=== PATIENT | male | born 1945 | race Caucasian/White ===

== ENCOUNTER → 2018-01-17 06:15 | Outpatient (CLI) | payer MEDICARE, SELFPAY ==
[2018-01-17 09:06] LABS: AST(SGOT) 39 U/L (15-37); Alanine Aminotransfer ALT/SGPT 40 U/L (16-61); Albumin, Serum 3.5 g/dL (3.2-5.0); Alkaline Phosphatase 102 U/L (45-117); Anion Gap 6 (5-15); BUN 25 mg/dL (7-18); BUN/Creat Ratio 18.5 RATIO (10-20); Bilirubin, Direct 0.08 mg/dL (0.00-0.30); Calcium,Total 8.7 mg/dL (8.5-10.1); Chloride 106 mmol/L (98-107); Cholesterol 147 mg/dL (200); Creatinine, Serum 1.35 mg/dL (0.70-1.30); EST Glomerular Filtration Rate 55 mL/min (>60); Est Glom Filt Rate - Afr Amer 67 mL/min (>60); Globulin 3.8 g/dL (2.2-4.2); Glucose 107 mg/dL (74-106); High Density Lipoprotein 21 mg/dL; Potassium 4.5 mmol/L (3.5-5.1); Protein, Total 7.3 g/dL (6.4-8.2); Sodium Level 142 mmol/L (136-145); T4 Total, Thyroxin 7.4 ug/dL (4.5-12.1); Triglycerides 779 mg/dL
== END ==
PROVIDERS: Family Provider Family Medicine; PCP Family Medicine; Visit Provider Internal Medicine Cardiovascular Disease
DX: E78.1 Pure hyperglyceridemia (principal); I25.10 Atherosclerotic heart disease of native coronary artery without angina pectoris; I10 Essential (primary) hypertension
CPT/HCPCS: 36415; 80048; 80061; 80076; 84436; 84443

== ENCOUNTER → 2018-03-10 07:31 | Outpatient (CLI) | payer MEDICARE, SELFPAY ==
[2018-03-10 08:35] LABS: AST(SGOT) 26 U/L (15-37); Alanine Aminotransfer ALT/SGPT 29 U/L (16-61); Albumin, Serum 3.7 g/dL (3.2-5.0); Alkaline Phosphatase 79 U/L (45-117); Bilirubin, Direct 0.23 mg/dL (0.00-0.30); Cholesterol 125 mg/dL (200); Globulin 3.8 g/dL (2.2-4.2); High Density Lipoprotein 34 mg/dL; Protein, Total 7.5 g/dL (6.4-8.2); Triglycerides 137 mg/dL; Very Low Density Lipoprotein 27 mg/dL (5-40)
== END ==
PROVIDERS: Family Provider Family Medicine; PCP Family Medicine; Visit Provider Physician Assistant Medical
DX: I25.118 Atherosclerotic heart disease of native coronary artery with other forms of angina pectoris (principal); E78.1 Pure hyperglyceridemia
CPT/HCPCS: 36415; 80061; 80076

== ENCOUNTER → 2018-09-15 07:39 | Outpatient (CLI) | payer MEDICARE, SELFPAY ==
--- NOTE | 2018-09-15 07:45 | RAD_ITS ---
STUDY: X-RAY - ABDOMEN/PELVIS REASON FOR EXAM: Male, 72 years old. History of kidney stones TECHNIQUE: Two AP supine views of the abdomen and pelvis. COMPARISON: 09/22/2017 FINDINGS: Normal visualized lung bases. There is an unremarkable bowel gas pattern. There is no demonstrated free abdominal air. There appears to be a left nephrolith measuring 9 mm. This appears grossly unchanged as compared to the most recent prior exam. Normal soft tissue structures. There are diffuse degenerative changes of the visualized lumbar spine. Left hip postsurgical changes RAD/Abdomen Single View IMPRESSION: Appearance of left nephrolithiasis Electronically Signed: Shyam Becker DO at 7:13 EST Tel , Service support ,
== END ==
PROVIDERS: Family Provider Family Medicine; PCP Family Medicine; Referring Provider Urology; Visit Provider Urology
DX: N20.0 Calculus of kidney (principal)
CPT/HCPCS: 74018

== ENCOUNTER 2018-10-12 12:04 | Day surgery (SDC) | payer MEDICARE, SELFPAY ==
[2018-10-12 12:35] VITALS: BP 106/57; PULSE 54; RESP 16; TEMP 37.1; O2SAT 97; BMI 33.1
[2018-10-12] MEDS: Cefazolin 2 GM in 0.9% Normal Saline 100 ML IV (14:42)
--- NOTE | 2018-10-12 14:47 | DCINST_ITS ---
Discharge Diet: Light diet - advance as tolerated Discharge Activity: Return to Normal Activity Call your doctor if your incision/area has: Continuous Slow Oozing, Sudden Increased Bleeding, Increased Pain/ Swelling, Increased Redness, Foul Smelling Discharge, Swelling at the incision site Allergies/Adverse Reactions: Allergies ranolazine [From Ranexa] Allergy (Verified 04/27/18 17:45) Unknown Sulfa (Sulfonamide Antibiotics) Allergy (Verified 04/27/18 17:45) Rash codeine Adverse Reaction (Verified 04/27/18 17:45) Nausea Medications to take at Discharge Folic Acid 0.4 mg PO DAILY 08/27/13 Multivitamins,Therapeutic [Multivitamin] 1 tab PO DAILY 08/27/13 Glucosamine Sulfate Dipot Chlr [Glucosamine Relief] 1 tab PO BID 10/01/14 [place]-3/Dha/Epa/Fish Oil [Fish Oil 1,400 mg Softgel] 1 tab PO DAILY 10/03/14 Meloxicam [Mobic] 15 mg PO QODAY 10/01/15 Acetaminophen [Pain Relief Extra Strength] 500 mg PO DAILY 01/07/16 clopidogrel 75 mg tablet 75 mg PO DAILY #90 tab 10/19/17 isosorbide mononitrate ER 60 mg tablet,extended release 24 hr 60 mg PO QAM #90 tab 10/19/17 lisinopril 10 mg-hydrochlorothiazide 12.5 mg tablet 0.5 tab PO DAILY #90 tab 10/19/17 metoprolol succinate ER 25 mg tablet,extended release 24 hr 25 mg PO QDAY #90 tab 10/19/17 pravastatin 40 mg tablet 40 mg PO QHS #90 tab 10/19/17 pyridoxine (vitamin B6) 100 mg tablet 100 mg PO QDAY 01/18/18 fenofibrate nanocrystallized 145 mg tablet 145 mg PO QDAY #90 tab 01/21/18 sour dos santos extract 1,000 mg capsule 1,000 mg PO DAILY 04/27/18 Amlodipine [Norvasc] 2.5 mg PO DAILY 10/05/18 Acetaminophen [Tylenol Extra Strength] 500 mg PO Q4H PRN PRN #20 tablet 10/12/18 Ibuprofen 600 mg PO Q6H PRN PRN #20 tablet 10/12/18 The following prescriptions were given: Acetaminophen [Tylenol Extra Strength] 500 mg PO Q4H PRN PRN #20 tablet PRN Reason: Pain Ibuprofen 600 mg PO Q6H PRN PRN #20 tablet PRN Reason: Pain Primary Care Physician: Elijah Rodríguez MD [Primary Care Provider] - Test Results: Test results from this visit will be discussed in further detail at your follow- up appointment, if applicable. Please Follow Up With: Daljit Yu MD When: in 2 weeks, please call to make an appointment with edinson
--- NOTE | 2018-10-12 15:33 | PCM.OPRPT ---
Report of Operation Date of Procedure: 10/12/18 Pre-Operative Diagnosis: Left kidney stone Post-Operative Diagnosis: Same Surgery/Procedure Performed:: left extracorporeal shockwave lithotripsy Description of Surgical Findings:: 72-year-old male taken back to the operating room after smooth induction of general anesthesia he was placed supine on the table and then we localize the stone in the left kidney under fluoroscopy we placed the stone in the F2 focal point of the lithotripter machine and a total of 3000 shockwaves were delivered to the stone the first initial 2000 shockwaves were at a rate of 60 power up to 7 and then after good fragmentation we increased the rate up to 120, 5 with a good fragmentation at the end of the treatment cycle, at the end of the treatment cycle stone are broken up really well anesthesia is being reversed and plan to see him back in a few weeks with a KUB. Type of Anesthesia:: General Drains: none - Admit VTE Documentation VTE Present on Admission: No VTE Mechan Device Prophylaxis: SCD's VTE Pharm Prophylaxis ordered?: No
[2018-10-12 15:41] VITALS: BP 106/57; BP 115/65; PULSE 65; RESP 14; TEMP 36.6; O2SAT 97
[2018-10-12 15:45] VITALS: BP 106/57; BP 110/71; PULSE 65; RESP 16; O2SAT 96
[2018-10-12 16:00] VITALS: BP 106/57; BP 121/78; PULSE 60; RESP 18; O2SAT 99
[2018-10-12] MEDS: Ketorolac 15 MG/ML Vial IV (16:12)
[2018-10-12 16:15] VITALS: BP 106/57; BP 109/71; PULSE 56; RESP 18; TEMP 36.2; O2SAT 99
[2018-10-12] MEDS: Tamsulosin HCl 0.4 MG Capsule PO (19:20)
[2018-10-12 19:24] VITALS: BP 106/57
== END 2018-10-12 19:25 | disposition home or self-care (01) ==
LOC: SDC 12:05 → AC 12:07
PROVIDERS: Family Provider Family Medicine; PCP Family Medicine; Referring Provider Urology; Visit Provider Urology
PROC: (CPT 50590; principal; 2018-10-12 13:55)
DX: N20.0 Calculus of kidney (principal); N40.1 Benign prostatic hyperplasia with lower urinary tract symptoms; R33.8 Other retention of urine; R35.1 Nocturia; I25.10 Atherosclerotic heart disease of native coronary artery without angina pectoris; I10 Essential (primary) hypertension; E78.00 Pure hypercholesterolemia, unspecified; H91.93 Unspecified hearing loss, bilateral; M19.90 Unspecified osteoarthritis, unspecified site; Z79.02 Long term (current) use of antithrombotics/antiplatelets; Z79.899 Other long term (current) drug therapy; Z85.528 Personal history of other malignant neoplasm of kidney; Z87.442 Personal history of urinary calculi; Z86.73 Personal history of transient ischemic attack (TIA), and cerebral infarction without residual deficits
CPT/HCPCS: 00873; 50590; J7120; J2405

== ENCOUNTER → 2018-10-27 09:18 | Outpatient (CLI) | payer MEDICARE, SELFPAY ==
[2018-10-12 12:35] VITALS: BMI 33.1
--- NOTE | 2018-10-27 09:23 | RAD_ITS ---
STUDY: X-RAY - ABDOMEN/PELVIS REASON FOR EXAM: Male, 73 years old. Left-sided lithotripsy. TECHNIQUE: KUB COMPARISON: X-ray abdomen 09/15/2018, 09/22/2017. FINDINGS: Small radiodensity projecting over the left renal lower pole calyceal position. No apparent calculi projecting over the right kidney. No apparent calculi projecting along the course of the ureters. Stable left pelvic phlebolith. Unremarkable bowel pattern. Mild scoliosis and mild lumbar spondylosis. Postsurgical changes of the left hip joint, arthroplasty and plate and screw fixation of acetabulum. Moderate degenerative features of the right hip joint with joint margin osteophytic lipping, mild joint space narrowing, acetabular sclerosis. RAD/Abdomen Single View IMPRESSION: Small residual calculus lower pole left kidney calyceal position. No visible calculi of the right kidney or along the course of the ureters. Electronically Signed: Jameson Leal MD at 13:58 EST Tel , Service support ,
== END ==
PROVIDERS: Family Provider Family Medicine; PCP Family Medicine; Referring Provider Urology; Visit Provider Urology
DX: N20.0 Calculus of kidney (principal)
CPT/HCPCS: 74018

== ENCOUNTER → 2018-11-28 09:30 | Outpatient (CLI) | payer MEDICARE, SELFPAY ==
--- OUTSIDE RECORDS SUMMARY | 2019-01-30 17:27 | XMS RPT_ITS ---
:1945 Author Organization OHIP Support Name Relationship Address Phone R Unavailable Unavailable Unavailable MONE, ANNA Unavailable [address] + [place] [address] ARIE SHORESIE Unavailable Unavailable + R Unavailable Unavailable Unavailable MONE, ANNA Unavailable [address] + [place] [address] ARIE SHORESIE Unavailable Unavailable + R Unavailable Unavailable Unavailable MONE, ANNA Unavailable [address] + [place] [address] ARIE SHORESIE Unavailable Unavailable + R Unavailable Unavailable Unavailable MONE, ANNA Unavailable [address] + [place] [address] ARIE SHORESIE Unavailable Unavailable + [place] [address] R Unavailable Unavailable Unavailable MONE, ANNA Unavailable [address] + [place] [address] ARIE SHORESIE Unavailable Unavailable + R Unavailable Unavailable Unavailable MONE, ANNA Unavailable [address] + [place] [address] R Unavailable Unavailable Unavailable MONE, ANNA Unavailable [address] + [place] [address] R Unavailable Unavailable Unavailable MONE, ANNA Unavailable [address] + [place] [address] R Unavailable Unavailable Unavailable MONE, ANNA Unavailable [address] + [place] [address] R Unavailable Unavailable Unavailable MONE, ANNA Unavailable [address] + [place] [address] R Unavailable Unavailable Unavailable MONE, ANNA Unavailable [address] + [place] [address] R Unavailable Unavailable Unavailable MONE, ANNA Unavailable [address] + [place] [address] Care Team Providers Name Role Phone Daljit Yu Attending Unavailable AimeeDaljit Referring Unavailable TAFOYA, ELIJAH O Primary Care Unavailable Ynes Rendon Attending Unavailable Ynes Rendon Referring Unavailable TAFOYA, ELIJAH O Primary Care Unavailable Pratima, Austen Attending Unavailable TAFOYA, ELIJAH O Referring Unavailable Pratima, Eolia Attending Unavailable Pratima, Eolia Referring Unavailable TAFOYA, ELIJAH O Primary Care Unavailable Martha Lindsay Attending Unavailable Ynes Rendon Attending Unavailable TAFOYA, ELIJAH O Referring Unavailable RendonYnes ly Attending Unavailable RendonYnes ly Referring Unavailable TAFOYA, ELIJAH O Primary Care Unavailable Araseli Dao Attending Unavailable Ynes Rendon Attending Unavailable TAFOYA, ELIJAH O Referring Unavailable TAFOYA, ELIJAH O Primary Care Unavailable Ridge Duvall Attending Unavailable TAFOYA, ELIJAH O Referring Unavailable TAFOYA, ELIJAH O Primary Care Unavailable Daljit Yu Attending Unavailable AimeeDaljit Referring Unavailable TAFOYA, ELIJAH O Primary Care Unavailable AimeeDaljit Attending Unavailable AimeeDaljit Referring Unavailable TAFOYA, ELIJAH O Primary Care Unavailable JAKY QUIROGA (INSURANCE PROCESSOR) Attending Unavailable QUIROGA, JAKY (INSURANCE PROCESSOR) Referring Unavailable QUIROGA, JAKY (INSURANCE PROCESSOR) Referring Unavailable QUIROGA, JAKY (INSURANCE PROCESSOR) Referring Unavailable QUIROGA, JAKY (INSURANCE PROCESSOR) Referring Unavailable QUIROGA, JAKY (INSURANCE PROCESSOR) Referring Unavailable QUIROGA, JAKY (INSURANCE PROCESSOR) Referring Unavailable QUIROGA, JAKY (INSURANCE PROCESSOR) Attending Unavailable JUSTINO SMITH Referring Unavailable QUIROGA, JAKY (INSURANCE PROCESSOR) Referring Unavailable QUIROGA, JAKY (INSURANCE PROCESSOR) Referring Unavailable QUIROGA, JAKY (INSURANCE PROCESSOR) Referring Unavailable QUIROGA, JAKY (INSURANCE PROCESSOR) Referring Unavailable QUIROGA, JAKY (INSURANCE PROCESSOR) Attending Unavailable QUIROGA, JAKY (INSURANCE PROCESSOR) Referring Unavailable Tafoya, Elijah Attending Unavailable Tafoya, Elijah Primary Care Unavailable Tafoya, Elijah Attending Unavailable Tafoya, Elijah Primary Care Unavailable Tafoya, Elijah Admitting Unavailable Tafoya, Elijah Attending Unavailable Tafoya, Elijah Primary Care Unavailable Tafoya, Elijah Attending Unavailable Tafoya, Elijah Primary Care Unavailable Ben Grossman Consulting Unavailable Tafoya, Elijah Admitting Unavailable Tafoya, Elijah Attending Unavailable Tafoya, Elijah Primary Care Unavailable Tafoya, Elijah Admitting Unavailable Tafoya, Elijah Attending Unavailable Tafoya, Leijah Primary Care Unavailable Tafoya, Elijah Attending Unavailable Tafoya, Elijah Primary Care Unavailable Ben Grossman Attending Unavailable Tafoya, Elijah Primary Care Unavailable Ben Grossman Admitting Unavailable Ben Grossman Attending Unavailable Tafoya, Elijah Primary Care Unavailable Ben Grossman Attending Unavailable Tafoya, Elijah Primary Care Unavailable PROBLEMS PROBLEMS DATE TYPE CONDITION / CODE ATTENDING STATUS SOURCE 12/01/2018 Unknown I25.118 - Pratima, Eolia Active [facility] [place] [facility] coronary artery with Repository other forms of angina pectoris / I25.118(ICD-10) 12/01/2018 Unknown I10 - Essential Pratima, Eolia Active [facility] (primary) hypertension Community / I10(ICD-10) Hospital Repository 12/01/2018 Unknown E78.00 - Pure Pratima, Austen Active [place] hypercholesterolemia, Community unspecified / Hospital E78.00(ICD-10) Repository 11/28/2018 Unknown E78.5 - Rendon, Active [facility] Hyperlipidemia, Ynes Community unspecified / Hospital E78.5(ICD-10) Repository 10/27/2018 Unknown N20.0 - Calculus of Aimee, Daljit Active [facility] kidney / N20.0(ICD-10) [facility] Repository 07/21/2018 Active Generalized abdominal NA Active [facility] pain / R10.84(ICD-10) [facility] [place] Repository 07/21/2018 Active Unknown / UNK(Unknown) NA Active [facility] [place] Repository 10/02/2015 Active Malignant neoplasm of NA Active [facility] ascending colon / Clinic Main C18.2(ICD-10) [place] Repository 01/21/2018 Unknown E78.1 - Pure Rendon, Active [facility] hyperglyceridemia / [facility] E78.1(ICD-10) Hospital Repository PROCEDURES PROCEDURES No Procedure Records FoundRESULTS RESULTS CARDIOLOGY VISIT Observed: 12/01/2018 Status: F Source: [place] REPORT 9:40 AM [facility] REPOSITORY [facility] [address] [place] [address] OFFICE VISIT Date of Service: 12/01/18 MR#: [id number] Acct: [id number] Name: BEATRICE SHORE Rep #: [id number] : 1945 Provider: Austen Andujar MD Age/Sex: 73/M Location: [facility] [place] Status: Signed HPI HPI Chief Complaint: Follow up Details: BEATRICE SHORE, is a 73 M who presents to the office today for a follow-up visit. He is a gentleman with a history of hypertension, coronary artery disease, hyperlipidemia transient ischemic attack episodes who returns for routine follow-up visit. He denies any chest pain or shortness breath or paroxysmal nocturnal dyspnea pedal edema he tells me that he had some problems with his kidneys underwent lithotripsy successfully without any problems but he does have some mild renal dysfunction. He has had no neck arm or jaw discomfort suggest angina. His physical exam here today demonstrates clear lung hirsch regular rate and rhythm and no pedal edema his blood pressure is under excellent control. Intake Vital Signs12/01/18 Height 5 ft 11 in 12/01/18 Weight: 248 lb 12/01/18 Body Mass Index (BMI) 34.5 12/01/18 Blood Pressure 106/62 12/01/18 Blood Pressure Location Lt brachial Intake Visit Reasons: 6 M FU Safety Teacher Required: No Is patient in pain?: No Allergies ranolazine [From Ranexa] Allergy (Verified 12/01/18 09:01) Unknown Sulfa (Sulfonamide Antibiotics) Allergy (Verified 12/01/18 09:01) Rash codeine Adverse Reaction (Verified 12/01/18 09:01) Nausea Medications Folic Acid 0.4 mg PO DAILY 08/27/13 [History Confirmed 12/01/18] Multivitamins,Therapeutic [Multivitamin] 1 tab PO DAILY 08/27/13 [History Confirmed 12/01/18] Glucosamine Sulfate Dipot Chlr [Glucosamine Relief] 1 tab PO BID 10/01/14 [History Confirmed 12/01/18] Marion-3/Dha/Epa/Fish Oil [Fish Oil 1,400 mg Softgel] 1 tab PO DAILY 10/03/14 [History Confirmed 12/01/18] clopidogrel 75 mg tablet 75 mg PO DAILY #90 tab 10/19/17 [Rx Confirmed 12/01/18] lisinopril 10 mg-hydrochlorothiazide 12.5 mg tablet 0.5 tab PO DAILY #90 tab 10/19/17 [Rx Confirmed 12/01/18] metoprolol succinate ER 25 mg tablet,extended release 24 hr 25 mg PO QDAY #90 tab 10/19/17 [Rx Confirmed 12/01/18] pyridoxine (vitamin B6) 100 mg tablet 100 mg PO QDAY 01/18/18 [History Confirmed 12/01/18] fenofibrate nanocrystallized 145 mg tablet 145 mg PO QDAY #90 tab 01/21/18 [Rx Confirmed 12/01/18] sour reyes extract 1,000 mg capsule 1,000 mg PO DAILY 04/27/18 [History Confirmed 12/01/18] Amlodipine [Norvasc] 2.5 mg PO DAILY 10/05/18 [History Confirmed 12/01/18] Acetaminophen [Tylenol Extra Strength] 500 mg PO Q4H PRN PRN #20 tab 10/12/18 [Rx Confirmed 12/01/18] Ibuprofen 600 mg PO Q6H PRN PRN #20 tab 10/12/18 [Rx Confirmed 12/01/18] pravastatin 40 mg tablet 40 mg PO QHS #90 tab 10/14/18 [Rx Confirmed 12/01/18] isosorbide mononitrate ER 60 mg tablet,extended release 24 hr 60 mg PO QAM #90 tab 10/17/18 [Rx Confirmed 12/01/18] PFS Medical History Atherosclerotic heart disease of [place] coronary artery with other forms of angina pectoris (Chronic) Hypertension (Chronic) Transient ischemic attack (Chronic) WENDY (obstructive sleep apnea) (Chronic) Hyperlipidemia (Chronic) Essential hypertension (Chronic) Hypertriglyceridemia (Chronic) CAD (coronary artery disease) (Chronic) CKD (chronic kidney disease) stage 3, GFR 30-59 ml/min (Chronic) Arthritis (Acute) Heart disease (Acute) Hemorrhoids (Acute) History of CVA (cerebrovascular accident) (Acute) Knee pain (Acute) Shoulder pain (Acute) Stomach ulcer (Acute) hx of cancer (Acute) Surgical History History of colectomy (Resolved) History of left hip replacement (Resolved) History of lithotripsy (Resolved) Family History Father CAD (coronary artery disease) Mother CAD (coronary artery disease) Sister HLD (hyperlipidemia) TIA (transient ischemic attack) Social History Smoking Status: Never smoker alcohol intake: never substance use type: does not use caffeine: No what type of physical activity do you participate in: bicycling frequency: daily duration: 30-45 minutes/day seatbelt use: always do you feel safe at home: Yes ROS Const Const: Negative for fatigue, weakness, night sweats, excessive sweating, frequent falls, headache(s) or daytime sleepiness Eyes Eyes: Negative for loss of peripheral vision, transient loss of vision, blind spots, double vision or blurry vision ENT ENT: Negative for headache(s), dizziness, balance problems, Nosebleed/epistaxis, tongue swelling or lip swelling Cardio Chest Pain: No Palpitations: No Edema: None Muscle aches with walking: None Resp Respiratory: Negative for SOB at rest, SOB orthopnea\SOB lying down, Cough, paroxysmal nocturnal dyspnea or SOB with activity GI GI: Negative nausea, vomiting, heartburn, black,tarry stools or bright, red blood in stools : Negative for hematuria Musc Musc: Negative for balance problems, muscle aches/ myalgia, muscle weakness or joint pain Skin Skin: Negative non-healing lesions, unusual bruising or rash Neuro Neuro: Negative for weakness, frequent falls, headache(s), double vision, dizziness, lightheadedness, orthostatic symptoms, blurry vision or lack of coordination Bladimir Hematologic/Lymphatic: Negative for easy bruising or easy bleeding Endo Endo: Negative for fatigue, excessive sweating, cold intolerance, heat intolerance, increased thirst/drinking or hair loss Psych Psych: Negative for anxiety or depression Allergy Allergy/Immunology: Negative for throat swelling, Negative for tongue swelling, Negative for hives, Negative for rash, Negative for lip swelling Cardiology Exam Const Appearance: cooperative, healthy appearing, well developed, well groomed and no acute distress Nutritional Appearance: well nourished and average body habitus Orientation: alert, awake and oriented x3 Head Head: normal to inspection, normocephalic and atraumatic Ears: hearing grossly normal bilaterally and external ears normal Nose: external nose normal, nasal mucous membranes and turbinates normal, nares normal, septum normal, no nasal discharge Face and Sinus: face symmetric Mouth: oral mucosae normal, tongue normal, oropharynx normal and moist mucous membranes Teeth and gingiva: dentition normal Throat: posterior oropharynx normal, tonsils normal and uvula midline Eyes General: appearance normal, both eyes and all related structures Eyelids: eyelids normal Conjunctivae: conjunctivae normal Pupils: PERRL, normal by confrontation and accommodation normal EOM: EOM intact bilaterally Neck Neck: normal visual inspection, trachea midline and no JVD JVD: +5 Carotids: normal carotid upstroke and bounding pulses Chest Chest inspection: normal inspection of the chest, symmetric chest movement and normal respiratory effort Auscultation: Bilateral: Clear to Auscultation Cardio Palpation: normal PMI Rate: regular rate Rhythm: regular rhythm Heart sounds: S1 normal, S2 normal and normal, physiologic split S2; negative rub, gallop or murmur GI GI: normal to inspection, soft, no hepatosplenomegaly and bowel sounds present Neuro General: alert, awake, oriented x3, no focal sensory deficit, gait normal and moves all extremities Skin Skin: no rashes or lesions noted Extremities Pulses: Normal: Right Femoral Pulse, Left Femoral Pulse, Right Dorsalis Pedis Pulse, Left Dorsalis Pedis Pulse, Right Posterior Tibial Pulse, Left Posterior Tibial Pulse, Right Radial Pulse, Left Radial Pulse Lower Extremity Edema: None: Bilateral Musculoskel Musculoskeletal: No joint tenderness Psych Psychological: normal affect Assessment AND Plan 1. Atherosclerotic heart disease of [place] coronary artery with other forms of angina pectoris I25.118 Plan He does have mild atherosclerotic cardiovascular disease his last catheterization in 2016 demonstrated a distal subtotal occlusion of the circumflex artery with left to left collaterals. No high-grade stenosis was noted in the LAD or right coronary artery and medical therapy has been recommended and he continues to do well. 2. Essential hypertension I10 Plan He does have a history of hypertension which is well controlled at this particular time and I would not recommend that we make any changes to his current regimen. 3. Pure hypercholesterolemia E78.00 Plan He does have a history of hyperlipidemia his most recent lipid profile demonstrated total cholesterol 139, triglycerides 161, HDL 36 and LDL 71. These numbers are excellent no changes will be made. He should continue with risk factor modification. His is concerned about him having seasonal affective disorder. My only suggestion would be for him to get more sunlight. 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 I25.118 Essential hypertension I10 Pure hypercholesterolemia E78.00 Hyperlipidemia type: pure hypercholesterolemia Supplemental Info Supplemental Information Labs LDL Cholesterol 64 mg/dL (0-130) 03/10/18 HDL Cholesterol 34 mg/dL (40-) L 03/10/18 Triglycerides 137 mg/dL (-199) 03/10/18 VLDL Cholesterol 27 mg/dL (5-40) 03/10/18 12/01/18 0940 <Electronically signed by Austen Andujar MD> Date Austen Andujar MD Cosigner Signature: Date (if applicable) CC: Elijah Tafoya MD CNOVSP Observed: 11/16/2018 Status: COMPLETED Source: [place] 11:00 AM [facility] REPOSITORY Visit (SP) Office (HEMAWS) BEATRICE SHORE ([id number]) 1945 M Date Time Provider Department 11/16/18 11:00 AM JAKY QUIROGA During your visit today, we recorded the following information about you: Temperature Pulse Blood pressure Weight 98.3 degrees 59/minute 121/75 112 kg Jaky Quiroga APRN.INSURANCE PROCESSOR 11/17/2018 12:29 PM Signed Chief Complaint Patient presents with: Established Patient HPI: Beatrice Shore is a 73 year old male who presents here today for follow up colon cancer. Per Dr. Smith's previous note: H/o?CAD?(Heart cath x2; no stents/CABG; medically managed previously with Plavix and ASA), OA?(was on Meloxicam for right knee pain), TIA?(10/2014; manifested by change in concentration and blurred vision) and sleep apnea. ?? Developed acute lower GI bleed in September 2015. Underwent colonoscopy 09/12/2015 and found to have suspicious appearing mass in the cecum--biopsy showed intramucosal carcinoma. ?? Baseline CEA=5.8 ng/mL. ?? Underwent hemicolectomy 10/07/2015. 4.6 cm well diff tumor with invasion through muscularis propria. No LVI No perineural invasion. 30 of 30 nodes negative. No evidence microsatellite instability by IHC. ? Had colonoscopy done 2016. Next due in 3 years. ? No complaints. ? Appetite:good ?Energy level:it's enough Denies fevers or recent illness. 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 Past medical history, appointments, medications, allergies reviewed. No changes. EXAM: BP 121/75 Pulse (!) 59 Temp 36.8 ?C (98.3 ?F) (Oral) Wt 112 kg (247 lb) BMI 33.50 kg/m? APPEARANCE Well appearing, alert, in no acute distress, well- hydrated, well nourished. HEART RRR with normal S1 and S2, no murmurs LUNG clear to auscultation LYMPH NODES No cervical lymphadenopathy, No supraclavicular lymphadenopathy and No axillary lymphadenopathy. ABDOMEN bowel sounds normoactive, soft, non-tender, non-distended, without organomegaly or palpable masses EXTREMITIES No edema NEURO Awake, alert and oriented x 3, Normal gait and No involuntary motions. SKIN Skin color, texture, turgor normal, no suspicious rashes or lesions LABS: CEA: Pending ASSESSMENT/PLAN: 1. 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 ? Per Dr. Smith's previous note: Did not recommend adjuvant chemotherapy based on stage and histologic features. - ?No concerning findings on exam. - CEA pending. - ?Colonoscopy due 2019. - ?Follow up in 6 months with CEA pending today's CEA. - ?Pt. aware to call office with any questions/concerns. The patient indicates understanding of these issues and agrees with the plan. Jaky Quiroga APRN.INSURANCE PROCESSOR Referring Provider: JAKY QUIROGA [[id number]] Allergies As of Date: 11/16/2018 Noted Allergy Reaction CODEINE 01/23/2014 1 - Mental Status Change SULFA (SULFONAMIDE ANTIBIOTICS) 01/23/2014 4 - Hives Date Reviewed: 11/16/2018 Reviewed by: Jaky Quiroga - Fully Assessed Reason for Visit: Established Patient [175] Primary Visit Diagnosis:Malignant neoplasm of ascending colon (HCC) [C18.2] Follow-up and Disposition History Recorded Prescriptions as of 11/16/2018 Sig: FENOFIBRATE NANOCRYSTALLIZED * 1 tablet once daily. CLOPIDOGREL 75 MG TABLET Take 75 mg by mouth once katerine* AMLODIPINE 5 MG TABLET Take 1/2 tablet by mouth once* SOUR REYES EXTRACT 1,000 MG * Take 1 tablet by mouth once d* ISOSORBIDE MONONITRATE ER 60 * Take 60 mg by mouth once katerine* PRAVASTATIN 40 MG TABLET Take 40 mg by mouth once katerine* MELOXICAM 15 MG TABLET Take one tablet by mouth ever* METOPROLOL SUCCINATE ER 25 MG* Take 25 mg by mouth once katerine* DIPHENHYDRAMINE 25 MG-ACETAMI* Take 1 tablet by mouth at bed* PYRIDOXINE (VITAMIN B6) 100 M* Take 100 mg by mouth once suleiman* GLUCOSAMINE AND CHONDROIT SUL.N* Take 1 tablet by mouth twice * LISINOPRIL 10 MG-HYDROCHLOROT* Take 0.5 tablets by mouth onc* FOLIC ACID ORAL Take 400 mcg by mouth once da* OMEGA 3 FISH OIL ORAL Take 950 mg by mouth once suleiman* MULTIVITAMIN CAPSULE Take 1 capsule by mouth once * Medication notes this encounter DIPHENHYDRAMINE 25 MG-ACETAMINOPHEN 500 MG TABLET >> Lui Lloyd MA 11/16/2018 10:43 AM >> LUI LLOYD MA Nov 16, 2018 10:43 AM as necessary Problem List As Of Date 11/16/2018 Noted Resolved Colon polyp [K63.5] INVALID FOR* Rectal bleeding [K62.5] INVALID FOR* Left lower quadrant pain [R10.32] INVALID FOR* Transient cerebral ischemia [G45.9] INVALID FOR* ASCVD (arteriosclerotic cardiovascular disease)*INVALID FOR* Malignant neoplasm of ascending colon (HCC) [C1*INVALID FOR* Malignant neoplasm of colon (HCC) [C18.9] INVALID FOR* Encounter Status:Closed by JAKY QUIROGA INSURANCE PROCESSOR on 11/17/18 PROGRESS Observed: 11/16/2018 Status: COMPLETED Source: [place] 10:44 AM [facility] REPOSITORY HNO ID: [id number] Author: Jaky Quiroga Service: (none) Author Type: Nurse Practitioner Type: Progress Notes Filed: 11/17/2018 12:29 PM Note Text: Chief Complaint Patient presents with: Established Patient HPI: Beatrice Shore is a 73 year old male who presents here today for follow up colon cancer. Per Dr. Smith's previous note: H/o?CAD?(Heart cath x2; no stents/CABG; medically managed previously with Plavix and ASA), OA?(was on Meloxicam for right knee pain), TIA?(10/2014; manifested by change in concentration and blurred vision) and sleep apnea. ?? Developed acute lower GI bleed in September 2015. Underwent colonoscopy 09/12/2015 and found to have suspicious appearing mass in the cecum--biopsy showed intramucosal carcinoma. ?? Baseline CEA=5.8 ng/mL. ?? Underwent hemicolectomy 10/07/2015. 4.6 cm well diff tumor with invasion through muscularis propria. No LVI No perineural invasion. 30 of 30 nodes negative. No evidence microsatellite instability by IHC. ? Had colonoscopy done 2016. Next due in 3 years. ? No complaints. ? Appetite:good ?Energy level:it's enough Denies fevers or recent illness. 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 Past medical history, appointments, medications, allergies reviewed. No changes. EXAM: BP 121/75 Pulse (!) 59 Temp 36.8 ?C (98.3 ?F) (Oral) Wt 112 kg (247 lb) BMI 33.50 kg/m? APPEARANCE Well appearing, alert, in no acute distress, well-hydrated, well nourished. HEART RRR with normal S1 and S2, no murmurs LUNG clear to auscultation LYMPH NODES No cervical lymphadenopathy, No supraclavicular lymphadenopathy and No axillary lymphadenopathy. ABDOMEN bowel sounds normoactive, soft, non-tender, non-distended, without organomegaly or palpable masses EXTREMITIES No edema NEURO Awake, alert and oriented x 3, Normal gait and No involuntary motions. SKIN Skin color, texture, turgor normal, no suspicious rashes or lesions LABS: CEA: Pending ASSESSMENT/PLAN: 1. 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 ? Per Dr. Smith's previous note: Did not recommend adjuvant chemotherapy based on stage and histologic features. - ?No concerning findings on exam. - CEA pending. - ?Colonoscopy due 2019. - ?Follow up in 6 months with CEA pending today's CEA. - ?Pt. aware to call office with any questions/concerns. The patient indicates understanding of these issues and agrees with the plan. Jaky Quiroga APRN.INSURANCE PROCESSOR CEA Collected: 11/16/2018 Status: F Source: [place] 10:21 AM [facility] REPOSITORY TYPE CODE TESTS RESULT OUT OF RANGE REFERENCE UNITS LAB CEA 0.0-2.9 ng/mL CEA 0.7 Result Comment: Test analyzed by the [employer] DxI method. Performed By: #### CEA #### [facility] [address] [place] [id number] PSA SCREEN Collected: 11/14/2018 Status: F Source: [place] 9:31 AM [facility] REPOSITORY TYPE CODE TESTS RESULT OUT OF RANGE REFERENCE UNITS LAB [id number](LO ng/mL INC) Normal PSA 0.67 Result Comment: AGE-SPECIFIC REFERENCE RANGES FOR SERUM PSA REFERENCE RANGE NG/ML AGE ASIANS BLACKS WHITE 40-49 0- 2 0-2 0-2.5 50-59 0- 3 0-4 0-3.5 60-69 0- 4 0-4.5 0-4.5 70-79 0- 5 0-5.5 0-6.5 PSA INCREASES WITH AGE, RACE, AND EJACULATION WITHIN 48 HRS. [facility] VOL24,NO.2, , PG.339 Performed By: #### [id number] #### JAMIR [employer] [address] [place] [address] Collected: 11/14/2018 Status: F Source: BAHAI 9:31 AM [facility] REPOSITORY TYPE CODE TESTS RESULT OUT OF RANGE REFERENCE UNITS LAB [id number](L 70-99 mg/dL OINC) Glucose Normal Lvl 97 LAB [id number](L 6-23 mg/dL OINC) High BUN 35 LAB [id number](LO 0.5-1.3 mg/dL INC) High Creatinine 1.7 LAB [id number](L 8.6-10.3 mg/dL OINC) Calcium Normal Lvl 9.9 LAB [id number](L 136-145 mEq/L OINC) Sodium Normal Lvl 143 LAB [id number](L 3.5-5.3 mEq/L OINC) Normal Potassium Lvl 4.3 LAB 96481330(L 98-107 mEq/L OINC) Chloride Normal 107 LAB [id number](L 21.0-32.0 mEq/L OINC) CO2 Normal 32.0 LAB [id number](L 33-136 Int._Unit/ OINC) L Alk Phos Normal 56 LAB [id number](L 0.00-1.20 mg/dL OINC) Bili Normal Total 0.94 LAB [id number](L 3.4-5.0 gm/dL OINC) Albumin Normal Lvl 4.1 LAB [id number](L 6.4-8.2 gm/dL OINC) Total Normal Protein 7.1 LAB [id number](L 10-52 Int._Unit/ OINC) L ALT Normal 23 LAB [id number](L 9-39 Int._Unit/ OINC) L AST Normal 24 LAB [id number](L 5.4-30.0 ratio OINC) Normal BUN/Creat Ratio 20.6 LAB [id number](L 10-20 mEq/L OINC) Low AGAP 9 LAB 21784820(L 2.0-4.0 G/DL OINC) Globulin Normal 3.0 LAB [id number](L 1.1-1.9 ratio OINC) A/G Normal Ratio 1.4 Performed By: #### [id number] #### JAMIR [employer] [facility] [place] [address] EGFR Collected: 11/14/2018 Status: F Source: BAHAI 9:31 AM [facility] REPOSITORY Order Comment: Order added by Discern Expert. TYPE CODE TESTS RESULT OUT OF RANGE REFERENCE UNITS LAB [id number](LO mL/min/1.73 INC) m2 Normal eGFR 40 LAB [id number](LO mL/min/1.73 INC) m2 Normal eGFR AA 49 Performed By: #### [id number] #### JAMIR [employer] [facility] [place] [address] LIPID PROFILE Collected: 11/14/2018 Status: F Source: BAHAI 9:[address] [facility] REPOSITORY TYPE CODE TESTS RESULT OUT OF RANGE REFERENCE UNITS LAB [id number](LO 0-199 mg/dL INC) Normal Chol 139 Result Comment: TOTAL CHOLEESTEROL: <200 NORMAL 200 - 239 BORDERLINE HIGH >240 HIGH LAB 92332600(LOINC) 40-60 mg/dL Low HDL 36 LAB 14138516(LOINC) 0-130 mg/dL Normal LDL 71 Result Comment: <100 OPTIMAL 100-129 NEAR / ABOVE OPTIMAL 130-159 BORDERLINE HIGH 160-189 HIGH >190 VERY HIGH CALC LDL NOT VALID WHEN TRIGLYCERIDE IS >400 MG/DL LAB 64964435(LOINC) 0-149 mg/dL High Trig 161 Result Comment: AGE DESIRABLE BORDERLINE HIGH 91 D - 9 Y 0 - 74 75 - 99 > 100 10 - 19 Y 0 - 89 90 - 129 > 130 20 -24 Y 0 - 114 115 - 149 > 150 > 25 0 - 149 150 - 199 200 - 499 LAB 23641203(LOINC) 0-40 mg/dL Normal VLDL 32 Performed By: #### [id number] #### JAMIR [employer] [address] [place] [address] HGBA1C Collected: 11/14/2018 Status: F Source: BAHAI 9:31 AM [facility] REPOSITORY TYPE CODE TESTS RESULT OUT OF RANGE REFERENCE UNITS LAB [id number]( 4.0-6.3 % LOINC) Normal Hemoglobin A1c 5.9 Performed By: #### [id number] #### JAMIR Chemistry Manual Subsection [facility] [place] [id number] ABDOMEN SINGLE VIEW Observed: 10/27/2018 Status: F Source: ZAPATA 9:20 AM [facility] REPOSITORY [facility] Imaging Services [address] [place] [address] Abdomen Single View MR#: [id number] Acct: [id number] Name: BEATRICE SHORE Rep #: [id number] : 1945 M 73 From: Jameson Leal MD PCP: Elijah Tafoya MD Status: REG CLI Study: Abdomen Single View Date of Exam: 10/27/18 Exam# [id number] Ordering Dr: Daljit Yu MD STUDY: X-RAY - ABDOMEN/PELVIS REASON FOR EXAM: Male, 73 years old. Left-sided lithotripsy. TECHNIQUE: KUB COMPARISON: X-ray abdomen 09/15/2018, 09/22/2017. FINDINGS: Small radiodensity projecting over the left renal lower pole calyceal position. No apparent calculi projecting over the right kidney. No apparent calculi projecting along the course of the ureters. Stable left pelvic phlebolith. Unremarkable bowel pattern. Mild scoliosis and mild lumbar spondylosis. Postsurgical changes of the left hip joint, arthroplasty and plate and screw fixation of acetabulum. Moderate degenerative features of the right hip joint with joint margin osteophytic lipping, mild joint space narrowing, acetabular sclerosis. RAD/Abdomen Single View IMPRESSION: Small residual calculus lower pole left kidney calyceal position. No visible calculi of the right kidney or along the course of the ureters. Electronically Signed: Jameson Leal MD at 13:58 EST Tel , Service support , CC: Daljit Yu MD; Elijah Tafoya MD Environmental Studies Professor: Signed OPERATIVE REPORT Observed: 10/12/2018 Status: F Source: ZAPATA 3:35 PM [facility] REPOSITORY [facility] Medical Records Department [address] [place] [address] Operative Report 10/12/18 1533 MR#: [id number] Acct: [id number] Name: BEATRICE SHORE Rep #: [id number] : 1945 72 From: Daljit Yu MD PCP: Elijah Tafoya MD Status: REG [facility] Y Location: [place] [address] Report of Operation Date of Procedure: 10/12/18 Pre-Operative Diagnosis: Left kidney stone Post-Operative Diagnosis: Same Surgery/Procedure Performed:: left extracorporeal shockwave lithotripsy Description of Surgical Findings:: 72-year-old male taken back to the operating room after smooth induction of general anesthesia he was placed supine on the table and then we localize the stone in the left kidney under fluoroscopy we placed the stone in the F2 focal point of the lithotripter machine and a total of 3000 shockwaves were delivered to the stone the first initial 2000 shockwaves were at a rate of 60 power up to 7 and then after good fragmentation we increased the rate up to 120, 5 with a good fragmentation at the end of the treatment cycle, at the end of the treatment cycle stone are broken up really well anesthesia is being reversed and plan to see him back in a few weeks with a KUB. Type of Anesthesia:: General Drains: none - Admit VTE Documentation VTE Present on Admission: No VTE Mechan Device Prophylaxis: SCD's VTE Pharm Prophylaxis ordered?: No 10/12/18 1535 <Electronically signed by Daljit Yu MD> Date Daljit Yu MD CC: Daljit Yu MD; Elijah Tafoya MD Signed DISCHARGE INSTRUCTION Observed: 10/12/2018 Status: F Source: ZAPATA 2:47 PM [facility] REPOSITORY [facility] Medical Records Department [address] [place] [address] Instructions for Home/Discharge Instructions 10/12/18 1446 MR#: [id number] Acct: [id number] Name: BEATRICE SHORE Rep #: [id number] : 1945 72 From: Daljit Yu MD PCP: Elijah Tafoya MD Status: REG [facility] Discharge Diet: Light diet - advance as tolerated Discharge Activity: Return to Normal Activity Call your doctor if your incision/area has: Continuous Slow Oozing, Sudden Increased Bleeding, Increased Pain/ Swelling, Increased Redness, Foul Smelling Discharge, Swelling at the incision site Allergies/Adverse Reactions: Allergies ranolazine [From Ranexa] Allergy (Verified 04/27/18 17:45) Unknown Sulfa (Sulfonamide Antibiotics) Allergy (Verified 04/27/18 17:45) Rash codeine Adverse Reaction (Verified 04/27/18 17:45) Nausea Medications to take at Discharge Folic Acid 0.4 mg PO DAILY 08/27/13 Multivitamins,Therapeutic [Multivitamin] 1 tab PO DAILY 08/27/13 Glucosamine Sulfate Dipot Chlr [Glucosamine Relief] 1 tab PO BID 10/01/14 Marion-3/Dha/Epa/Fish Oil [Fish Oil 1,400 mg Softgel] 1 tab PO DAILY 10/03/14 Meloxicam [Mobic] 15 mg PO QODAY 10/01/15 Acetaminophen [Pain Relief Extra Strength] 500 mg PO DAILY 01/07/16 clopidogrel 75 mg tablet 75 mg PO DAILY #90 tab 10/19/17 isosorbide mononitrate ER 60 mg tablet,extended release 24 hr 60 mg PO QAM #90 tab 10/19/17 lisinopril 10 mg-hydrochlorothiazide 12.5 mg tablet 0.5 tab PO DAILY #90 tab 10/19/17 metoprolol succinate ER 25 mg tablet,extended release 24 hr 25 mg PO QDAY #90 tab 10/19/17 pravastatin 40 mg tablet 40 mg PO QHS #90 tab 10/19/17 pyridoxine (vitamin B6) 100 mg tablet 100 mg PO QDAY 01/18/18 fenofibrate nanocrystallized 145 mg tablet 145 mg PO QDAY #90 tab 01/21/18 sour reyes extract 1,000 mg capsule 1,000 mg PO DAILY 04/27/18 Amlodipine [Norvasc] 2.5 mg PO DAILY 10/05/18 Acetaminophen [Tylenol Extra Strength] 500 mg PO Q4H PRN PRN #20 tablet 10/12/18 Ibuprofen 600 mg PO Q6H PRN PRN #20 tablet 10/12/18 The following prescriptions were given: Acetaminophen [Tylenol Extra Strength] 500 mg PO Q4H PRN PRN #20 tablet PRN Reason: Pain Ibuprofen 600 mg PO Q6H PRN PRN #20 tablet PRN Reason: Pain Primary Care Physician: Elijah Tafoya MD [Primary Care Provider] - Test Results: Test results from this visit will be discussed in further detail at your follow-up appointment, if applicable. Please Follow Up With: Daljit Yu MD When: in 2 weeks, please call to make an appointment with xray 10/12/18 5121 <Electronically signed by Daljit Yu MD> Date Daljit Yu MD CC: Elijah Tafoya MD ABDOMEN SINGLE VIEW Observed: 09/15/2018 Status: F Source: GERARD 7:45 AM [facility] REPOSITORY [facility] Imaging Services [address] [place] [address] Abdomen Single View MR#: [id number] Acct: [id number] Name: BEATRICE SHORE Rep #: [id number] : 1945 M 72 From: Shyam Becker DO PCP: Elijah Tafoya MD Status: REG CLI Study: Abdomen Single View Date of Exam: 09/15/18 Exam# [id number] Ordering Dr: Daljit Yu MD STUDY: X-RAY - ABDOMEN/PELVIS REASON FOR EXAM: Male, 72 years old. History of kidney stones TECHNIQUE: Two AP supine views of the abdomen and pelvis. COMPARISON: 09/22/2017 FINDINGS: Normal visualized lung bases. There is an unremarkable bowel gas pattern. There is no demonstrated free abdominal air. There appears to be a left nephrolith measuring 9 mm. This appears grossly unchanged as compared to the most recent prior exam. Normal soft tissue structures. There are diffuse degenerative changes of the visualized lumbar spine. Left hip postsurgical changes RAD/Abdomen Single View IMPRESSION: Appearance of left nephrolithiasis Electronically Signed: Shyam Becker DO at 7:13 EST Tel , Service support , CC: Daljit Yu MD; Elijah Tafoya MD Environmental Studies Professor: Signed BMP Collected: 08/04/2018 Status: F Source: BAHAI 8:01 AM [facility] REPOSITORY TYPE CODE TESTS RESULT OUT OF RANGE REFERENCE UNITS LAB [id number](L 70-99 mg/dL OINC) High Glucose Lvl 103 LAB [id number](L 7-18 mg/dL OINC) High BUN 34 LAB [id number](LO 0.6-1.3 mg/dL INC) High Creatinine 1.6 LAB [id number](L 5.4-30.0 ratio OINC) Normal BUN/Creat Ratio 21.2 LAB [id number](L 8.4-10.2 mg/dL OINC) Calcium Normal Lvl 9.3 LAB [id number](L 136-145 mEq/L OINC) High Sodium Lvl 146 LAB [id number](L 3.5-5.1 mEq/L OINC) Normal Potassium Lvl 4.0 LAB [id number](L 98-107 mEq/L OINC) Chloride Normal 107 LAB [id number](L 24.0-30.0 mEq/L OINC) CO2 Normal 29.2 Performed By: #### [id number] #### JAMIR [employer] [address] [place] [address] EGFR Collected: 08/04/2018 Status: F Source: BAHAI 8:01 AM [facility] REPOSITORY Order Comment: Order added by Discern Expert. TYPE CODE TESTS RESULT OUT OF RANGE REFERENCE UNITS LAB [id number](LO mL/min/1.73 INC) m2 Normal eGFR 43 LAB 74519807(LO mL/min/1.73 INC) m2 Normal eGFR AA 52 Performed By: #### [id number] #### JAMIR [employer] [address] [place] [address] PROGRESS Observed: 07/21/2018 Status: COMPLETED Source: ROANN 11:57 AM [facility] REPOSITORY O ID: [id number] Author: Nicole Clayton Ct Service: (none) Author Type: (none) Type: Progress Notes Filed: 07/21/2018 11:57 AM Note Text: Radiology Service Progress Note PATIENT NAME: Beatrice Shore DATE OF SERVICE: July 21, 2018 TIME: 11:57 AM PATIENT IDENTITY VERIFICATION COMPLETED USING TWO (2) METHODS: Patient confirmed name verbally and Date of . PATIENT GENDER DATA: Male PATIENT RELEVANT IMPLANT DATA REVIEWED: Not Applicable CONTRAST INDUCED NEPHROPATHY RISK FACTORS: Patient age > 60 years CREATININE: Creatinine Date Value Ref Range Status 05/31/2018 1.63 (H) 0.73 - 1.22 mg/dL Final 05/15/2016 1.35 0.70 - 1.40 mg/dL Final Creatinine, Whole Blood (iSTAT) Date Value Ref Range Status 05/31/2017 1.30 0.70 - 1.40 mg/dL Final eGFR-All Other Races Date Value Ref Range Status 05/31/2018 42 . Final Comment: eGFR (Estimated GFR) Units of measure: mL/min/1.73 meters squared eGFR is derived from the reexpressed MDRD Study equation using the following parameters: serum creatinine, age, gender and race. The creatinine assay has been calibrated to be traceable to IDMS. An eGFR <60 mL/min/1.73m2 for >3 months is consistent with chronic kidney disease. Refer to KDOQI guidelines for clinical interpretation. In patients with unstable renal function, e.g. those with acute kidney injury, the eGFR may not accurately reflect actual GFR. eGFR- Date Value Ref Range Status 05/31/2018 51 Final P.O.C.T. RESULTS: POC done: Yes, See Lab Tab July 21, 2018 RADIOLOGIST NOTIFIED?: No ALLERGIES: Reviewed and unchanged CONTRAST ALLERGY: NO. PERIPHERAL IV ACCESS: Ambulatory: IV type: Existing peripheral IV utilized, Site assessment: Clean,Dry and Intact, Site disposition Discontinued pre-iv hydration in hemoc RADIOLOGY DEPARTMENT: CT; Exam(s) Completed: Abdomen/Pelvis SIGNED BY: Nicole Clayton Ct July 21, 2018 11:[address] ABD/PEL W IVCON Observed: 07/21/2018 Status: F Source: ROANN 11:55 AM [facility] REPOSITORY * * *Final Report* * * DATE OF EXAM: Jul 21 2018 11:55AM [facility] 0530 - CT ABD/PEL W IVCON / PROCEDURE REASON: multiple diagnoses * * * * Physician Interpretation * * * * EXAMINATION: CT ABDOMEN AND PELVIS WITH IV CONTRAST CLINICAL HISTORY: Colon cancer follow-up TECHNIQUE: CT of the abdomen and pelvis was performed using standard technique, scanning from just above the dome of the diaphragm to the symphysis pubis. MQ: CTAP_3 Contrast: IV: 150 ml of Omnipaque 300 Oral: 50 ml of 50ML Omnipaque [address] Radiation dose: Integrated Dose-length product (DLP) for this visit = 782 mGy*cm. CT Dose Reduction Employed: Automated exposure control (AEC) COMPARISON: 05/30/2018 RESULT: Liver: No mass. Biliary: No bile duct dilation. Cholelithiasis without findings of acute cholecystitis. Spleen: No mass. No splenomegaly. Pancreas: No mass or duct dilation. Adrenals: No mass. Kidneys: There are 2 nonobstructing LEFT renal calculi, largest 6 mm, unchanged. No RIGHT renal calculi. Stable small RIGHT lower pole cyst. No solid-appearing mass or hydronephrosis. GI tract: No dilation or wall thickening. No mass at the ileocolic anastomosis. Lymph nodes: No abdominal or pelvic lymphadenopathy. Mesentery/Peritoneum: No ascites or mass. Stable midline ventral hernia with a wide orifice, NOW containing a short segment of unobstructed small bowel, previously only fat. Retroperitoneum: No mass. Vasculature: Previously seen focal thrombus in the SMV is substantially smaller in the interval (3:60). The celiac axis and SMA are patent. The portal vein and branches, splenic vein, and hepatic veins are patent. Pelvis: Artifact from LEFT hip prosthesis degrades images of the lower pelvis. No mass, ascites or fluid collection. Enlarged prostate. No bladder wall thickening. Bones/Soft Tissues: Degenerative changes in the spine. No neoplastic bone disease. Lower thorax: The lower thorax is unremarkable. IMPRESSION: NO METASTATIC DISEASE IN THE ABDOMEN OR PELVIS NEAR COMPLETE RESOLUTION OF FOCAL SMV THROMBUS WITH ONLY A SMALL THROMBUS REMAINING CHOLELITHIASIS WITHOUT FINDINGS OF ACUTE CHOLECYSTITIS STABLE LEFT NONOBSTRUCTING RENAL CALCULI Environmental Studies Professor: PSCB Transcribe Date/Time: Jul 23 2018 11:09A Dictated by : PRASANNA MARTINEZ MD This examination was interpreted and the report reviewed and electronically signed by: PRASANNA MARTINEZ MD on Jul 23 2018 11:15AM EST [id number] CNCO Observed: 07/16/2018 Status: COMPLETED Source: ROANN 12:00 AM [facility] REPOSITORY Letter Text Justino Smith DO Hematology AND Medical Oncology/[address] [place] [address] [place], [place] [address] July 16, 2018 Beatrice Shore : 1945 To Whom It May Concern, This letter is to certify that Mr. Beatrice Shore is a patient under my care for a history of stage II colon cancer. On a surveillance CT scan done in May of this year, he was incidentally noted to have a superior mesenteric vein thrombosis. 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 Repeat CT CT scan of the abdomen and pelvis was ordered to assess potential propagation of the thrombus. Given his history of colon cancer and the recent incidental finding of mesenteric vein thrombosis, short interval follow-up was indicated. Please feel free to contact me at any time with any questions or concerns. Sincerely, Justino Smith, DO PROGRESS Observed: 06/02/2018 Status: COMPLETED Source: ROANN 7:59 AM [facility] REPOSITORY HNO ID: [id number] Author: Jaky Quiroga Service: (none) Author Type: Nurse Practitioner Type: Progress Notes Filed: 06/02/2018 8:12 AM Note Text: Chief Complaint Patient presents with: Established Patient HPI: Beatrice Shore is a 72 year old male who presents here today for follow up to discuss CT results. Per Dr. Smith's previous note: H/o?CAD?(Heart cath x2; no stents/CABG; medically managed previously with Plavix and ASA), OA?(was on Meloxicam for right knee pain), TIA?(10/2014; manifested by change in concentration and blurred vision) and sleep apnea. ?? Developed acute lower GI bleed in September 2015. Underwent colonoscopy 09/12/2015 and found to have suspicious appearing mass in the cecum--biopsy showed intramucosal carcinoma. ?? Baseline CEA=5.8 ng/mL. ?? Underwent hemicolectomy 10/07/2015. 4.6 cm well diff tumor with invasion through muscularis propria. No LVI No perineural invasion. 30 of 30 nodes negative. No evidence microsatellite instability by IHC. ? Had colonoscopy done 2016. Next due in 3 years. ? No complaints. ? Appetite:good ?Energy level:it's pretty good Denies fevers or recent illness. Resp:denies cough or sob Cardiac:denies chest pain/palpitations GI:denies abd pain, n/v, moving bowels regularly :denies dysuria/hematuria Extrem:occ. 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 Past medical history, appointments, medications, allergies reviewed. No changes. EXAM: BP 100/60 Pulse 60 Temp 36.8 ?C (98.2 ?F) Wt 109.8 kg (242 lb) BMI 32.82 kg/m? APPEARANCE Well appearing, alert, in no acute distress, well-hydrated, well nourished. HEART RRR with normal S1 and S2, no murmurs LUNG clear to auscultation LYMPH NODES No cervical lymphadenopathy, No supraclavicular lymphadenopathy and No axillary lymphadenopathy. ABDOMEN bowel sounds normoactive, no bruits, soft, non-tender, non-distended, without organomegaly or palpable masses EXTREMITIES No edema NEURO Awake, alert and oriented x 3, Normal gait and No involuntary motions. SKIN Skin color, texture, turgor normal, no suspicious rashes or lesions RADIOLOGY: CT abd/pelvis 05/31/18: IMPRESSION: NEW, NONOCCLUSIVE THROMBUS IN THE DISTAL (TOWARDS THE PANCREAS) SMV NO METASTATIC DISEASE LABS: Component Latest Ref Rng AND Units 05/15/2016 11/19/2016 06/07/2017 11/30/2017 05/30/2018 CEA 0.0 - 2.9 ng/mL 1.0 0.9 1.1 1.2 0.8 Component Latest Ref Rng AND Units 05/31/2018 Protein, Total 6.3 - 8.0 g/dL 6.9 Albumin 3.9 - 4.9 g/dL 4.0 Calcium 8.5 - 10.2 mg/dL 9.9 Bilirubin, Total 0.2 - 1.3 mg/dL 0.5 Alkaline Phosphatase 36 - 108 U/L 60 AST 14 - 40 U/L 28 Glucose 74 - 99 mg/dL 86 BUN 9 - 24 mg/dL 32 (H) Creatinine 0.73 - 1.22 mg/dL 1.63 (H) Sodium 136 - 144 mmol/L 139 Potassium 3.7 - 5.1 mmol/L 4.7 Chloride 97 - 105 mmol/L 103 CO2 22 - 30 mmol/L 25 Anion Gap 9 - 18 mmol/L 11 ALT 10 - 54 U/L 17 eGFR- 51 eGFR-All Other Races . 42 ASSESSMENT/PLAN: 1. 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 ? Per Dr. Smith's previous note: Did not recommend adjuvant chemotherapy based on stage and histologic features. ? ? - No concerning findings on exam. - Reviewed CT with Dr. Smith-? thrombus-at this time will repeat CT in one month. Pt. aware to call office with any new symptoms. - Reviewed CT and labs with pt. and spouse. - Colonoscopy due 2019. - CT abd/pelvis in one month-will need IV hydration prior. - Follow up pending CT in one month. - Pt. aware to call office with any questions/concerns. The patient indicates understanding of these issues and agrees with the plan. Jaky Quiroga APRN.ZAY CARDENAS Observed: 06/01/2018 Status: COMPLETED Source: ROANN 9:30 AM [facility] REPOSITORY Visit (SP) Office (GEORGE) BEATRICE SHORE ([id number]) 1945 M Date Time Provider Department 06/01/18 9:30 AM JAKY QUIROGA (ZAY) GEORGE During your visit today, we recorded the following information about you: Temperature Pulse Blood pressure Weight 98.2 degrees 60/minute 100/60 109.8 kg Lissa Victoria LPN, LETY 06/01/2018 10:18 AM Signed Est pt. Discuss recent lab and ct results 6 month f/u LETY Leo APRN.ZAY 06/02/2018 8:12 AM Signed Chief Complaint Patient presents with: Established Patient HPI: Beatrice Shore is a 72 year old male who presents here today for follow up to discuss CT results. Per Dr. Smith's previous note: H/o?CAD?(Heart cath x2; no stents/CABG; medically managed previously with Plavix and ASA), OA?(was on Meloxicam for right knee pain), TIA?(10/2014; manifested by change in concentration and blurred vision) and sleep apnea. ?? Developed acute lower GI bleed in September 2015. Underwent colonoscopy 09/12/2015 and found to have suspicious appearing mass in the cecum--biopsy showed intramucosal carcinoma. ?? Baseline CEA=5.8 ng/mL. ?? Underwent hemicolectomy 10/07/2015. 4.6 cm well diff tumor with invasion through muscularis propria. No LVI No perineural invasion. 30 of 30 nodes negative. No evidence microsatellite instability by IHC. ? Had colonoscopy done 2016. Next due in 3 years. ? No complaints. ? Appetite:good ?Energy level:it's pretty good Denies fevers or recent illness. Resp:denies cough or sob Cardiac:denies chest pain/palpitations GI:denies abd pain, n/v, moving bowels regularly :denies dysuria/hematuria Extrem:occ. 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 Past medical history, appointments, medications, allergies reviewed. No changes. EXAM: BP 100/60 Pulse 60 Temp 36.8 ?C (98.2 ?F) Wt 109.8 kg (242 lb) BMI 32.82 kg/m? APPEARANCE Well appearing, alert, in no acute distress, well- hydrated, well nourished. HEART RRR with normal S1 and S2, no murmurs LUNG clear to auscultation LYMPH NODES No cervical lymphadenopathy, No supraclavicular lymphadenopathy and No axillary lymphadenopathy. ABDOMEN bowel sounds normoactive, no bruits, soft, non-tender, non-distended, without organomegaly or palpable masses EXTREMITIES No edema NEURO Awake, alert and oriented x 3, Normal gait and No involuntary motions. SKIN Skin color, texture, turgor normal, no suspicious rashes or lesions RADIOLOGY: CT abd/pelvis 05/31/18: IMPRESSION: NEW, NONOCCLUSIVE THROMBUS IN THE DISTAL (TOWARDS THE PANCREAS) SMV NO METASTATIC DISEASE LABS: Component Latest Ref Rng AND Units 05/15/2016 11/19/2016 06/07/2017 11/30/2017 05/30/2018 CEA 0.0 - 2.9 ng/mL 1.0 0.9 1.1 1.2 0.8 Component Latest Ref Rng AND Units 05/31/2018 Protein, Total 6.3 - 8.0 g/dL 6.9 Albumin 3.9 - 4.9 g/dL 4.0 Calcium 8.5 - 10.2 mg/dL 9.9 Bilirubin, Total 0.2 - 1.3 mg/dL 0.5 Alkaline Phosphatase 36 - 108 U/L 60 AST 14 - 40 U/L 28 Glucose 74 - 99 mg/dL 86 BUN 9 - 24 mg/dL 32 (H) Creatinine 0.73 - 1.22 mg/dL 1.63 (H) Sodium 136 - 144 mmol/L 139 Potassium 3.7 - 5.1 mmol/L 4.7 Chloride 97 - 105 mmol/L 103 CO2 22 - 30 mmol/L 25 Anion Gap 9 - 18 mmol/L 11 ALT 10 - 54 U/L 17 eGFR- 51 eGFR-All Other Races . 42 ASSESSMENT/PLAN: 1. 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 ? Per Dr. Smith's previous note: Did not recommend adjuvant chemotherapy based on stage and histologic features. ? ? - No concerning findings on exam. - Reviewed CT with Dr. Smith-? thrombus-at this time will repeat CT in one month. Pt. aware to call office with any new symptoms. - Reviewed CT and labs with pt. and spouse. - Colonoscopy due 2019. - CT abd/pelvis in one month-will need IV hydration prior. - Follow up pending CT in one month. - Pt. aware to call office with any questions/concerns. The patient indicates understanding of these issues and agrees with the plan. 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 Discontinue saline lock post exam. If Pt. has a central line or IVAD, may access for administration according to line specific nursing protocol. Once exam is complete flush line and de-access according to line specific nursing protocol in the CT contrast administration guidelines link.Disp: 1 EachRfl: 0 enteric contrast (will be provided with radiology test)For CT CHESTABD/PEL W IVCON Routine order Administer, As Directed One Time Only, via Oral, Rectal, both Oral and Rectal, Enteric Tube, Stoma or Indwelling Catheter, Enteric Contrast as designated per enteric contrast guidelinesDisp: 1 EachRfl: 0 GERARD CREATININE [SQWCRET] Order #: [id number] FUTURE Follow-up and Disposition History Recorded Prescriptions as of 06/01/2018 Sig: CLOPIDOGREL 75 MG TABLET Take 75 mg by mouth once katerine* AMLODIPINE 5 MG TABLET Take 5 mg by mouth once daily. SOUR REYES EXTRACT 1,000 MG * Take 1 tablet by mouth once d* ISOSORBIDE MONONITRATE ER 60 * Take 60 mg by mouth once katerine* PRAVASTATIN 40 MG TABLET Take 40 mg by mouth once katerine* MELOXICAM 15 MG TABLET Take one tablet by mouth ever* METOPROLOL SUCCINATE ER 25 MG* Take 25 mg by mouth once katerine* DIPHENHYDRAMINE 25 MG-ACETAMI* Take 1 tablet by mouth at bed* PYRIDOXINE (VITAMIN B6) 100 M* Take 100 mg by mouth once suleiman* GLUCOSAMINE AND CHONDROIT SUL.N* Take 1 tablet by mouth twice * LISINOPRIL 10 MG-HYDROCHLOROT* Take 0.5 tablets by mouth onc* FOLIC ACID ORAL Take 400 mcg by mouth once da* OMEGA 3 FISH OIL ORAL Take 950 mg by mouth once suleiman* MULTIVITAMIN CAPSULE Take 1 capsule by mouth once * FENOFIBRATE NANOCRYSTALLIZED * 1 tablet once daily. IV CONTRAST (RADIOLOGY PROCED* CT Chest ABD/PEL-Inject, intr* ENTERIC CONTRAST (RADIOLOGY P* For CT CHESTABD/PEL W IVCON R* Problem List As Of Date 06/01/2018 Noted Resolved Colon polyp [K63.5] INVALID FOR* Rectal bleeding [K62.5] INVALID FOR* Left lower quadrant pain [R10.32] INVALID FOR* Transient cerebral ischemia [G45.9] INVALID FOR* ASCVD (arteriosclerotic cardiovascular disease)*INVALID FOR* Malignant neoplasm of ascending colon (HCC) [C1*INVALID FOR* Malignant neoplasm of colon (HCC) [C18.9] INVALID FOR* Visit Notes: >> Lissa Corona (Lety) LETY Victoria WedJun 01, 2018 10:07 AM Status: Signed Est pt. Discuss recent lab and ct results 6 month f/u Lissa Victoria LPN Encounter Status:Closed by JAKY QUIROGA CNP on 06/02/18 COMP METABOLIC PANEL Collected: 05/31/2018 Status: F Source: ROANN 12:00 PM [facility] REPOSITORY TYPE CODE TESTS RESULT OUT OF REFERENCE UNITS RANGE LAB TP 6.3-8.0 g/dL Protein, Total 6.9 LAB ALB 3.9-4.9 g/dL Albumin 4.0 LAB CA 8.5-10.2 mg/dL Calcium, Total 9.9 LAB TBIL 0.2-1.3 mg/dL Bilirubin, Total 0.5 LAB ALKP 36-108 U/L Alkaline Phosphatase 60 LAB AST 14-40 U/L AST 28 LAB GLU 74-99 mg/dL Glucose 86 Result Comment: The [place] [employer] (ADA) provides guidance for cutoff values for fasting glucose and random glucose. The ADA defines fasting as no caloric intake for at least 8 hours. Fas ting plasma glucose results between 100 to 125 mg/dL indicate increased risk for diabetes (prediabetes). Fasting plasma glucose results greater than or equal to 126 mg/dL meet the criteria for diagnosis of diabetes. In the absence of unequivocal hyperglycemia, results should be confirmed by repeat testing. In a patient with classic symptoms of hyperglycemia or hyperglycemic crisis, random plasma glucose results greater than or equal to 200 mg/dL meet the criteria for diagnosis of diabetes. Reference: Standards of Medical Care in Diabetes 2016, [place] [employer]. Diabetes Care. 2016.39(Suppl 1). LAB BUN 9-24 mg/dL BUN High 32 LAB CRET 0.73-1.22 mg/dL Creatinine High 1.63 LAB NA 136-144 mmol/L Sodium 139 LAB K 3.7-5.1 mmol/L Potassium 4.7 LAB CL 97-105 mmol/L Chloride 103 LAB CO2 22-30 mmol/L CO2 25 LAB AGAP 9-18 mmol/L Anion Gap 11 LAB ALT 10-54 U/L ALT 17 LAB GFRAA eGFR- Amer. 51 LAB GFRNAA . eGFR-All Other Races 42 Result Comment: eGFR (Estimated GFR) Units of measure: mL/min/1.73 meters squared eGFR is derived from the reexpressed MDRD Study equation using the following parameters: serum creatinine, age, gender and race. The creatinine assay has been calibrated to be traceable to IDMS. An eGFR <60 mL/min/1.73m2 for >3 months is consistent with chronic kidney disease. Refer to KDOQI guidelines for clinical interpretation. In patients with unstable renal function, e.g. those with acute kidney injury, the eGFR may not accurately reflect actual GFR. 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 Stage II with no high risk features. Surveillance TECHNIQUE: CT of the abdomen and pelvis was performed using standard technique, scanning from just above the dome of the diaphragm to the symphysis pubis. MQ: CTAP_3 Contrast: IV: 145 ml of Omnipaque 300 Oral: 50 ml of Omnipaque 240 in [address] Radiation dose: Integrated Dose-length product (DLP) for this visit = 942 mGy*cm. CT Dose Reduction Employed: Automated exposure control (AEC) COMPARISON: 05/31/2017 RESULT: There is a new, nearly occlusive thrombus in the SMV approximately 2.6 cm from the splenoportal confluence. No thrombus is present in the portal or splenic vein. Liver: No mass. Biliary: No bile duct dilation. New small gallstones Spleen: No mass. No splenomegaly. Pancreas: No mass or duct dilation. Adrenals: No mass. Kidneys: * Focal parenchymal loss upper pole RIGHT kidney likely old partial nephrectomy site versus prior ruptured cyst * Left-sided nephrolithiasis without hydronephrosis with largest stone measuring 6 mm * Subcentimeter, bilateral benign-appearing low-attenuation lesions; unchanged GI tract: Right hemicolectomy Lymph nodes: No abdominal or pelvic lymphadenopathy. Mesentery/Peritoneum: No ascites or mass. Retroperitoneum: No mass. Vasculature: * See above concerning portal venous system * Patent celiac axis and superior mesenteric artery Pelvis: No mass, ascites or fluid collection. Enlarged prostate Bones/Soft Tissues: No neoplastic bone disease Lower thorax: No nodules IMPRESSION: NEW, NONOCCLUSIVE THROMBUS IN THE DISTAL (TOWARDS THE PANCREAS) SMV NO METASTATIC DISEASE URGENT RESULTS: Communicated with Jaky Quiroga CNP on 05/31/2018 at 0834. Environmental Studies Professor: STANISLAV Transcribe Date/Time: May 31 2018 8:30A Dictated by : RONALDO UMANA MD This examination was interpreted and the report reviewed and electronically signed by: RONALDO UMANA MD on May 31 2018 8:40AM EST [id number] Observed: 05/30/2018 Status: COMPLETED Source: ROANN 3:25 PM [facility] REPOSITORY [facility] ID: [id number] Author: Nicole Martel Service: (none) Author Type: (none) Type: Progress Notes Filed: 05/30/2018 3:50 PM Note Text: Radiology Service Progress Note PATIENT NAME: Beatrice Shore DATE OF SERVICE: May 30, 2018 TIME: 3:25 PM PATIENT IDENTITY VERIFICATION COMPLETED USING TWO (2) METHODS: Patient confirmed name verbally and Date of . PATIENT GENDER DATA: Male PATIENT RELEVANT IMPLANT DATA REVIEWED: Not Applicable CONTRAST INDUCED NEPHROPATHY RISK FACTORS: Patient age > 60 years CREATININE: Creatinine Date Value Ref Range Status 05/15/2016 1.35 0.70 - 1.40 mg/dL Final Creatinine, Whole Blood (iSTAT) Date Value Ref Range Status 05/31/2017 1.30 0.70 - 1.40 mg/dL Final eGFR-All Other Races Date Value Ref Range Status 05/31/2017 55 . Final Comment: eGFR (Estimated GFR) Units of measure: mL/min/1.73 meters squared eGFR is derived from the reexpressed MDRD Study equation using the following parameters: serum creatinine, age, gender and race. The creatinine assay has been calibrated to be traceable to IDMS. An eGFR <60 mL/min/1.73m2 for >3 months is consistent with chronic kidney disease. Refer to KDOQI guidelines for clinical interpretation. In patients with unstable renal function, e.g. those with acute kidney injury, the eGFR may not accurately reflect actual GFR. eGFR- Date Value Ref Range Status 05/31/2017 >60 Final P.O.C.T. RESULTS: POC done: Yes, See Lab Tab May 30, 2018 RADIOLOGIST NOTIFIED?: No ALLERGIES: Reviewed and unchanged CONTRAST ALLERGY: NO. PERIPHERAL IV ACCESS: Ambulatory: IV type: A peripheral IV was started in the Right antecubital site with a Angio cath: 22 gauge., Site assessment: Clean,Dry and Intact, Site disposition Left in for next appointment .pt pt having post iv hydration in hemoc. [facility] RADIOLOGY DEPARTMENT: CT; Exam(s) Completed: Abdomen/Pelvis SIGNED BY: Nicole Clayton Ct May 30, 2018 3:25 PM [facility] CREATININE Collected: 05/30/2018 Status: F Source: ROANN 2:10 PM [facility] REPOSITORY TYPE CODE TESTS RESULT OUT OF REFERENCE UNITS RANGE LAB WCRET 0.7-1.4 mg/dL [place] High Creatinine 1.6 CEA Collected: 05/30/2018 Status: F Source: ROANN 2:10 PM [facility] REPOSITORY TYPE CODE TESTS RESULT OUT OF RANGE REFERENCE UNITS LAB CEA 0.0-2.9 ng/mL CEA 0.8 Result Comment: Test analyzed by the Aissatou DxI method. Performed By: #### CEA #### [facility] [address] [place], [place] [address] BMP Collected: 05/27/2018 Status: F Source: BAHAI 8:06 AM [facility] REPOSITORY TYPE CODE TESTS RESULT OUT OF RANGE REFERENCE UNITS LAB [id number](L 70-99 mg/dL OINC) High Glucose Lvl 104 LAB [id number](L 8.4-10.2 mg/dL OINC) Calcium Normal Lvl 9.6 LAB [id number](L 136-145 mEq/L OINC) Sodium Normal Lvl 142 LAB [id number](L 3.5-5.1 mEq/L OINC) Normal Potassium Lvl 3.8 LAB [id number](L 98-107 mEq/L OINC) Chloride Normal 105 LAB [id number](L 24.0-30.0 mEq/L OINC) CO2 Normal 30.0 LAB [id number](L 7-18 mg/dL OINC) High BUN 35 LAB [id number](LO 0.6-1.3 mg/dL INC) High Creatinine 1.7 LAB [id number](L 5.4-30.0 ratio OINC) Normal BUN/Creat Ratio 20.6 Performed By: #### [id number] #### [facility] [employer] [address] [place] [address] EGFR Collected: 05/27/2018 Status: F Source: BAHAI 8:06 AM [facility] REPOSITORY Order Comment: Order added by Discern Expert. TYPE CODE TESTS RESULT OUT OF RANGE REFERENCE UNITS LAB [id number](LO mL/min/1.73 INC) m2 Normal eGFR 40 LAB [id number](LO mL/min/1.73 INC) m2 Normal eGFR AA 48 Performed By: #### [id number] #### [facility] [employer] [facility] [place] [place] [id number] LIPID PROFILE Collected: 05/27/2018 Status: F Source: BAHAI 8:06 AM [facility] REPOSITORY TYPE CODE TESTS RESULT OUT OF RANGE REFERENCE UNITS LAB [id number](LO 50-200 mg/dL INC) Normal Chol 131 Result Comment: TOTAL CHOLEESTEROL: <200 NORMAL 200 - 239 BORDERLINE HIGH >240 HIGH LAB 30992618(LOINC) >=41 mg/dL Low HDL 35 LAB 97451753(LOINC) 0-130 mg/dL Normal LDL 73 Result Comment: <100 OPTIMAL 100-129 NEAR / ABOVE OPTIMAL 130-159 BORDERLINE HIGH 160-189 HIGH >190 VERY HIGH CALC LDL NOT VALID WHEN TRIGLYCERIDE IS >400 MG/DL LAB 55935184(LOINC) 35-150 mg/dL Normal Trig 114 Result Comment: <150 NORMAL 150-199 BORDERLINE HIGH 200-499 HIGH >500 VERY HIGH LAB [id number](LOINC) Normal VLDL 23 Performed By: #### [id number] #### [facility] [address] [place] [place] [id number] HGBA1C Collected: 05/27/2018 Status: F Source: BAHAI 8:06 AM [facility] REPOSITORY TYPE CODE TESTS RESULT OUT OF RANGE REFERENCE UNITS LAB [id number]( 4.0-6.3 % LOINC) Normal Hemoglobin A1c 5.8 Performed By: #### [id number] #### [facility] Chemistry Manual [address] [place] [address] CARDIOLOGY VISIT Observed: 05/03/2018 Status: F Source: [place] REPORT 11:18 AM [facility] REPOSITORY [facility] [address] [place] [address] OFFICE VISIT Date of Service: 04/26/18 MR#: [id number] Acct: [id number] Name: BEATRICE SHORE Rep #: [id number] : 1945 Provider: Ynes Rendon Age/Sex: 72/M Location: [facility] Status: Signed HPI HPI Details: BEATRICE SHORE, is a 72 M who presents to the office today for a cardiovascular follow-up. He has a history of coronary artery disease, hypertension, hyperlipidemia, TIAs and obstructive sleep apnea. He does use his CPAP. He has lost 8 lbs since he was last in to see us. He has adjusted his diet but did add fenofibrate. If he loses weight he would like to decrease his medication. From a cardiac standpoint, patient is doing well. He does not have any chest discomfort/heaviness/tightness. His exercise tolerance is stable for his age. Although it is limited because of pain in his hip. He does not have any worsening symptoms of shortness of breath. He denies any PND. He does not have any orthopnea. He does not have any symptoms of congestive heart failure. He does not have any palpitations that he is aware of. He does not have any lightheadedness or dizziness. He does not have any near-syncope or syncope. He does not have any lower extremity edema. He does not have any symptoms of claudication. Intake Vital Signs04/26/18 Height 5 ft 11 in 04/26/18 Weight: 243 lb 04/26/18 Body Mass Index (BMI) 33.9 04/26/18 Blood Pressure 100/62 Intake Visit Reasons: 3 M FU Safety Teacher Required: No Accompanied by: Is patient in pain?: No Allergies ranolazine [From Ranexa] Allergy (Verified 04/27/18 17:45) Unknown Sulfa (Sulfonamide Antibiotics) Allergy (Verified 04/27/18 17:45) Rash codeine Adverse Reaction (Verified 04/27/18 17:45) Nausea Medications Folic Acid 0.4 mg PO DAILY 08/27/13 [History Confirmed 04/27/18] Multivitamins,Therapeutic [Multivitamin] 1 tab PO DAILY 08/27/13 [History Confirmed 04/27/18] Glucosamine Sulfate Dipot Chlr [Glucosamine Relief] 1 tab PO BID 10/01/14 [History Confirmed 04/27/18] Marion-3/Dha/Epa/Fish Oil [Fish Oil 1,400 mg Softgel] 3 tab PO DAILY 10/03/14 [History Confirmed 04/27/18] Meloxicam [Mobic] 15 mg PO QODAY 10/01/15 [History Confirmed 04/27/18] Acetaminophen [Pain Relief Extra Strength] 500 mg PO DAILY 01/07/16 [History Confirmed 04/27/18] amlodipine 5 mg tablet 5 mg PO DAILY #90 tab 10/19/17 [Rx Confirmed 04/27/18] clopidogrel 75 mg tablet 75 mg PO DAILY #90 tab 10/19/17 [Rx Confirmed 04/27/18] isosorbide mononitrate ER 60 mg tablet,extended release 24 hr 60 mg PO QAM #90 tab 10/19/17 [Rx Confirmed 04/27/18] lisinopril 10 mg-hydrochlorothiazide 12.5 mg tablet 0.5 tab PO DAILY #90 tab 10/19/17 [Rx Confirmed 04/27/18] metoprolol succinate ER 25 mg tablet,extended release 24 hr 25 mg PO QDAY #90 tab 10/19/17 [Rx Confirmed 04/27/18] pravastatin 40 mg tablet 40 mg PO QHS #90 tab 10/19/17 [Rx Confirmed 04/27/18] pyridoxine (vitamin B6) 100 mg tablet 100 mg PO QDAY 01/18/18 [History Confirmed 04/27/18] fenofibrate nanocrystallized 145 mg tablet 145 mg PO QDAY #90 tab 01/21/18 [Rx Confirmed 04/27/18] sour reyes extract 1,000 mg capsule mg PO 04/27/18 [History Confirmed 04/27/18] Ejection fraction %: 55 to 59 PFSH Medical History Atherosclerotic heart disease of [place] coronary artery with other forms of angina pectoris (Chronic) Hypertension (Chronic) Transient ischemic attack (Chronic) WENDY (obstructive sleep apnea) (Chronic) Hyperlipidemia (Chronic) Essential hypertension (Chronic) Hypertriglyceridemia (Chronic) CAD (coronary artery disease) (Chronic) CKD (chronic kidney disease) stage 3, GFR 30-59 ml/min (Chronic) Arthritis (Acute) Heart disease (Acute) Hemorrhoids (Acute) History of CVA (cerebrovascular accident) (Acute) Knee pain (Acute) Shoulder pain (Acute) Stomach ulcer (Acute) hx of cancer (Acute) Surgical History History of colectomy (Resolved) History of left hip replacement (Resolved) History of lithotripsy (Resolved) Family History Father CAD (coronary artery disease) Mother CAD (coronary artery disease) Sister HLD (hyperlipidemia) TIA (transient ischemic attack) Social History Smoking Status: Never smoker alcohol intake: never substance use type: does not use caffeine: No what type of physical activity do you participate in: bicycling frequency: daily duration: 30-45 minutes/day seatbelt use: always do you feel safe at home: Yes ROS Const Const: Negative for weakness, fatigue, fever(s) or headache(s) Eyes Eyes: Negative for blind spots, loss of peripheral vision or transient loss of vision ENT ENT: Negative for headache(s) Cardio Chest Pain: No Palpitations: No Edema: None Muscle aches with walking: None Resp Respiratory: Negative for SOB with activity, SOB at rest, SOB orthopnea\SOB lying down or Cough GI GI: Negative nausea, vomiting, heartburn or vomiting blood/hematemesis : Negative for hematuria Musc Musc: Negative for muscle aches/ myalgia Neuro Neuro: Negative for weakness or headache(s) Bladimir Hematologic/Lymphatic: Negative for easy bleeding Endo Endo: Negative for fatigue Cardiology Exam Const Appearance: cooperative, no acute distress and well developed Orientation: alert, awake and oriented x3 Head Head: normocephalic and atraumatic Mouth: moist mucous membranes Eyes General: appearance normal, both eyes and all related structures Conjunctivae: conjunctivae normal Pupils: PERRL EOM: EOM intact bilaterally Neck Neck: normal visual inspection, no lymphadenopathy and no JVD Carotids: Negative bruit Neck Mass: Negative Neck mass Chest Chest inspection: normal inspection of the chest and symmetric chest movement Auscultation: Bilateral: Clear to Auscultation Cardio Palpation: normal PMI Rate: regular rate Rhythm: regular rhythm Heart sounds: S1 normal and S2 normal; negative rub, gallop or murmur GI GI: normal to inspection, soft, no hepatosplenomegaly and bowel sounds present; negative tender Neuro General: alert, awake, oriented x3, CN's II-XI intact bilaterally and moves all extremities Extremities Pulses: Normal: Right Posterior Tibial Pulse, Left Posterior Tibial Pulse, Right Radial Pulse, Left Radial Pulse Lower Extremity Edema: None: Bilateral Psych Psychological: normal affect Supplemental Info Diagnostic heart catheterization in 2016 demonstrated left main with mild disease, LAD moderate stenosis noted in mid segment with no high-grade stenosis, left circumflex distal subtotal occlusion with left to left collaterals, RCA large enteric with no high-grade stenosis with a preserved ejection fraction. Medical therapy was recommended. Assessment AND Plan 1. CAD (coronary artery disease) I25.10 Plan - FLORESITA Gal[place] Stable, from a cardiac standpoint patient does not have any symptoms of angina. We recommend that they continue with current aggressive medical management and risk factor modification. 2. Essential hypertension I10 Plan - FLORESITA Galicia Blood pressure is well controlled on current medications, we do not recommend any changes at this time. 3. Pure hypercholesterolemia E78.00 Plan - FLORESITA Galicia Recent lipid profile demonstrates total cholesterol of 125, HDL 34, LDL 64. Triglycerides have improved with the addition of fenofibrate to 137. Did talk about dietary modifications. He will continue with current medical management. 4. WENDY (obstructive sleep apnea) G47.33 Kasi - FLORESITA Galicia Patient will continue use his CPAP. Plan Detail Additional Comments - FLORESITA Gal[place] Patient would like to discontinue any medications if possible. Did discuss with him about lifestyle modifications. If he continues to lose weight we will consider further adjusting blood pressure medications. For now will not make any adjustments. The above patient was discussed with Dr. Andujar, he agrees with plan of care. Thank you for allowing us to participate in patient's plan of care, if you have any questions please do not hesitate to call. This note was generated using a voice recognition system and there may be incorrect words, spelling or punctuation errors that were not noted when reviewing the office note prior to saving. 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 transplanted heart: [place] heart Associated angina: without angina Essential hypertension I10 Pure hypercholesterolemia E78.00 Hyperlipidemia type: pure hypercholesterolemia WENDY (obstructive sleep apnea) G47.33 Coding Level of Care Code Off vis,est,level 3 Diagnoses CAD (coronary artery disease) I25.10 Coronary Disease-Associated Artery/Lesion type: [place] artery [place] vs. transplanted heart: [place] heart Associated angina: without angina Essential hypertension I10 Pure hypercholesterolemia E78.00 Hyperlipidemia type: pure hypercholesterolemia WENDY (obstructive sleep apnea) G47.33 04/28/18 1534 <Electronically signed by Ynes Rendon PA> Date Ynes CANAS 05/03/18 1118<Electronically signed by Austen Andujar MD> Cosigner Signature: Date (if applicable) Austen Andujar MD CC: Elijah Tafoya MD URGENT CARE VISIT Observed: 04/28/2018 Status: F Source: [place] REPORT 6:[address] [address] OFFICE VISIT Date of Service: 04/27/18 MR#: [id number] Acct: [id number] Name: BEATRICE SHORE Rep #: [id number] : 1945 Provider: Ridge CANAS Age/Sex: 72/M Location: [facility] [place] Status: Signed Intake Vital Signs04/27/18 Height 6 ft 0.5 in Intake Visit Reasons: ear/jaw pain Chief Complaint: Earache Allergies ranolazine [From Ranexa] Allergy (Verified 04/27/18 17:45) Unknown Sulfa (Sulfonamide Antibiotics) Allergy (Verified 04/27/18 17:45) Rash codeine Adverse Reaction (Verified 04/27/18 17:45) Nausea Medications Folic Acid 0.4 mg PO DAILY 08/27/13 [History Confirmed 04/27/18] Multivitamins,Therapeutic [Multivitamin] 1 tab PO DAILY 08/27/13 [History Confirmed 04/27/18] Glucosamine Sulfate Dipot Chlr [Glucosamine Relief] 1 tab PO BID 10/01/14 [History Confirmed 04/27/18] Marion-3/Dha/Epa/Fish Oil [Fish Oil 1,400 mg Softgel] 3 tab PO DAILY 10/03/14 [History Confirmed 04/27/18] Meloxicam [Mobic] 15 mg PO QODAY 10/01/15 [History Confirmed 04/27/18] Acetaminophen [Pain Relief Extra Strength] 500 mg PO DAILY 01/07/16 [History Confirmed 04/27/18] amlodipine 5 mg tablet 5 mg PO DAILY #90 tab 10/19/17 [Rx Confirmed 04/27/18] clopidogrel 75 mg tablet 75 mg PO DAILY #90 tab 10/19/17 [Rx Confirmed 04/27/18] isosorbide mononitrate ER 60 mg tablet,extended release 24 hr 60 mg PO QAM #90 tab 10/19/17 [Rx Confirmed 04/27/18] lisinopril 10 mg-hydrochlorothiazide 12.5 mg tablet 0.5 tab PO DAILY #90 tab 10/19/17 [Rx Confirmed 04/27/18] metoprolol succinate ER 25 mg tablet,extended release 24 hr 25 mg PO QDAY #90 tab 10/19/17 [Rx Confirmed 04/27/18] pravastatin 40 mg tablet 40 mg PO QHS #90 tab 10/19/17 [Rx Confirmed 04/27/18] pyridoxine (vitamin B6) 100 mg tablet 100 mg PO QDAY 01/18/18 [History Confirmed 04/27/18] fenofibrate nanocrystallized 145 mg tablet 145 mg PO QDAY #90 tab 01/21/18 [Rx Confirmed 04/27/18] sour reyes extract 1,000 mg capsule mg PO 04/27/18 [History Confirmed 04/27/18] PFSH Medical History Atherosclerotic heart disease of [place] coronary artery with other forms of angina pectoris (Chronic) Hypertension (Chronic) Transient ischemic attack (Chronic) WENDY (obstructive sleep apnea) (Chronic) Hyperlipidemia (Chronic) Essential hypertension (Chronic) Hypertriglyceridemia (Chronic) CAD (coronary artery disease) (Chronic) CKD (chronic kidney disease) stage 3, GFR 30-59 ml/min (Chronic) Arthritis (Acute) Heart disease (Acute) Hemorrhoids (Acute) History of CVA (cerebrovascular accident) (Acute) Knee pain (Acute) Shoulder pain (Acute) Stomach ulcer (Acute) hx of cancer (Acute) Surgical History History of colectomy (Resolved) History of left hip replacement (Resolved) History of lithotripsy (Resolved) Family History Father CAD (coronary artery disease) Mother CAD (coronary artery disease) Sister HLD (hyperlipidemia) TIA (transient ischemic attack) Social History Smoking Status: Never smoker alcohol intake: never substance use type: does not use caffeine: No what type of physical activity do you participate in: bicycling frequency: daily duration: 30-45 minutes/day seatbelt use: always do you feel safe at home: Yes HPI HPI Chief Complaint: Earache Details: BEATRICE SHORE, is a 72 M who presents to the office today for initial evaluation earache to left ear times approximately 2 hours. Patient noted a couple hours prior to arrival to the [facility], he developed acute onset mild/moderate aching left ear pain. He notes no associated changes in hearing or lightheadedness or dizziness or nausea/vomiting. He notes no associated chest pain shortness of breath dyspnea on exertion syncope or near syncope. He notes no other associated symptoms and no other alleviating or aggravating factors. ROS Const Constitutional: No excessive sweating, chills, fever(s), night sweats or body ache Eyes Eyes: No change in vision ENT ENT: Positive for ear pain; no abnormal hearing, ear discharge, ear pressure, hearing loss, post nasal drip, sinus pressure or sore throat Resp Respiratory: No cough, chest congestion or shortness of breath Cardio Cardiology: No excessive sweating, chest pain at rest, chest pain with exertion, shortness of breath, dyspnea on exertion, irregular heart rhythm, generalized swelling or leg pain with exertion Gastro GI: No abdominal pain, nausea/dyspepsia or vomiting Musc Musculoskeletal: No joint pain, back pain or limited range of motion Skin Skin: No rash Neuro Neurology: No abnormal hearing, abnormal speech or abnormal movements Endo Endocrine: No excessive sweating Exam Const General: cooperative, healthy appearing, no acute distress, comfortable Nutritional Appearance: average body habitus Orientation: alert, awake, oriented x3 HENMT Head: normal to inspection Ears: hearing grossly normal bilaterally, external ears normal, TM's normal bilaterally, EAC's normal Nose: external nose normal, nares normal, septum normal, no nasal discharge Face and sinus: normal facial exam, face symmetric, sinuses nontender Mouth: oral mucosae normal, lip normal, oropharynx normal, tongue normal Teeth and gingiva: gingiva normal, dentition normal Throat: posterior oropharynx normal, tonsils normal, uvula midline Eyes General: appearance normal, both eyes and all related structures Neck Neck: normal visual inspection, full ROM, no lymphadenopathy, no meningeal signs, supple Neck mass: No Thyroid: thyroid normal Lymphatic: no lymphadenopathy noted Chest Chest palpation AND inspection: normal inspection of the chest Resp Effort AND Inspection: normal respiratory effort, able to speak in complete sentences, symmetric chest movement, no cough Auscultation: Bilateral: Clear to Auscultation Cardio Palpation: normal PMI Rate: regular rate Rhythm: regular rhythm Heart Sounds: S1 normal, S2 normal, no gallops, no murmurs, no rubs Pulses: radial pulses present GI Inspection: normal to inspection Palpation: soft Skin General: no rashes or lesions noted Neuro General: alert, awake, oriented x3, gait normal Cognition: normal cognition Speech: speech normal Gait: normal gait Motor: muscle tone normal throughout Sensory Exam: no sensory deficits noted Psych Appearance: grossly normal Mental Status: mental status grossly normal Mood: congruent mood Affect: normal affect Speech and Movement: speech and movement normal Attitude: cooperative Thought Process: normal Thought Content: normal Judgment: judgment good Assessment AND Plan Problems 1. Earache on left H92.02 Plan Tylenol as needed for symptomatic relief. She had acute onset dizziness develop patient may try [id number] meclizine but is strongly encouraged to also follow-up with PCP should her dizziness develop. Otherwise patient to follow-up with PCP in 5-7 days should left earache not improve, sooner should symptoms worsen or any other concerns develop. Patient states acknowledging understanding all the above. This note was generated with adicate timeadsation software. It may contain incorrect words, spelling, and punctuation that were not noted in checking the note before signing. Coding Level of Care Code Off vis,est,level 3 Diagnoses Earache on left H92.02 04/28/18 0630 <Electronically signed by Ridge CANAS> Date Ridge CANAS Cosigner Signature: Date (if applicable) CC: LIVER PROFILE Collected: 03/10/2018 Status: F Source: [place] 7:35 AM [facility] REPOSITORY TYPE CODE TESTS RESULT OUT OF RANGE REFERENCE UNITS LAB L501.1500 6.4-8.2 g/dL Normal T PROT 7.5 LAB L501.1800 3.2-5.0 g/dL Normal ALB 3.7 LAB L501.1950 2.2-4.2 g/dL Normal GLOB 3.8 LAB L501.4100 15-37 U/L Normal AST 26 LAB L501.4305 45-117 U/L Normal ALK P 79 LAB L501.4405 16-61 U/L Normal ALT 29 LAB L501.4600 0.20-1.00 mg/dL Normal T BILI 1.00 LAB L501.4700 0.00-0.30 mg/dL Normal D BILI 0.23 Performed By: #### L500.3400, L500.4100 #### [facility] [place], [address] LIPID PROFILE Collected: 03/10/2018 Status: F Source: [place] 7:35 AM [facility] REPOSITORY TYPE CODE TESTS RESULT OUT OF RANGE REFERENCE UNITS LAB L501.4900 200 mg/dL Normal CHOL 125 Result Comment: <200 mg/dL Desirable 200-240 mg/dL Borderline >240 mg/dL High Risk LAB L501.5000 mg/dL Normal TRIG 137 Result Comment: The drugs N-Acetylcysteine and Metamizole may falsely depress this assay. Serum Triglycerides Reference Interval Normal <150 mg/dL Borderline high 150 - 199 mg/dL High 200 - 499 mg/dL Very High > or = 500 mg/dL LAB L501.6400 mg/dL Low HDL 34 Result Comment: The drugs N-Acetylcysteine and Metamizole may falsely depress this assay. Reference Range HDL <40 mg/dL Low HDL Cholesterol HDL >or= 60 mg/dL High HDL Cholesterol LAB L501.6500 0-130 mg/dL Normal LDL 64 LAB L501.6600 5-40 mg/dL Normal VLDL 27 Performed By: #### L500.3400, L500.4100 #### [facility] [address] [place], [address] CARDIOLOGY VISIT Observed: 01/21/2018 Status: F Source: [place] REPORT 1:04 PM [facility] REPOSITORY [facility] [address] [place] [address] OFFICE VISIT Date of Service: 01/21/18 MR#: [id number] Acct: [id number] Name: BEATRICE SHORE Rep #: [id number] : 1945 Provider: Ynes Rendon Age/Sex: 72/M Location: [facility] [place] Status: Signed HPI [facility] Details: BEATRICE SHORE, is a 72 M who presents to the office today for a cardiovascular follow-up. He has a history of coronary artery disease, hypertension, hyperlipidemia, TIAs and obstructive sleep apnea. He was in last month there was concerns over his elevated triglycerides. He was going to try to monitor his diet to see if this can be adjusted. Unfortunately it is higher. From a cardiac standpoint, patient is doing well. He does not have any chest discomfort/heaviness/tightness. His exercise tolerance is stable for his age. Although it is limited because of pain in his hip. He does not have any worsening symptoms of shortness of breath. He denies any PND. He does not have any orthopnea. He does not have any symptoms of congestive heart failure. He does not have any palpitations that he is aware of. He does not have any lightheadedness or dizziness. He does not have any near-syncope or syncope. He does not have any lower extremity edema. He does not have any symptoms of claudication. Intake Vital Signs01/21/18 Height 5 ft 11 in 01/21/18 Weight: 251 lb 01/21/18 Body Mass Index (BMI) 34.9 01/21/18 Blood Pressure 112/70 01/21/18 Blood Pressure Location Lt brachial Intake Visit Reasons: 3 M Safety Teacher Required: No Accompanied by: Is patient in pain?: Yes (left hip discomfort, constant ache) Pain scale (1-10): 1 Allergies ranolazine [From Ranexa] Allergy (Verified 01/21/18 11:21) Unknown Sulfa (Sulfonamide Antibiotics) Allergy (Verified 01/21/18 11:21) Rash codeine Adverse Reaction (Verified 01/21/18 11:21) Nausea Medications Folic Acid 0.4 mg PO DAILY 08/27/13 [History Confirmed 01/21/18] Multivitamins,Therapeutic [Multivitamin] 1 tab PO DAILY 08/27/13 [History Confirmed 01/21/18] Glucosamine Sulfate Dipot Chlr [Glucosamine Relief] 1 tab PO BID 10/01/14 [History Confirmed 01/21/18] Marion-3/Dha/Epa/Fish Oil [Fish Oil 1,400 mg Softgel] 3 tab PO DAILY 10/03/14 [History Confirmed 01/21/18] Meloxicam [Mobic] 15 mg PO QODAY 10/01/15 [History Confirmed 01/21/18] Acetaminophen [Pain Relief Extra Strength] 500 mg PO DAILY 01/07/16 [History Confirmed 01/21/18] amlodipine 5 mg tablet 5 mg PO DAILY #90 tab 10/19/17 [Rx Confirmed 01/21/18] clopidogrel 75 mg tablet 75 mg PO DAILY #90 tab 10/19/17 [Rx Confirmed 01/21/18] isosorbide mononitrate ER 60 mg tablet,extended release 24 hr 60 mg PO QAM #90 tab 10/19/17 [Rx Confirmed 01/21/18] lisinopril 10 mg-hydrochlorothiazide 12.5 mg tablet 0.5 tab PO DAILY #90 tab 10/19/17 [Rx Confirmed 01/21/18] metoprolol succinate ER 25 mg tablet,extended release 24 hr 25 mg PO QDAY #90 tab 10/19/17 [Rx Confirmed 01/21/18] pravastatin 40 mg tablet 40 mg PO QHS #90 tab 10/19/17 [Rx Confirmed 01/21/18] pyridoxine (vitamin B6) 100 mg tablet 100 mg PO QDAY 01/18/18 [History Confirmed 01/21/18] fenofibrate nanocrystallized 145 mg tablet 145 mg PO QDAY #90 tab 01/21/18 [Rx Confirmed 01/21/18] Ejection fraction %: 55 to 59 [facility] Medical History Atherosclerotic heart disease of [place] coronary artery with other forms of angina pectoris (Chronic) Hypertension (Chronic) Transient ischemic attack (Chronic) WENDY (obstructive sleep apnea) (Chronic) Hyperlipidemia (Chronic) Essential hypertension (Chronic) Hypertriglyceridemia (Chronic) CAD (coronary artery disease) (Chronic) CKD (chronic kidney disease) stage 3, GFR 30-59 ml/min (Chronic) Surgical History History of colectomy (Resolved) History of left hip replacement (Resolved) History of lithotripsy (Resolved) Family History Father CAD (coronary artery disease) Mother CAD (coronary artery disease) Sister HLD (hyperlipidemia) TIA (transient ischemic attack) Social History Smoking Status: Never smoker alcohol intake: never substance use type: does not use caffeine: No what type of physical activity do you participate in: bicycling frequency: daily duration: 30-45 minutes/day seatbelt use: always do you feel safe at home: Yes ROS Const Const: Negative for weakness, fatigue, fever(s) or headache(s) Eyes Eyes: Negative for blind spots, loss of peripheral vision or transient loss of vision ENT ENT: Negative for headache(s), dizziness, tinnitus or Nosebleed/epistaxis Cardio Chest Pain: No Palpitations: No Edema: None Muscle aches with walking: None Resp Respiratory: Negative for SOB with activity, SOB at rest, SOB orthopnea\SOB lying down or Cough GI GI: Negative nausea, vomiting, heartburn or vomiting blood/hematemesis : Negative for hematuria Musc Musc: Negative for muscle aches/ myalgia Neuro Neuro: Negative for weakness, headache(s), dizziness, near syncope, syncope, lightheadedness or orthostatic symptoms Bladimir Hematologic/Lymphatic: Negative for easy bleeding Endo Endo: Negative for fatigue Cardiology Exam Const Appearance: cooperative, no acute distress and well developed Orientation: alert, awake and oriented x3 Head Head: normocephalic and atraumatic Mouth: moist mucous membranes Eyes General: appearance normal, both eyes and all related structures Conjunctivae: conjunctivae normal Pupils: PERRL EOM: EOM intact bilaterally Neck Neck: normal visual inspection, no lymphadenopathy and no JVD Carotids: Negative bruit Neck Mass: Negative Neck mass Chest Chest inspection: normal inspection of the chest and symmetric chest movement Auscultation: Bilateral: Clear to Auscultation Cardio Palpation: normal PMI Rate: regular rate Rhythm: regular rhythm Heart sounds: S1 normal and S2 normal; negative rub, gallop or murmur GI GI: normal to inspection, soft, no hepatosplenomegaly and bowel sounds present; negative tender Neuro General: alert, awake, oriented x3, CN's II-XI intact bilaterally and moves all extremities Extremities Pulses: Normal: Right Posterior Tibial Pulse, Left Posterior Tibial Pulse, Right Radial Pulse, Left Radial Pulse Lower Extremity Edema: None: Bilateral Psych Psychological: normal affect Supplemental Info Diagnostic heart catheterization in 2016 demonstrated left main with mild disease, LAD moderate stenosis noted in mid segment with no high-grade stenosis, left circumflex distal subtotal occlusion with left to left collaterals, RCA large enteric with no high-grade stenosis with a preserved ejection fraction. Medical therapy was recommended. Assessment AND Plan 1. CAD (coronary artery disease) I25.10 FLORESITA Benito Stable, from a cardiac standpoint patient does not have any symptoms of angina. We recommend that they continue with current aggressive medical management and risk factor modification. 2. Essential hypertension I10 FLORESITA Benito Blood pressure is well controlled on current medications, we do not recommend any changes at this time. 3. Pure hypercholesterolemia E78.00; E78.0 Plan - FLORESITA Galicia Recent lipid profile demonstrates total cholesterol of 147 with an elevated triglyceride of 779. HDL is 21. Will start patient on fenofibrate. Did again discuss dietary and lifestyle modifications for patient. Will repeat his lipids in 3 months. Plan Detail Other Orders Orders: Other Medications New: fenofibrate nanocrystallized swallow whole; do not chew/break/dissolve/145 mg PO QDAY open Additional Comments - FLORESITA Galicia The above patient was discussed with Dr. Andujar, he agrees with plan of care. Thank you for allowing us to participate in patient's plan of care, if you have any questions please do not hesitate to call. This note was generated using a voice recognition system and there may be incorrect words, spelling or punctuation errors that were not noted when reviewing the office note prior to saving. Follow Up 3 Months (MMM) Coding Level of Care Code Off vis,est,level 3 Diagnoses CAD (coronary artery disease) I25.10 Coronary Disease-Associated Artery/Lesion type: [place] artery [place] vs. transplanted heart: [place] heart Associated angina: without angina Essential hypertension I10 Pure hypercholesterolemia E78.00; E78.0 Hyperlipidemia type: pure hypercholesterolemia Coding Level of Care Code Off vis,est,level 3 Diagnoses CAD (coronary artery disease) I25.10 Coronary Disease-Associated Artery/Lesion type: [place] artery [place] vs. transplanted heart: [place] heart Associated angina: without angina Essential hypertension I10 Pure hypercholesterolemia E78.00; E78.0 Hyperlipidemia type: pure hypercholesterolemia 01/21/18 1213 <Electronically signed by Ynes CANAS> Date Ynes CANAS 01/21/18 1303<Electronically signed by Austen Andujar MD> Cosigner Signature: Date (if applicable) Austen Andujar MD CC: ELIJAH TAFOYA BASIC METABOLIC Collected: 01/17/2018 Status: F Source: [place] PROFILE (BMP) 6:20 AM [facility] REPOSITORY TYPE CODE TESTS RESULT OUT OF RANGE REFERENCE UNITS LAB L501.0100 74-106 mg/dL High GLU 107 Result Comment: Fasting Glucose result from 100 to 125 mg/dL suggests IMPAIRED HOMEOSTASIS per A.D.A. criteria. Please note revised GLUCOSE reference range effective 2017. LAB L501.1000 7-18 mg/dL High BUN 25 LAB L501.1100 0.70-1.30 mg/dL High CREAT,SERUM 1.35 Result Comment: The validity of the calculated GFR AND GFRAA in patients over 70 years has not been determined. Clinical correlation is essential. LAB L501.1110 >60 mL/min Low EST GFR 55 Result Comment: Non- GFR Calc LAB L501.1115 >60 mL/min Normal EST GFR - AA 67 Result Comment: GFR Calc LAB L501.1300 10-20 RATIO Normal BUN/CRE 18.5 LAB L501.2200 8.5-10.1 mg/dL CA Normal 8.7 LAB L501.5300 136-145 mmol/L NA Normal 142 LAB L501.5600 3.5-5.1 mmol/L K Normal 4.5 Result Comment: Slight Hemolysis, Result may be falsely increased. LAB L501.5900 98-107 mmol/L Normal CL 106 LAB L501.6100 21.0-32.0 mmol/L Normal CO2 30.0 LAB L501.6200 5-15 Normal 6 GAP Performed By: #### L500.2500, L500.3400, L500.4100, L501.9310, L501.9520 #### [facility] [address] [place], [address] LIVER PROFILE Collected: 01/17/2018 Status: F Source: [place] 6:20 AM [facility] REPOSITORY TYPE CODE TESTS RESULT OUT OF RANGE REFERENCE UNITS LAB L501.1500 6.4-8.2 g/dL Normal T PROT 7.3 LAB L501.1800 3.2-5.0 g/dL Normal ALB 3.5 LAB L501.1950 2.2-4.2 g/dL Normal GLOB 3.8 LAB L501.4100 15-37 U/L High AST 39 Result Comment: Slight Hemolysis, Result may be falsely increased. LAB L501.4305 45-117 U/L Normal ALK P 102 LAB L501.4405 16-61 U/L Normal ALT 40 Result Comment: Please note revised ALT reference range effective 2017. LAB L501.4600 0.20-1.00 mg/dL Normal T BILI 0.70 LAB L501.4700 0.00-0.30 mg/dL Normal D BILI 0.08 Performed By: #### L500.2500, L500.3400, L500.4100, L501.9310, L501.9520 #### [facility] [address] [place], [place], [id number] LIPID PROFILE Collected: 01/17/2018 Status: F Source: [place] 6:20 AM [facility] REPOSITORY TYPE CODE TESTS RESULT OUT OF RANGE REFERENCE UNITS LAB L501.4900 200 mg/dL Normal CHOL 147 Result Comment: <200 mg/dL Desirable 200-240 mg/dL Borderline >240 mg/dL High Risk LAB L501.5000 mg/dL High TRIG 779 Result Comment: The drugs N-Acetylcysteine and Metamizole may falsely depress this assay. TRIGLYCERIDE IS GREATER THAN 400 mg/dL. LDL RESULT IS INVALID AND WILL NOT BE REPORTED. Serum Triglycerides Reference Interval Normal <150 mg/dL Borderline high 150 - 199 mg/dL High 200 - 499 mg/dL Very High > or = 500 mg/dL LAB L501.6400 mg/dL Low HDL 21 Result Comment: The drugs N-Acetylcysteine and Metamizole may falsely depress this assay. Reference Range HDL <40 mg/dL Low HDL Cholesterol HDL >or= 60 mg/dL High HDL Cholesterol LAB L501.6500 0-130 mg/dL Test Normal not performed LDL LAB L501.6600 5-40 mg/dL Test Normal not performed VLDL Performed By: #### L500.2500, L500.3400, L500.4100, L501.9310, L501.9520 #### [facility] [address] [place], [address] T4 TOTAL, THYROXIN Collected: 01/17/2018 Status: F Source: [place] 6:20 AM [facility] REPOSITORY TYPE CODE TESTS RESULT OUT OF RANGE REFERENCE UNITS LAB L501.9310 4.5-12.1 ug/dL T4 Normal THYROXIN 7.4 Performed By: #### L500.2500, L500.3400, L500.4100, L501.9310, L501.9520 #### [facility] [address] [place], [address] THYROID STIM HORMONE Collected: 01/17/2018 Status: F Source: [place] (TSH) 6:20 AM [facility] REPOSITORY TYPE CODE TESTS RESULT OUT OF RANGE REFERENCE UNITS LAB L501.9520 0.358-3.74 uIU/mL Normal TSH 2.40 Performed By: #### L500.2500, L500.3400, L500.4100, L501.9310, L501.9520 #### [facility] [address] [place], [address] PROGRESS Observed: 12/08/2017 Status: COMPLETED Source: ROANN 9:03 AM [facility] REPOSITORY HNO ID: [id number] Author: Jaky Quiroga Service: (none) Author Type: Nurse Practitioner Type: Progress Notes Filed: 12/08/2017 9:48 AM Note Text: Chief Complaint Patient presents with: Established Patient HPI: Beatrice Shore is a 72 year old male who presents here today for follow up colon cancer. Per Dr. Smith's previous note: H/o CAD?(Heart cath x2; no stents/CABG; medically managed previously with Plavix and ASA), OA?(was on Meloxicam for right knee pain), TIA?(10/2014; manifested by change in concentration and blurred vision) and sleep apnea. ?? Developed acute lower GI bleed in September 2015. Underwent colonoscopy 09/12/2015 and found to have suspicious appearing mass in the cecum--biopsy showed intramucosal carcinoma. ?? Baseline CEA=5.8 ng/mL. ?? Underwent hemicolectomy 10/07/2015. 4.6 cm well diff tumor with invasion through muscularis propria. No LVI No perineural invasion. 30 of 30 nodes negative. No evidence microsatellite instability by IHC. ? No complaints. Had colonoscopy done 2016. Next due in 3 years. ? Appetite:good Energy level:most of the time it's good Denies fevers or recent illness. Resp:denies cough or sob Cardiac:denies chest pain/palpitations GI:denies abd pain, n/v, moving bowels regularly :denies dysuria/hematuria Extrem:occ. 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 Past medical history, appointments, medications, allergies reviewed. No changes. EXAM: BP 114/67 Pulse (!) 57 Temp 36.3 ?C (97.4 ?F) Wt 114.3 kg (252 lb) BMI 34.18 kg/m2 APPEARANCE Well appearing, alert, in no acute distress, well-hydrated, well nourished. HEART RRR with normal S1 and S2, no murmurs LUNG clear to auscultation LYMPH NODES No cervical lymphadenopathy, No supraclavicular lymphadenopathy and No axillary lymphadenopathy. ABDOMEN bowel sounds normoactive, no bruits, soft, non-tender, non-distended, without organomegaly or palpable masses EXTREMITIES No edema NEURO Awake, alert and oriented x 3, Normal gait and No involuntary motions. SKIN Skin color, texture, turgor normal, no suspicious rashes or lesions LABS: Component Latest Ref Rng AND Units 05/15/2016 11/19/2016 06/07/2017 11/30/2017 CEA 0.0 - 2.9 ng/mL 1.0 0.9 1.1 1.2 ASSESSMENT/PLAN: 1. 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 ? Per Dr. Smith's previous note: Did not recommend adjuvant chemotherapy based on stage and histologic features. - No concerning findings on exam. - Reviewed CEA with pt. - Colonoscopy due 2019. - CT abd/pelvis due in May. - Follow up in 6 months with CEA after CT abd/pelvis. - Pt. aware to call office with any questions/concerns. The patient indicates understanding of these issues and agrees with the plan. Jaky Quiroga CNP CNOVSP Observed: 12/08/2017 Status: COMPLETED Source: ROANN 9:00 AM [facility] REPOSITORY Visit (SP) Office (GEORGE) BEATRICE SHORE ([id number]) 1945 M Date Time Provider Department 12/08/17 9:00 AM JAKY QUIROGA (ZAY) GEORGE During your visit today, we recorded the following information about you: Temperature Pulse Blood pressure Weight 97.4 degrees 57/minute 114/67 114.3 kg Suzette Vega LPN 12/08/2017 9:03 AM Signed Est patient. Six month ov. Discuss recent labs. Suzette Quiroga CNP 12/08/2017 9:48 AM Signed Chief Complaint Patient presents with: Established Patient HPI: Beatrice Shore is a 72 year old male who presents here today for follow up colon cancer. Per Dr. Smith's previous note: H/o CAD?(Heart cath x2; no stents/CABG; medically managed previously with Plavix and ASA), OA?(was on Meloxicam for right knee pain), TIA?(10/2014; manifested by change in concentration and blurred vision) and sleep apnea. ?? Developed acute lower GI bleed in September 2015. Underwent colonoscopy 09/12/2015 and found to have suspicious appearing mass in the cecum--biopsy showed intramucosal carcinoma. ?? Baseline CEA=5.8 ng/mL. ?? Underwent hemicolectomy 10/07/2015. 4.6 cm well diff tumor with invasion through muscularis propria. No LVI No perineural invasion. 30 of 30 nodes negative. No evidence microsatellite instability by IHC. ? No complaints. Had colonoscopy done 2016. Next due in 3 years. ? Appetite:good Energy level:ANDquot;most of the time it's goodANDquot; Denies fevers or recent illness. Resp:denies cough or sob Cardiac:denies chest pain/palpitations GI:denies abd pain, n/v, moving bowels regularly :denies dysuria/hematuria Extrem:occ. body aches/pains ANDquot;it moves aroundANDquot; Chronic left hip pain s/p replacement Neuro:neuropathy to toes ANDquot;it comes and goesANDquot; Skin:denies rashes/lesions Heme:denies bleeding The ROS is otherwise negative. Past medical history, appointments, medications, allergies reviewed. No changes. EXAM: BP 114/67 Pulse (!) 57 Temp 36.3 ?C (97.4 ?F) Wt 114.3 kg (252 lb) BMI 34.18 kg/m2 APPEARANCE Well appearing, alert, in no acute distress, well- hydrated, well nourished. HEART RRR with normal S1 and S2, no murmurs LUNG clear to auscultation LYMPH NODES No cervical lymphadenopathy, No supraclavicular lymphadenopathy and No axillary lymphadenopathy. ABDOMEN bowel sounds normoactive, no bruits, soft, non-tender, non-distended, without organomegaly or palpable masses EXTREMITIES No edema NEURO Awake, alert and oriented x 3, Normal gait and No involuntary motions. SKIN Skin color, texture, turgor normal, no suspicious rashes or lesions LABS: Component Latest Ref Rng ANDamp; Units 05/15/2016 11/19/2016 06/07/2017 11/30/2017 CEA 0.0 - 2.9 ng/mL 1.0 0.9 1.1 1.2 ASSESSMENT/PLAN: 1. 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 ? Per Dr. Smith's previous note: Did not recommend adjuvant chemotherapy based on stage and histologic features. - No concerning findings on exam. - Reviewed CEA with pt. - Colonoscopy due 2019. - CT abd/pelvis due in May. - Follow up in 6 months with CEA after CT abd/pelvis. - Pt. aware to call office with any questions/concerns. The patient indicates understanding of these issues and agrees with the plan. Jaky Quiroga CNP Referring Provider: JAKY QUIROGA (INSURANCE PROCESSOR) [[id number]] Allergies As of Date: 12/08/2017 Noted Allergy Reaction CODEINE 01/23/2014 1 - Mental Status Change SULFA (SULFONAMIDE ANTIBIOTICS) 01/23/2014 4 - Hives Date Reviewed: 12/08/2017 Reviewed by: Jaky (Yeast Distiller) Kimber - Fully Assessed Reason for Visit: Established Patient [175] Primary Visit Diagnosis:Malignant neoplasm of ascending colon (HCC) [C18.2] Order(s):CT ABD/PEL W IVCON [[id number]] Order #: [id number] FUTURE iv contrast (radiology procedure)CT Chest ABD/PEL-Inject, intravenously, once for 1 dose.No IV access, insert saline lock prior to the beginning of sedation, infusion, injection of imaging exam. Discontinue saline lock post exam. If Pt. has a central line or IVAD, may access for administration according to line specific nursing protocol. Once exam is complete flush line and de- access according to line specific nursing protocol in the CT contrast administration guidelines link.Disp: 1 EachRfl: 0 enteric contrast (radiology procedure)For CT CHESTABD/PEL W IVCON Routine order Administer, As Directed One Time Only, via Oral, Rectal, both Oral and Rectal, Enteric Tube, Stoma or Indwelling Catheter, Enteric Contrast as designated per enteric contrast guidelinesDisp: 1 EachRfl: 0 CEA BLD [SQCEA] Order #: [id number] FUTURE GERARD CREATININE [SQWCRET] Order #: [id number] FUTURE Follow-up and Disposition History Recorded Prescriptions as of 12/08/2017 Sig: CLOPIDOGREL 75 MG TABLET Take 75 mg by mouth once katerine* AMLODIPINE 5 MG TABLET Take 5 mg by mouth once daily. SOUR REYES EXTRACT 1,000 MG * Take 1 tablet by mouth once d* ISOSORBIDE MONONITRATE ER 60 * Take 60 mg by mouth once katerine* PRAVASTATIN 40 MG TABLET Take 40 mg by mouth once katerine* MELOXICAM 15 MG TABLET Take one tablet by mouth ever* METOPROLOL SUCCINATE ER 25 MG* Take 25 mg by mouth once katerine* DIPHENHYDRAMINE 25 MG-ACETAMI* Take 1 tablet by mouth at bed* PYRIDOXINE (VITAMIN B6) 100 M* Take 100 mg by mouth once suleiman* GLUCOSAMINE AND CHONDROIT SUL.N* Take 1 tablet by mouth twice * LISINOPRIL 10 MG-HYDROCHLOROT* Take 0.5 tablets by mouth onc* FOLIC ACID ORAL Take 400 mcg by mouth once da* OMEGA 3 FISH OIL ORAL Take 950 mg by mouth once suleiman* MULTIVITAMIN CAPSULE Take 1 capsule by mouth once * IV CONTRAST (RADIOLOGY PROCED* CT Chest ABD/PEL-Inject, intr* ENTERIC CONTRAST (RADIOLOGY P* For CT CHESTABD/PEL W IVCON R* Problem List As Of Date 12/08/2017 Noted Resolved Colon polyp [K63.5] INVALID FOR* Rectal bleeding [K62.5] INVALID FOR* Left lower quadrant pain [R10.32] INVALID FOR* Transient cerebral ischemia [G45.9] INVALID FOR* ASCVD (arteriosclerotic cardiovascular disease)*INVALID FOR* Malignant neoplasm of ascending colon (HCC) [C1*INVALID FOR* Malignant neoplasm of colon (HCC) [C18.9] INVALID FOR* Visit Notes: >> Suzette Vega LPN WedDec 08, 2017 8:58 AM Status: Signed Est patient. Six month ov. Discuss recent labs. Suzette Vega LPN Encounter Status:Closed by JAKY QUIROGA CNP on 12/08/17 ALLERGIES ALLERGIES DATE TYPE / NAME / CODE REACTION SEVERITY SOURCE CODE 12/01/2018 Drug Sulfa (Sulfonamide Rash Unknown [place] Allergy/41 Antibiotics)/[id number] Community [id number]([facility](RXNORM) [facility]) Repository 12/01/2018 Drug codeine/[id number](RXN Nausea Unknown [place] Allergy/41 ORM) Community 7873075([facility]) Repository 12/01/2018 Drug ranolazine/[id number]( Unknown Unknown [place] Allergy/41 RXNORM) Community 3420055([facility]) Repository 01/23/2014 DRUG CODEINE Mental Chg [place] INGREDI/41 Clinic Main 7118795([facility]) Repository 01/23/2014 Drug SULFA (SULFONAMIDE HIVES [place] Class/4195 ANTIBIOTICS) Clinic Main [address]2783([facility] CT) Repository Drug/89285 codeine [place] 1003([facility]) System Repository Drug/33404 sulfamethoxazole [id number] [facility] 1003([facility]) System Repository Drug/29275 Codeine adverse [id number] [facility] 1003([facility]) System Repository Drug/39273 [facility] 1003([facility] CT) System Repository ENCOUNTERS ENCOUNTERS ADMIT/DISCHARGE ACCOUNT NUMBER ADMITTING ENCOUNTER LOCATION SOURCE CLASS 12/01/2018/12/01/19 [id number] Ambulatory BMSBuilding: Gerard 19 [facility] Repository 11/28/2018 [id number] Ambulatory [facility] ding:LAB Repository 11/22/2018 [id number] Ambulatory [facility] eBuilding:[facility] Repository 11/22/[id number] Ben Grossman [facility] ding:[facility] Repository 11/22/2018/11/22/19 [id number] Ambulatory [place] [address] eBuilding:[facility] oom: Room 3 Repository 11/21/2018 [id number] Ambulatory [facility] ding:AshFamP Repository rac 11/21/2018/11/21/19 [id number] Ambulatory [address] ding:AshFa Repository racRoom: Room 1 11/16/2018/11/18/19 [id number] Ambulatory [address] Repository 11/16/2018/11/16/19 [id number] Ambulatory [address] Repository 11/14/2018/11/14/[id number] ding:[facility] BANEY Repository 11/14/[id number] Repository 10/27/2018 [id number] Ambulatory [facility] ding:RAD.FUT Repository URE 10/12/2018/10/12/20 [id number] Ambulatory [address] ding:SDCRoom Repository : AC19 09/15/2018 [id number] Ambulatory [facility] ding:RAD.FUT Repository URE 08/04/2018/08/04/[id number] [facility] ding:SH.[facility] Repository 08/04/2018 [id number] Ambulatory [address] [place] [address] Repository 07/21/2018/07/26/20 [id number] Ambulatory [address] [place] Repository 07/21/2018/07/21/20 [id number] Ambulatory [address] Main [place] Repository 07/21/2018/07/22/20 [id number] Ambulatory [place] [address] Clinic Main [place] Repository 06/03/2018/06/03/20 [id number] Ambulatory [address] [facility] racRoom: Room 3 06/01/2018/06/02/20 [id number] Ambulatory [place] 18 [facility] Main [place] Repository 05/31/2018/05/31/20 [id number] Ambulatory [place] 18 [facility] Main [place] Repository 05/30/2018/05/31/20 [id number] Ambulatory [place] 18 [facility] Main [place] Repository 05/30/2018/06/01/20 [id number] Ambulatory [place] 18 [facility] [place] Repository 05/30/2018/05/31/20 [id number] Ambulatory [place] 18 [facility] [place] Repository 05/30/2018/05/30/20 [id number] Ambulatory [place] 18 [facility] Main [place] Repository 05/27/2018/05/27/20 [id number] Anne [address] ding:SH.Lab [facility] Repository 05/27/2018 [id number] Ambulatory [address] [place] [address] Repository 04/27/2018/04/27/20 [id number] Ambulatory BMSBuilding: [place] 18 [facility] Repository 04/26/2018/04/26/20 [id number] Ambulatory BMSBuilding: [place] 18 [facility] Repository 04/22/2018 [id number] Ambulatory [facility] Repository 03/10/2018 [id number] Ambulatory [facility] ding:LAB Repository 01/21/2018/01/22/20 [id number] Ambulatory BMSBuilding: [place] 18 [facility] Repository 01/21/2018 [id number] [facility] 01/17/2018 [id number] [facility] [place] [facility] Repository 12/08/2017/12/09/19 [id number] Ambulatory [address] Repository 12/07/2017/12/07/19 [id number] Ambulatory [address] ding:AshFa Repository racRoom: Room 2 PAYERS PAYERS ENCOUNTER GUARANTOR PAYER SUBSCRIBER SOURCE 12/01/2018 DON S [id number] Primary DON S SHAFERDOB: Gerard TR Insurance:AETNA [facility] [id number] Number: [place], [place] [address]Zev: [id number] Repository Date:7259-45-43JS [address] () [place] [address]RE: 12/01/2018 Secondary NOT GIVENUNK [place] Insurance:SELF PAY [facility] Number: Effective Repository Date:2018-12-01 11/28/2018 DON S [id number] Primary DON S SHAFERDOB: [place] TR [facility] [id number] Number: [place], [place] [address]Nxm: [id number] Repository Date:0312-77-56MU [address] () [address], [place] [address]KO: 11/28/2018 Secondary NOT GIVENUNK [place] Insurance:SELF PAY [facility] Number: Effective Repository Date:2018-11-28 11/22/2018 DON S SHAFERDOB: Primary DON S SHAFERDOB: [place] [id number] Insurance:[facility] [id number] [facility] Number: [place] [id number] Effective [address] [place] [address] Repository , [place] Date:2018-11-22 - , [place] [address]Rnd: [id number] [address]Kmv: Name:CD:[id number] O (HP) [address] [place] [address] (HP)Tel: [phone]: (WP) [phone] 11/22/2018 DON S SHAFERDOB: Primary DON S SHAFERDOB: [place] Insurance:[id number] [facility] Number: [facility] System [address] [place] [address] [place] [address] Repository , [place] Date:2018-11-22 - , [place] [address]Fat: [id number] [address]Bwd: Name:CD:[id number] O (HP) [address] [place] [address] ()Tel: [phone]: (WP) [phone] 11/22/2018 DON S SHAFERDOB: Primary DON S SHAFERDOB: [place] Insurance:[id number] [facility]: [facility] System [address] [place] [address] [place] [address] Repository , [place] Date:2018-11-21 - , [place] [address]Jgs: [id number] [address]Xwm: Name:CD:[id number] O (HP) [address] [place] [address] ()Tel: [phone]: (WP) [phone] 11/21/2018 DON S SHAFERDOB: Primary DON S SHAFERDOB: [place] Insurance:[id number] [facility] Number: [facility] [address] Effective [address] [place] [address] Repository , [place] Date:2018-11-21 - , [place] [address]Nxp: [id number] [address]Twj: Name:CD:[id number] O (HP) [address] [place] [address] (HP)Tel: [phone]: (WP) [phone] 11/21/2018 DON S SHAFERDOB: Primary DON S SHAFERDOB: [place] Insurance:1500 [id number] [facility] [address] AETNAPolic Number: [facility] System [address] [place] [address] [place] [address] Repository , [place] Date:2018-06-03 - , [place] [address]Tsa: [id number] [address]Uxe: Name:CD:[id number] O (HP) [address] [place] [address] (HP)Tel: [phone]: (WP) [phone] 11/14/2018 DON S SHAFERDOB: Primary DON S SHAFERDOB: [place] Insurance:AETNAPolicy [id number] [facility] [address] Number: Effective [facility] System [address] [place] [address] Date:2018-11-14 - [address] [place] [address] , [place] [id number] , [place] [address]Zyv: Name:CD:[id number] [address] [address]Cuh: [address] [place] [address] (HP) [phone]: (311) (HP) [phone] (WP) 11/14/2018 DON SHAFERDOB: Primary DON SHAFERDOB: [place] Insurance:AetnaPolicy [id number] [facility] [address] Number: [facility] Repository [address] [place] [address] [id number] [address] [place] [address] Date:Plan Name:[place], [place] [id number]: [id number]: (HP) (PB) 10/27/2018 DON S [id number] Primary DON S SHAFERDOB: [place] TR Insurance:AETNA [facility] [id number] Number: [facility] , [place] [address]Vyh: [id number] Repository Date:2085-11-18LT [address]OX () [place], [place] [address]JQ: 10/27/2018 Secondary NOT GIVENUNK [place] Insurance:SELF PAY Community [facility] Number: Effective Repository Date:2018-10-25 10/12/2018 DON S [id number] Primary DON S SHAFERDOB: [place] TR Insurance:AETNA [facility] [id number] Number: [facility] , [place] [address]Zqo: [id number] Repository Date:4082-54-02CO [address] () [place], [place] [address]XD: 10/12/2018 Secondary NOT GIVENUNK [place] Insurance:SELF PAY Community [facility] Number: Effective Repository Date:2018-09-19 09/15/2018 DON S [id number] Primary DON S SHAFERDOB: [place] TR Insurance:AETNA [facility] [id number] Number: [facility] , [place] [address]Ssu: [id number] Repository Date:3885-22-04VS [address] () [place], [place] [address]WH: 09/15/2018 Secondary NOT GIVENUNK [place] Insurance:SELF PAY Community [facility] Number: Effective Repository Date:2018-09-13 08/04/2018 DON S SHAFERDOB: Primary DON S SHAFERDOB: [place] [id number] Insurance:AETNAPolicy [id number] [facility] Number: Effective [facility] System [address] [place] [address] Date:2018-08-04 - [address] [place] [address] Repository , [place] [id number] , [place] [address]Lkq: Name:CD:[id number] [address] [address]Zcx: [address] [place] [address] () [phone]: (356) (HP) [phone] (WP) 08/04/2018 DON SHAFERDOB: Primary DON SHAFERDOB: [facility] Insurance:[facility] [id number] [facility] [address] Number: [facility] Repository [address] [place] [address] [id number] [facility] Date:Plan Name:[place], [place] [id number]: [phone]: (HP) (HP) 06/03/2018 DON S SHAFERDOB: Primary DON S SHAFERDOB: [place] Insurance:[facility] [id number] [facility] [address] [facility] Number: [facility] System [address] [place] [address] [place] [address] Date:2017-12-07 - , [place] [address]Wrd: [id number] [address]Tns: Name:CD:[id number] O () [address] [place] [address] ()Tel: [phone]: ([phone] 05/27/2018 DON S SHAFERDOB: Primary DON S SHAFERDOB: [place] Insurance:AETNAPolicy [id number] [facility] [address] Number: Effective [facility] System [address] [place] [address] Date:2018-05-27 - [address] [place] [address] , [place] 1048-41-69[place] [address]Xnx: Name:CD:[id number] [address] [address]Rut: [place], [place] (HP) [phone]: [phone]) (HP) [phone] () 05/27/2018 DON SHAFERDOB: Primary DON SHAFERDOB: [place] Insurance:[facility] [id number] [facility] [address] Number: [facility] Repository [address] [place] [address] [id number] [address] [place] [address] Date:Plan Name:[place], [place] [id number]: [phone]: (HP) (HP) 05/27/2018 Secondary DON SHAFERDOB: [place] Insurance:[facility] [id number] [facility] Number: [facility] Repository [id number] [address] [place] [address] Date:Plan Name:[place], [place] [id number]: () 04/27/2018 DON S [id number] Primary DON S SHAFERDOB: [facility] Insurance:AET[employer] [facility] [id number] Number: [place], [place] [address]Mkm: [id number] Repository Date:5848-27-33YL BOX (HP) [place], [place] [address]VM: 04/27/2018 Secondary NOT GIVENUNK [place] Insurance:SELF PAY [facility] Number: Effective Repository Date:2018-04-27 04/26/2018 DON S [id number] Primary DON S SHAFERDOB: [facility] [id number] Number: [place], [place] [address]Ryk: [id number] Repository Date:2219-90-75OW BOX (HP) [place], [place] [address]BM: 04/26/2018 Secondary NOT GIVENUNK [place] Insurance:SELF PAY [facility] Number: Effective Repository Date:2018-04-26 04/22/2018 DON S [id number] Primary DON S SHAFERDOB: [place] TR Insurance:AET[employer] [facility] [id number] Number: [facility] , [place] [address]Iuv: [id number] Repository Date:0972-55-42GL BOX () [place] [address]AT: 04/22/2018 Secondary NOT GIVENUNK [place] Insurance:SELF PAY [facility] Number: Effective Repository Date:2018-04-22 03/10/2018 DON S [id number] Primary DON S SHAFERDOB: [place] TR Insurance:[employer] [facility] [id number] Number: [place], [place] [address]Dtd: [id number] Repository Date:4792-27-66CA [address]OX () [address] [address]KO: 03/10/2018 Secondary NOT GIVENUNK [place] Insurance:SELF PAY [facility] Number: Effective Repository Date:2018-03-10 01/21/2018 DON S [id number] Primary DON S SHAFERDOB: [place] TR Insurance:[employer] [facility] [id number] Number: [facility] , [place] [address]Hky: [id number] Repository Date:7527-04-41JZ [address]OX () [place], [place] [address]AV: 01/21/2018 Secondary NOT GIVENUNK [place] Insurance:SELF PAY [facility] Number: Effective Repository Date:2017-10-19 01/21/2018 DON S [id number] Primary DON S SHAFERDOB: [place] TR Insurance:[employer] [facility] [id number] Number: [facility] , [place] [address]Xce: [id number] Repository Date:9768-15-68CM [address]OX () [place]10[place], [place] [address]HN: 01/21/2018 Secondary NOT GIVENUNK [place] Insurance:SELF PAY [facility] Number: Effective Repository Date:2018-01-21 01/17/2018 DON S [id number] Primary DON S SHAFERDOB: [place] TR Insurance:AETNA [facility] [id number] Number: [facility] , [place] [address]Rpy: [id number] Repository Date:1345-55-63XI [address]OX () [address] [place] [address]GU: 01/17/2018 Secondary NOT GIVENUNK [place] Insurance:SELF PAY [facility] Number: Effective Repository Date:2018-01-17 12/07/2017 DON S SHAFERDOB: Primary DON S SHAFERDOB: [place] Insurance:1500 [id number] [facility] Number: [address] Effective [address] [place] [address] Repository , [place] Date:2017-06-17 - , [place] [id number]: [id number] [id number]: Name:CD:[id number] O (HP) [address], [place] ()Tel: [phone]: ([phone]
== END ==
PROVIDERS: Family Provider Family Medicine; PCP Family Medicine; Referring Provider Physician Assistant Medical; Visit Provider Physician Assistant Medical
DX: E78.5 Hyperlipidemia, unspecified (principal)

== ENCOUNTER → 2019-01-12 20:37 | Outpatient (CLI) | payer MEDICARE, SELFPAY ==
[2018-12-01 09:00] VITALS: BMI 34.5
== END ==
PROVIDERS: Family Provider Family Medicine; PCP Family Medicine; Referring Provider Psychiatry & Neurology Neurology; Visit Provider Psychiatry & Neurology Neurology
DX: G47.33 Obstructive sleep apnea (adult) (pediatric) (principal)
CPT/HCPCS: 95811

== ENCOUNTER 2020-05-21 11:41 | Emergency (ER) | payer MEDICARE, SELFPAY ==
[2019-11-17 08:11] VITALS: BMI 35.4
[2020-05-21 11:42] VITALS: BP 159/77; PULSE 73; RESP 16; TEMP 36.7; BMI 33.7
[2020-05-21 12:20] VITALS: RESP 16; O2SAT 94
--- NOTE | 2020-05-21 12:38 | RAD_ITS ---
STUDY: X-RAY - LEFT SHOULDER REASON FOR EXAM: Male, 74 years old. ROLLED HIS TRACTOR LANDING ON HIS SHOULDER, PAIN AND LUMP AREA OF AC JOINT TECHNIQUE: 4 view(s) of the shoulder. COMPARISON: None. FINDINGS: Normal glenohumeral articulation. There is widening of the AC joint, with displacement of the clavicle, consistent with a Type III acromioclavicular joint separation. Normal acromion. Normal humeral head and visualized proximal humerus. The soft tissue structures are unremarkable. Normal visualized pulmonary apex. RAD/Shoulder min 2 Views IMPRESSION: Type III separation of the left acromioclavicular joint. Electronically Signed: Ozzy Elizabeth, at 13:13 EDT , Service support ,
[2020-05-21 13:08] VITALS: RESP 16
--- NOTE | 2020-05-21 13:41 | ED.VISSUMM ---
- ER Visit Summary Date of Service: 05/21/20 Chief Complaint: Left shoulder injury History of Present Illness: The patient is a 74 M who presents with a left shoulder injury that occurred today. Patient states he was riding on his tractor on a side hill when it fell over. Patient landed on his left shoulder. Patient denies any head injury or loss of consciousness. Patient was able to get out from under the tractor and stand without difficulty. Patient denies any other injuries. Patient states his pain is dull but is sharp with certain movements. Patient denies any paresthesias or weakness. Patient denies any chest pain or shortness of breath. Patient denies any nausea or vomiting. Physical Examination: Vital signs are stable. Patient is afebrile. Patient is in no acute distress. Pupils are equal, round, and reactive to light bilaterally. Extraocular muscles are intact. Neck is supple. Trachea is midline. There is some mild left cervical paraspinal tenderness. There is no midline tenderness. There is no bony crepitance or step-off. There is good range of motion. Heart was regular rate and rhythm. Lungs are clear and equal bilaterally. Abdomen is soft. Bowel sounds are normal. There is no tenderness. Cranial nerves II through XII are intact. There are no focal motor or sensory deficits noted. Musculoskeletal exam reveals tenderness over the acromioclavicular joint of the left shoulder. There is no obvious dislocation. Range of motion was limited in all motions of the left shoulder secondary to pain. There is no laxity appreciated. There is no tenderness over the elbow. Radial pulses are equal bilaterally. Test Results: X-rays of the left shoulder were obtained. There is a grade 3 separation of the left acromioclavicular joint. These were interpreted by myself and the radiologist. Emergency Department Course and Treatment: Patient was placed in a sling and swath. Patient states he has an appointment with [facility] at 3 PM. Case was discussed with Dr. Monzon from [facility]. Patient was instructed to use ice to the area. Patient was instructed to follow-up as scheduled. Patient understood and was agreeable with the plan. All questions were answered. Disposition: Discharge home Impression: 1. Acromioclavicular separation left shoulder This note was generated with [employer] software. It may contain incorrect words, spelling, and punctuation that were not noted in review of the chart prior to signing ED Disposition - Plan for ED Patient: Disposition: Home or Assisted Living Diagnosis: Acromioclavicular joint separation, type 3 Instructions: ED [place] and [place], ED Sprain AC Joint Referrals: Elijah Rodríguez MD [Primary Care Provider] - 5-7 Days Rich Monzon DO [STAFF PHYSICIAN] - 5-7 Days
== END 2020-05-21 14:07 | disposition home or self-care (01) ==
PROVIDERS: Emergency Provider Emergency Medicine; PCP Family Medicine
DX: S43.102A Unspecified dislocation of left acromioclavicular joint, initial encounter (principal); W28.XXXA Contact with powered lawn mower, initial encounter; Y93.H2 Activity, gardening and landscaping; Y92.9 Unspecified place or not applicable; Y99.9 Unspecified external cause status; G47.30 Sleep apnea, unspecified; Z79.02 Long term (current) use of antithrombotics/antiplatelets; Z79.1 Long term (current) use of non-steroidal anti-inflammatories (NSAID); Z79.899 Other long term (current) drug therapy; Z85.038 Personal history of other malignant neoplasm of large intestine; Z87.442 Personal history of urinary calculi
CPT/HCPCS: 73030; 94760; 99282

== ENCOUNTER 2020-12-12 08:42 | Emergency (ER) | payer MEDICARE, SELFPAY ==
[2020-12-06 13:14] VITALS: BMI 33.5
[2020-12-12] VITALS (8 sets, daily range): BP systolic 104–167; BP diastolic 55–106; PULSE 60–69; RESP 15–24; TEMP 36.4; O2SAT 95–99; BMI 34.7
--- NOTE | 2020-12-12 09:02 | ED.VIS.GEN ---
History of Present Illness Chief Complaint: Lower Extremity Injury Narrative: Patient presents with a left hip dislocation. This is the third time that it has happened. It has not happened in a few years. He denies any injury other than bending down to try to tie his shoe. He arrives via EMS. He admits to relatively intense pain in his left hip. He is holding his leg in internal rotation, and it is shortened. Past medical history: Hypertension, hypercholesterolemia, history of hip replacement Medications: Reviewed Social history: Noncontributory Review of systems: All systems negative except as indicated General: Denies: Fever. He did eat a half a piece of toast this morning so he could take his medications ENT: Denies any current sore throat or difficulty swallowing Cardiovascular: Denies: Chest pain Respiratory: Denies: Dyspnea, Cough Gastrointestinal: Denies: Abdominal pain, Nausea, Vomiting Genitourinary: Denies: Dysuria Musculoskeletal: Left hip deformity as in HPI Skin: No abrasions or contusions Neurological: No paresthesias Hematologic: Denies: Easy bruising, Easy bleeding Physical exam General: He appears in some distress Head: Normocephalic, Atraumatic ENT: Moist mucous membranes. I can see his uvula fully when he opens his mouth. Neck: Supple, Nontender, No lymphadenopathy Cardiovascular: Regular rate, Regular rhythm Respiratory: No distress, CTA bilaterally Abdomen: Soft, Nontender, Nondistended Back: Nontender, Normal Inspection. Extremities: Left hip is internally rotated and shortened it is tender to palpation and movement. Skin: Normal color, No rash Neurological: Alert, Normal Strength, Normal Sensation Psychological: Normal affect Past Medical History - Allergies and Home Meds Allergies/Adverse Reactions: Allergies Sulfa (Sulfonamide Antibiotics) Allergy (Verified 12/12/20 08:45) Rash codeine Adverse Reaction (Verified 12/12/20 08:45) Nausea ranolazine [From Ranexa] Adverse Reaction (Verified 12/12/20 08:45) I just did not like it. Primary Care Physician: Elijah Rodríguez MD [Primary Care Provider] - Surgical History: cataract, total hip arthroplasty, tonsillectomy, - - Kidney stone removal, cardiac catheterization Smoking Status: Never smoker - Family History Maternal Family History: Family History (Last Reviewed 12/06/20 @ 13:16 by Sofía Luz) Father CAD (coronary artery disease) Mother CAD (coronary artery disease) Sister HLD (hyperlipidemia) TIA (transient ischemic attack) Family History: Reports: Hypertension Paternal Family History: Family History (Last Reviewed 12/06/20 @ 13:16 by Sofía Luz) Father CAD (coronary artery disease) Mother CAD (coronary artery disease) Sister HLD (hyperlipidemia) TIA (transient ischemic attack) Family History: Reports: Hypertension Sibling Family History: Family History (Last Reviewed 12/06/20 @ 13:16 by Sofía Luz) Father CAD (coronary artery disease) Mother CAD (coronary artery disease) Sister HLD (hyperlipidemia) TIA (transient ischemic attack) Family History: Reports: Stroke Physical Exam Vital Signs/Narrative: Vital Signs Temp Pulse Resp BP Pulse Ox 12/12/20 08:46 97.6 F L 68 17 158/83 H 96 Diagnostic/Tx/Re-eval Left hip x-ray done post reduction interpreted by emergency doctor shows normal reduction, normal alignment. - Medical Decision Making Procedure note: Left hip reduction and procedural sedation Written consent was obtained. Procedural sedation Patient has mild to moderate systemic disease which makes him a reasonable candidate for emergency department procedural sedation. Propofol was used for sedation. See nursing flowsheet for details. Patient was preoxygenated and continued to be on oxygen. His blood pressure and oxygenation saturation remained normal throughout the whole procedure. After the procedure was over he woke up and is now lucid and coherent. He has no respiratory difficulty. Hip reduction Hip reduction was performed by me. Nurses assisted me with holding the pelvis. Hip was manipulated and traction was used for reduction of the hip. Post reduction x-ray shows a reduced hip. Patient was placed in a knee immobilizer. ED course: Procedural sedation and reduction was done by me. Patient tolerated procedure well. He will be referred back to orthopedics. He was placed in a knee immobilizer. ED Disposition - Plan for ED Patient: Disposition: Home or Assisted Living Diagnosis: S/P closed reduction of dislocated total hip prosthesis Instructions: ED Hip Replace Dislocation Reduc Prescriptions: Hydrocodone Bitart/Apap 5-325 [[place] 5MG-325MG] 1 tablet PO Q4H PRN PRN 2 Days #10 tablet PRN Reason: Pain Transmission Status: Sent to [facility] Referrals: Ridge Fournier MD [STAFF PHYSICIAN] - 2 Days
[2020-12-12] MEDS: Propofol 200 MG/20 ML Vial IV BOLUS (09:21)
--- NOTE | 2020-12-12 09:32 | RAD_ITS ---
STUDY: X-RAY - PELVIS AND LEFT HIP REASON FOR EXAM: Male, 75 years old. POST REDUCTION LEFT HIP TECHNIQUE: 2 views of the pelvis and hip. COMPARISON: Comparison is made with prior examination dated 04/19/2017. FINDINGS: Status post reduction of the left prosthetic hip. There is good alignment. RAD/Hip Min 2 Views (Portable) IMPRESSION: Satisfactory reduction of the left prosthetic hip. Electronically Signed: Ozzy Elizabeth MD at 9:47 EST , Service support ,
== END 2020-12-12 11:02 | disposition home or self-care (01) ==
PROVIDERS: Emergency Provider Emergency Medicine; PCP Family Medicine
DX: T84.021A Dislocation of internal left hip prosthesis, initial encounter (principal); X50.1XXA Overexertion from prolonged static or awkward postures, initial encounter; Y93.9 Activity, unspecified; Y92.9 Unspecified place or not applicable; Y99.9 Unspecified external cause status; I10 Essential (primary) hypertension; E78.00 Pure hypercholesterolemia, unspecified; Z79.01 Long term (current) use of anticoagulants; Z79.02 Long term (current) use of antithrombotics/antiplatelets; Z79.899 Other long term (current) drug therapy
CPT/HCPCS: 27265; 73502; 99152; 99285

== ENCOUNTER → 2020-12-18 12:20 | Outpatient (CLI) | payer MEDICARE, SELFPAY ==
[2020-12-12 08:46] VITALS: BMI 34.7
[2020-12-18 13:03] LABS: Erythrocyte Sedimentation Rate 11 mm/hr (0-20)
[2020-12-18 13:05] LABS: Absolute Lymphocyte Count 2.74 X10^3/uL (0.83-4.51); Absolute Neutrophil Count 9.4 X10^3/uL (2.0-7.7); Basophil# 0.05 X10^3/uL; Basophil% 0.4 % (0-1); Eosinophil# 0.16 X10^3/uL; Eosinophils% 1.1 % (0-5); Hematocrit 43.8 % (40-54); Hemoglobin 14.7 g/dL (13.0-16.5); Lymphocyte # 2.74 X10^3/ul (4.0); Lymphocyte % 19.6 % (19-41); Mean Corp Hgb Conc 33.6 g/dL (32-36); Mean Corpuscular Volume 95.2 fL (80-94); Mean Platelet Vol. 9.5 fl (6.2-12.0); Monocyte# 1.56 X10^3/uL; Monocyte% 11.2 % (0-10); NRBC Flagged by Analyzer 0 % (0-5); Neutrophil % 67.1 % (47-70); POSITIVE DIFFERENTIAL YES; Platelet Count 370 K/mm3 (150-450); RBC Distribution Width CV 12.2 % (11.6-14.6); RBC Distribution Width SD 42.4 fl (35.1-43.9)
[2020-12-18 13:06] LABS: Differential Indicated SCAN CRITERIA MET
[2020-12-18 13:18] LABS: CRP 7.56 mg/L (0.0-3.0)
[2020-12-18 14:01] LABS: Platelet Estimate ADEQUATE (ADEQ); Red Cell Morphology NORM C+C NORMAL (NORM C&C)
[2020-12-19 14:00] LABS: Pathologist Review Reviewed
== END ==
PROVIDERS: PCP Family Medicine; Referring Provider Physician Assistant Surgical; Visit Provider Physician Assistant Surgical
DX: T84.021A Dislocation of internal left hip prosthesis, initial encounter (principal); X58.XXXA Exposure to other specified factors, initial encounter; Y93.9 Activity, unspecified; Y92.9 Unspecified place or not applicable; Y99.9 Unspecified external cause status; Z96.642 Presence of left artificial hip joint
CPT/HCPCS: 36415; 85025; 85652; 86140

== ENCOUNTER 2020-12-20 07:37 | Day surgery (SDC) | payer MEDICARE, SELFPAY ==
[2020-12-06 13:14] VITALS: BMI 33.5
[2020-12-12 08:46] VITALS: BMI 34.7
[2020-12-20] MEDS: Lactated Ringers 1,000 ML 100 ML IV (08:02)
--- NOTE | 2020-12-20 08:07 | PCM.HP.BLA ---
Problem List (1) History of colon cancer Status: Chronic History and Physical Date of Admission: 12/20/20 Intake Visit Reasons: CSCOPE/ HISTORY OF BLOOD CLOTS Chief Complaint: Cscope Manager Database Required: No Is patient in pain?: No Allergies ranolazine [From Ranexa] Allergy (Verified 12/06/20 12:48) Unknown Sulfa (Sulfonamide Antibiotics) Allergy (Verified 12/06/20 12:48) Rash codeine Adverse Reaction (Verified 12/06/20 12:48) Nausea Medications Folic Acid 0.4 mg PO DAILY 08/27/13 [History Confirmed 12/06/20] Multivitamins,Therapeutic [Multivitamin] 1 tab PO DAILY 08/27/13 [History Confirmed 12/06/20] Glucosamine Sulfate Dipot Chlr [Glucosamine Relief] 1 tab PO BID 10/01/14 [History Confirmed 12/06/20] Revere-3/Dha/Epa/Fish Oil [Fish Oil 1,400 mg Softgel] 1 tab PO DAILY 10/03/14 [History Confirmed 12/06/20] pyridoxine (vitamin B6) 100 mg tablet 100 mg PO QDAY 01/18/18 [History Confirmed 12/06/20] sour dos santos extract 1,000 mg capsule 1,000 mg PO DAILY 04/27/18 [History Confirmed 12/06/20] Acetaminophen [Tylenol Extra Strength] 500 mg PO Q4H PRN PRN #20 tab 10/12/18 [Rx Confirmed 12/06/20] Ibuprofen 600 mg PO Q6H PRN PRN #20 tab 10/12/18 [Rx Confirmed 12/06/20] lisinopril 10 mg-hydrochlorothiazide 12.5 mg tablet 0.5 tab PO DAILY #45 tab 05/30/19 [Rx Confirmed 12/06/20] meloxicam 15 mg tablet 15 mg PO .every 3 days tab 05/30/19 [History Confirmed 12/06/20] amlodipine 2.5 mg tablet 2.5 mg PO DAILY #90 tab 11/17/19 [Rx Confirmed 12/06/20] fenofibrate nanocrystallized 145 mg tablet 145 mg PO QDAY #90 tab 11/17/19 [Rx Confirmed 12/06/20] isosorbide mononitrate 60 mg tablet,extended release 24 hr 60 mg PO QAM #90 tab 09/19/20 [Rx Confirmed 12/06/20] pravastatin 40 mg tablet 40 mg PO QHS #90 tab 09/19/20 [Rx Confirmed 12/06/20] clopidogrel 75 mg tablet 75 mg PO DAILY #30 tab 11/04/20 [Rx Confirmed 12/06/20] metoprolol succinate 25 mg tablet,extended release 24 hr 25 mg PO QDAY #90 tab 12/03/20 [Rx Confirmed 12/06/20] rivaroxaban 15 mg tablet 15 mg PO DAILY tab 12/06/20 [History Confirmed 12/06/20] [facility] Medical History Hypertriglyceridemia (Chronic) History of dislocation of hip (Chronic) History of nephrolithiasis (Chronic) Asthma (Chronic) History of colon cancer (Chronic) WENDY (obstructive sleep apnea) (Chronic) COPD (chronic obstructive pulmonary disease) (Chronic) Abnormal pulmonary function test (Chronic) Arthritis (Chronic) Hemorrhoids (Chronic) Stomach ulcer (Acute) Knee pain (Acute) History of CVA (cerebrovascular accident) (Chronic) Obesity (Chronic) Atherosclerotic heart disease of [place] coronary artery with other forms of angina pectoris (Chronic) Essential hypertension (Chronic) Hyperlipidemia (Chronic) Transient ischemic attack (Chronic) CKD (chronic kidney disease) stage 3, GFR 30-59 ml/min (Chronic) Colon cancer (Chronic) Earache on left (Resolved) Shoulder pain (Resolved) Surgical History History of left hip replacement (Resolved) History of colectomy (Resolved) History of lithotripsy (Resolved) History of left heart catheterization (Resolved 01/08/16) Family History Father CAD (coronary artery disease) Mother CAD (coronary artery disease) Sister HLD (hyperlipidemia) TIA (transient ischemic attack) Social History (Updated 12/06/20 @ 13:[address] Karthik Eckert MD) Smoking Status: Never smoker alcohol intake: never substance use type: does not use caffeine: No what type of physical activity do you participate in: bicycling frequency: daily duration: 30-45 minutes/day seatbelt use: always do you feel safe at home: Yes HPI HPI HPI: BEATRICE SHORE, is a 75 M who presents to the office today for surgical consultation regarding a surveillance colonoscopy. 75-year-old gentleman. He has a personal history of cecal cancer 2016. He is followed by Jazmine Quiroga CNP and Dr. Justino Smith and his primary care physician is Dr. Rodríguez. His most recent colonoscopy was October 05, 2017. He is slightly tortuous sigmoid colon identified. Patent ileocolonic anastomosis. No adverse outcome. September the patient lost his son in an automobile accident. About the same time he developed lower abdominal pain. It can be sharp. Can be dull. He has not noticed any bright red blood per rectum or melena. He states he just saw Jazmine Quiroga this week. Laboratory was not remarkable. Tumor markers normal by his account. He states that he had a CT scan within the last 6 months which also apparently was clear. He has had a slow weight gain. He is able to climb a flight of stairs. He does suffer from spinal stenosis. August 2020 he was being evaluated spinal stenosis and that incidentally identified a left lower extremity DVT. Apparently also in the previous past he is also had a previous DVT. Based upon that he has been placed on Xarelto in addition to his Plavix therapy which she was already on. He has been instructed that likely both of these will be for life. HPI HPI HPI: BEATRICE SHORE, is a 75 M who presents to the office today for ROS General General: Yes colon cancer; no weight change, appetite, fatigue, breast cancer or weakness HEENT HEENT: Yes eye surgery; no difficulty swallowing, eye injury, swollen glands or hoarseness Endo Endocrine: No thyroid disease, diabetes mellitus, thyroid cancer, Hair loss, heat intolerance or cold intolerance Skin Skin: No rash or changing moles Musc Musculoskeletal: Yes arthritis; no back problems, rheumatoid arthritis, gout or joint pain Cardio Cardiovascular: Yes heart disease and high blood pressure; no murmur, pacemaker, atrial fibrillation, heart attack, heart stent, palpitations, shortness of breat with exertion or chest pain Psych Psychiatric: Yes anxiety; no depression or hearing voices Resp Respiratory: No shortness of breath, Yes sleep apnea, No cough, No COPD, No asthma, No emphysema, No wheezing Gastro Gastrointestinal: Yes abdominal pain, No nausea or vomiting, No diarrhea, No constipation, No blood in stool, No acid reflux, Yes hemorrhoids, Yes ulcers, No gallbladder problem, No black,tarry stools [place] Hematologic: Yes blood thinners, No blood disorders, No bleeding, No anemia, Yes blood clots (Left DVT) Neuro Neurologic: No system reviewed and no additional complaints, except as docu, No as per HPI, No abnormal walking, No abnormal hearing, No abnormal movements, No abnormal speech, No behavioral changes, No burning sensations, No confusion, No seizure-like activity, No unsteadiness, No dizziness, No localized weakness, No frequent falls, No headache(s), No lack of coordination, No loss of vision, No memory loss, No numbness, No other visual disturbances, No radiating pain, No restless legs, No sensory deficit, No fainting, No tingling, No tremor(s), No weakness, No other Exam Const General: cooperative HENMT Head: normal to inspection Chest Chest palpation & inspection: normal inspection of the chest Resp Effort & Inspection: normal respiratory effort Auscultation: clear to auscultation bilaterally Cardio Rate: regular rate Rhythm: regular rhythm Heart Sounds: no murmurs GI Palpation: soft, no hepatosplenomegaly Other: Well-healed surgical vertical vertical incision Neuro Cognition: normal cognition Extrem General: no calf tenderness Psych Affect: normal affect Assessment & Plan Problems 1. History of malignant neoplasm of colon Z85.038 Plan I recommend to the patient a colonoscopy with possible biopsy or polypectomy as indicated. We will have him hold his Xarelto for 2 days preprocedure. He may remain on his Plavix therapy. We will have him hold his fish oil for 1 week. Because of his increasing medical risk I will use monitored anesthesia care. I will carefully evaluate and see if I could come up with a reason for his intermittent nonspecific low suprapubic abdominal pain. He has had an opportunity to ask and have questions answered. I appreciate the ongoing opportunity of assisting with surgical care. Copy: Jazmine Quiroga CNP and Dr. Justino Smith and Dr. Elijah Eckert M.D., F.A.C.S. Orders Orders: Colonoscopy Today Coding Level of Care Code Off vis,est,level 2 Diagnoses History of malignant neoplasm of colon Z85.038 I have re-examined the patient. There are no clinical changes since date of exam. Procedure Criteria Procedure Type: Elective COVID Risk Discussion: The surgeon/proceduralist and patient have discussed in detail the risk of exposure to and/or potential harm posed by the COVID-19 virus with having a surgery/procedure at this time versus the risk of delaying the surgery/procedure. It is not possible to know either the risk of delaying the surgery or procedure or chance of getting an infection with perfect accuracy, but a joint decision was made between the patient and the surgeon/proceduralist to proceed at this time with the scheduled surgery/procedure as indicated on the consent form.
[2020-12-20 08:10] VITALS: BP 122/68; PULSE 71; RESP 16; TEMP 37.2; O2SAT 97; BMI 33.0
[2020-12-20 09:13] VITALS: BP 104/62; BP 122/68; PULSE 70; RESP 16; TEMP 36.8; O2SAT 96
[2020-12-20 09:15] VITALS: BP 103/65; BP 122/68; PULSE 68; RESP 16; O2SAT 96
--- NOTE | 2020-12-20 09:16 | OP.CCLET_ITS ---
12/20/2020 Elijah Rodríguez Md Re : Colonoscopy procedure for Ivan Lozano Dear [place] This procedure was performed on Sunday, December 20, 2020. My impressions and recommendations are as follows: Impressions : - Diverticulosis in the sigmoid colon. - Patent functional end-to-end ileo-colonic anastomosis, characterized by healthy appearing mucosa. - No specimens collected. Recommendations : - Discharge patient to home. - Resume previous diet. - Continue present medications. - Repeat colonoscopy in 5 years for surveillance. My findings are described in the full procedure note, which is enclosed. If I can be of further assistance, please feel free to contact me at Doctor phone number(s): Work: . Sincerely, Karthik Eckert MD 12/20/2020 9:16:02 AM This report has been signed electronically.
--- NOTE | 2020-12-20 09:16 | OP.COLON_ITS ---
Patient Name: Ivan Lozano Procedure Date: 12/20/2020 8:45 AM Date of : 1945 Age: 75 Procedure: Colonoscopy Indications: High risk colon cancer surveillance: Personal history of colon cancer Providers: Karthik Eckert MD Referring MD: Elijah Rodríguez Md Medicines: See the Anesthesia note for documentation of the administered medications Patient Profile: Last Colonoscopy: September 2018. Complications: No immediate complications. Procedure: Pre-Anesthesia Assessment: - Prior to the procedure, a History and Physical was performed, and patient medications and allergies were reviewed. The patient's tolerance of previous anesthesia was also reviewed. The risks and benefits of the procedure and the sedation options and risks were discussed with the patient. All questions were answered, and informed consent was obtained. Prior Anticoagulants: The patient has taken Xarelto (rivaroxaban), last dose was day of procedure. ASA Grade Assessment: II - A patient with mild systemic disease. After reviewing the risks and benefits, the patient was deemed in satisfactory condition to undergo the procedure. After I obtained informed consent, the scope was passed under direct vision. Throughout the procedure, the patient's blood pressure, pulse, and oxygen saturations were monitored continuously. The colonoscope was introduced through the anus and advanced to the ileocolonic anastomosis. The colonoscopy was performed without difficulty. The patient tolerated the procedure well. The quality of the bowel preparation was good. Ileocolonic anastomosis were photographed. Scope In: 8:56:20 AM Scope Withdrawal Time 0 hours 9 minutes 34 seconds Scope Out: 9:09:56 AM Total Procedure Duration Time 0 hours 13 minutes 36 seconds Findings: The perianal and digital rectal examinations were normal. Scattered diverticula were found in the sigmoid colon. There was evidence of a prior functional end-to-end ileo-colonic anastomosis in the ascending colon. This was patent and was characterized by healthy appearing mucosa. Impression: - Diverticulosis in the sigmoid colon. - Patent functional end-to-end ileo-colonic anastomosis, characterized by healthy appearing mucosa. - No specimens collected. Recommendation: - Discharge patient to home. - Resume previous diet. - Continue present medications. - Repeat colonoscopy in 5 years for surveillance. Procedure Code(s): --- Professional --- 07761, Colonoscopy, flexible; diagnostic, including collection of specimen(s) by brushing or washing, when performed (separate procedure) Diagnosis Code(s): --- Professional --- Z85.038, Personal history of other malignant neoplasm of large intestine Z98.0, Intestinal bypass and anastomosis status K57.30, Diverticulosis of large intestine without perforation or abscess without bleeding CPT copyright 2017 [employer]. All rights reserved. The codes documented in this report are preliminary and upon marking room supervisor review may be revised to meet current compliance requirements. Karthik Eckert MD 12/20/2020 9:16:02 AM This report has been signed electronically. Number of Addenda: 0 Note Initiated On: 12/20/2020 8:45 AM
[2020-12-20 09:20] VITALS: BP 106/71; BP 122/68; PULSE 69; RESP 16; O2SAT 95
[2020-12-20 09:25] VITALS: BP 111/69; BP 122/68; PULSE 66; RESP 16; TEMP 36.6; O2SAT 97
[2020-12-20 09:45] VITALS: BP 122/68
== END 2020-12-20 09:59 | disposition home or self-care (01) ==
LOC: EN 07:37 → AC 07:37
PROVIDERS: PCP Family Medicine; Referring Provider Family Medicine; Visit Provider Surgery
PROC: 0DJD8ZZ Inspection of Lower Intestinal Tract, Via Natural or Artificial Opening Endoscopic (ICD-10-PCS; CPT 45378; principal; 2020-12-20 08:40)
DX: Z12.11 Encounter for screening for malignant neoplasm of colon (principal); K57.30 Diverticulosis of large intestine without perforation or abscess without bleeding; Z98.0 Intestinal bypass and anastomosis status; Z20.822 Contact with and (suspected) exposure to COVID-19; J44.9 Chronic obstructive pulmonary disease, unspecified; I12.9 Hypertensive chronic kidney disease with stage 1 through stage 4 chronic kidney disease, or unspecified chronic kidney disease; N18.30 Chronic kidney disease, stage 3 unspecified; I25.118 Atherosclerotic heart disease of native coronary artery with other forms of angina pectoris; E78.5 Hyperlipidemia, unspecified; G47.33 Obstructive sleep apnea (adult) (pediatric); E66.9 Obesity, unspecified; Z79.1 Long term (current) use of non-steroidal anti-inflammatories (NSAID); Z79.02 Long term (current) use of antithrombotics/antiplatelets; Z79.01 Long term (current) use of anticoagulants; Z85.038 Personal history of other malignant neoplasm of large intestine; Z86.73 Personal history of transient ischemic attack (TIA), and cerebral infarction without residual deficits; Z86.718 Personal history of other venous thrombosis and embolism
CPT/HCPCS: G0105; 87426; C9803; J7120

== ENCOUNTER 2020-12-21 20:39 | Emergency (ER) | payer MEDICARE, SELFPAY ==
[2020-12-20 08:10] VITALS: BMI 33.0
[2020-12-21 20:39] VITALS: BP 146/79; PULSE 72; RESP 16; TEMP 36.4; O2SAT 95; BMI 34.0
--- NOTE | 2020-12-21 20:50 | EKG12_ITS ---
Test Reason : CP Blood Pressure : / mmHG Vent. Rate : 073 BPM Atrial Rate : 073 BPM P-R Int : 168 ms QRS Dur : 098 ms QT Int : 390 ms P-R-T Axes : 051 065 029 degrees QTc Int : 429 ms Normal sinus rhythm Normal ECG Confirmed by DIXON CARPENTER, RL ([id number]), video effects editor MANJINDER REBOLLEDO ([id number]) on 12/23/2020 12:22:30 P M Referred By: HANG Confirmed By:HONG METCALF MD
--- NOTE | 2020-12-21 20:50 | CT_ITS ---
STUDY: CT BRAIN WITHOUT CONTRAST REASON FOR EXAM: Male, 75 years old. CHEST PAIN, DIZZINESS. RADIATION DOSAGE (If Supplied By Facility): CTDIvol = ( 44.99 ) mGy, DLP = ( 880.47 ) mGycm TECHNIQUE: Transaxial CT imaging of the brain was performed without administration of intravenous contrast material. Individualized dose optimization techniques were used for this CT. COMPARISON: No relevant priors. FINDINGS: Normal soft tissue structures. Normal calvarium. There is mild cerebral atrophy with widening of the extra-axial spaces and ventricular dilatation. Normal white matter tracts of the cerebral hemispheres. Normal basal ganglia and thalami. Normal brainstem. Normal cerebellum. There is no intracranial hemorrhage. There are no findings of an acute ischemic infarction. Normal visualized paranasal sinuses. CT/Brain/Head without Contrast IMPRESSION: 1. No acute findings. 2. Chronic involutional changes. Electronically Signed: Helena Juarez MD at 22:42 EST Tel , Service support ,
--- NOTE | 2020-12-21 20:50 | ED.VIS.GEN ---
History of Present Illness Chief Complaint: Chest Pain Detail of Chief Complaint: I just feel off. Informant: Patient Onset: Today Narrative: Patient presents with multitude of symptoms. He states he just does not feel right today. He has had episodes of dizziness and lightheadedness as well as times where his body will just shake briefly. This afternoon he started getting some left-sided chest pressure while he was sitting at rest. Patient denies recent fall or injury. He did have a colonoscopy yesterday. He had a Covid test 3 days ago that was negative. - Past Medical History (1) Arthritis Status: Chronic (2) Asthma Status: Chronic (3) Atherosclerotic heart disease of [place] coronary artery with other forms of angina pectoris Status: Chronic (4) CKD (chronic kidney disease) stage 3, GFR 30-59 ml/min Status: Chronic (5) COPD (chronic obstructive pulmonary disease) Status: Chronic (6) Colon cancer Status: Chronic (7) Essential hypertension Status: Chronic (8) History of CVA (cerebrovascular accident) Status: Chronic (9) Hyperlipidemia Status: Chronic (10) Transient ischemic attack Status: Chronic Past Medical History - Allergies and Home Meds Allergies/Adverse Reactions: Allergies Sulfa (Sulfonamide Antibiotics) Allergy (Verified 12/20/20 07:49) Rash codeine Adverse Reaction (Verified 12/20/20 07:49) Nausea ranolazine [From Ranexa] Adverse Reaction (Verified 12/20/20 07:49) I just did not like it. Primary Care Physician: Elijah Rodríguez MD [Primary Care Provider] - Surgical History: cataract, total hip arthroplasty, tonsillectomy, - - Kidney stone removal, cardiac catheterization Lives: Spouse/ Significant Other Smoking Status: Never smoker - Family History Maternal Family History: Family History (Last Reviewed 12/06/20 @ 13:16 by Sofía Luz) Father CAD (coronary artery disease) Mother CAD (coronary artery disease) Sister HLD (hyperlipidemia) TIA (transient ischemic attack) Family History: Reports: Hypertension Paternal Family History: Family History (Last Reviewed 12/06/20 @ 13:16 by Sofía Luz) Father CAD (coronary artery disease) Mother CAD (coronary artery disease) Sister HLD (hyperlipidemia) TIA (transient ischemic attack) Family History: Reports: Hypertension Sibling Family History: Family History (Last Reviewed 12/06/20 @ 13:16 by Sofía Luz) Father CAD (coronary artery disease) Mother CAD (coronary artery disease) Sister HLD (hyperlipidemia) TIA (transient ischemic attack) Family History: Reports: Stroke Review of Systems General: Denies: Chills, Fever Eyes: Denies: Visual changes - bilaterally ENT: Denies: Bilateral ear pain Cardiovascular: Reports: Chest pain. Denies: Palpitations, Heart racing Respiratory: Denies: Dyspnea, Cough Gastrointestinal: Denies: Abdominal pain, Nausea, Vomiting, Diarrhea Genitourinary: Denies: Dysuria Musculoskeletal: Denies: Swelling, Extremity Pain Skin: Denies: Rash Neurological: Denies: Headache Hematologic: Denies: Easy bruising, Easy bleeding Allergy: Denies: Uticaria Physical Exam Vital Signs/Narrative: Vital Signs Temp Pulse Resp BP Pulse Ox 12/21/20 20:39 97.5 F L 72 16 146/79 H 95 Inital Vital Signs reviewed: Yes General: Well nourished, Well developed Head: Normocephalic ENT: Moist mucous membranes Neck: Supple Cardiovascular: Regular rate, Regular rhythm Respiratory: No distress, CTA bilaterally Abdomen: Soft, Nontender Back: Nontender Extremities: Nontender Skin: Normal color, No rash Neurological: Alert, Oriented x3, Normal Strength, Normal Sensation Psychological: Normal affect Diagnostic/Tx/Re-eval Chest X-Ray - ED: 1 View, Read by ED Physician, Chronic Changes Impressions Chest X-Ray 12/21/20 20:52 IMPRESSION: Normal x-ray examination of the chest. Electronically Signed: Helena Juarez MD at 21:04 EST Tel , Service support , 12/21/20 20:50 Brain/Head without Contrast [CT] Stat 12/21/20 20:52 Chest 1 View (Portable) [RAD] Stat Laboratory Results 12/21/20 12/21/20 12/21/20 20:50 20:50 20:50 WBC 12.3 H RBC 4.29 L Hgb 13.9 Hct 40.9 MCV 95.3 H MCH 32.4 H MCHC 34.0 RDW Std Deviation 42.2 RDW Coeff of Guzman 12.2 Plt Count 334 MPV 9.9 Immature Gran % (Auto) 0.600 Neut % (Auto) 65.6 Lymph % (Auto) 19.6 [place] % (Auto) 12.5 H Eos % (Auto) 1.5 Baso % (Auto) 0.2 Absolute Neuts (auto) 8.1 H Absolute Lymphs (auto) 2.41 Nucleated RBC % 0 D-Dimer Quant (PE/DVT) 0.58 H* Sodium 137 Potassium 3.6 Chloride 106 Carbon Dioxide 25.0 Anion Gap 6 BUN 31 H Creatinine 1.74 H Estim Creat Clear Calc 39.67 Est GFR (MDRD) Af Amer 50 L Est GFR (MDRD) Non-Af 41 L BUN/Creatinine Ratio 17.8 Glucose 143 H Calcium 9.4 Troponin I < 0.015 - EKG Initial EKG Interpretation: Sinus Rhythm - Sinus at 73 with no acute ischemia. - Medical Decision Making Patient was placed on cardiac surgeon on arrival. No arrhythmias noted. Vital signs been stable. Blood work is reviewed. Creatinine is elevated from baseline. This may be dehydration secondary to his recent colonoscopy prep. He is given IV fluid bolus. Portable chest x-ray per my interpretation is unremarkable. At this time we are awaiting official report on CT scan of the head as well as a urinalysis. This to be signed out to oncoming physician. Test results up to this point to be discussed with patient and at bedside. ED Disposition - Plan for ED Patient: Referrals: Elijah Rodríguez MD [Primary Care Provider] -
--- NOTE | 2020-12-21 20:52 | RAD_ITS ---
STUDY: X-RAY CHEST REASON FOR EXAM: Male, 75 years old. CP and dizziness. TECHNIQUE: Single AP portable view of the chest. COMPARISON: 01/03/2016. FINDINGS: The lungs are clear and expanded. There is no demonstrated pleural abnormality. Normal size heart. Normal mediastinum and torres. Normal visualized pulmonary arteries. Normal visualized aortic arch and descending thoracic aorta. Normal visualized thoracic spine. Normal visualized ribs, clavicles, and shoulders. There is no demonstrated abnormality of the visualized soft tissue structures of the upper abdomen. RAD/Chest 1 View (Portable) IMPRESSION: Normal x-ray examination of the chest. Electronically Signed: Helena Juarez MD at 21:04 EST Tel , Service support ,
[2020-12-21 21:33] LABS: Absolute Lymphocyte Count 2.41 X10^3/uL (0.83-4.51); Absolute Neutrophil Count 8.1 X10^3/uL (2.0-7.7); Basophil# 0.03 X10^3/uL; Basophil% 0.2 % (0-1); Eosinophil# 0.18 X10^3/uL; Eosinophils% 1.5 % (0-5); Hematocrit 40.9 % (40-54); Hemoglobin 13.9 g/dL (13.0-16.5); Lymphocyte # 2.41 X10^3/ul (4.0); Lymphocyte % 19.6 % (19-41); Mean Corpuscular Hgb 32.4 pg (27.0-32.0); Mean Corpuscular Volume 95.3 fL (80-94); Mean Platelet Vol. 9.9 fl (6.2-12.0); Monocyte# 1.54 X10^3/uL; Monocyte% 12.5 % (0-10); NRBC Flagged by Analyzer 0 % (0-5); Neutrophil # 8.07 X10^3/uL (2.7-7.7); Neutrophil % 65.6 % (47-70); POSITIVE DIFFERENTIAL YES; Platelet Count 334 K/mm3 (150-450); RBC Distribution Width CV 12.2 % (11.6-14.6); RBC Distribution Width SD 42.2 fl (35.1-43.9); Red Blood Count 4.29 M/mm3 (4.6-6.2); White Blood Count 12.3 K/mm3 (4.4-11.0)
[2020-12-21] MEDS: 0.9% Normal Saline 1,000 ML 150 ML IV (21:33)
[2020-12-21 21:36] LABS: Differential Indicated SCAN CRITERIA MET
[2020-12-21 21:39] VITALS: BP 124/66; PULSE 65; RESP 21; O2SAT 93
[2020-12-21 21:41] LABS: Anion Gap 6 (5-15); BUN 31 mg/dL (7-18); BUN/Creat Ratio 17.8 RATIO (10-20); Calcium,Total 9.4 mg/dL (8.5-10.1); Chloride 106 mmol/L (98-107); Creatinine, Serum 1.74 mg/dL (0.70-1.30); EST Glomerular Filtration Rate 41 mL/min (>60); Est Glom Filt Rate - Afr Amer 50 mL/min (>60); Estimated Creatinine Clearance 39.67 ml/min; Glucose 143 mg/dL (74-106); Potassium 3.6 mmol/L (3.5-5.1); Sodium Level 137 mmol/L (136-145)
[2020-12-21 21:42] LABS: D-Dimer Quantitative (DVT/PE) 0.58 FEU/ug/m (0.27-0.49)
--- NOTE | 2020-12-21 21:48 | ED.RN ---
D-DIMER OF 0.[address] MAURICIO. VERBALIZES UNDERSTANDING
[2020-12-21] MEDS: 0.9% Normal Saline 1,000 ML 999 ML IV (22:20)
[2020-12-21 22:44] VITALS: BP 123/71; PULSE 64; RESP 16; O2SAT 95
[2020-12-21 22:59] LABS: Bacteria 0 SEEN /hpf (None Seen); Mucous, Urine 0 SEEN /hpf (<or=2+); Red Blood Cells-Urine 0 SEEN /hpf (0-5); Squamous Epithelial Cells - UA 0 SEEN /hpf (0-5); White Blood Cells 0 SEEN /hpf (0-5)
[2020-12-21 23:01] LABS: Color, Urine Yellow (Yellow); Glucose, Dipstick Normal (Normal); Ketone-Dipstick Negative (Negative); Leukocyte Esterase-Dipstick Negative /ul (Negative); Nitrite-Dipstick Negative (Negative); Occult Blood-Urine Negative /ul (Negative); Protein-Dipstick Negative (Negative); Urine Bilirubin Dipstick Negative (Negative); Urine Clarity Clear (Clear); Urine Urobilinogen Normal (Normal)
--- NOTE | 2020-12-21 23:28 | ED.DEP ---
ED Disposition - Plan for ED Patient: Disposition: Home or Assisted Living Diagnosis: Dehydration Instructions: ED Dehydration (Adult) Referrals: Elijah Rodríguez MD [Primary Care Provider] - As Needed
[2020-12-21 23:47] VITALS: BP 123/64; PULSE 65; RESP 16; O2SAT 98
[2020-12-23 14:07] LABS: Pathologist Review Reviewed
== END 2020-12-21 23:48 | disposition home or self-care (01) ==
PROVIDERS: Emergency Medicine; Emergency Provider Emergency Medicine; PCP Family Medicine
DX: E86.0 Dehydration (principal); T47.4X5A Adverse effect of other laxatives, initial encounter; Y92.9 Unspecified place or not applicable; R07.89 Other chest pain; R42 Dizziness and giddiness; I25.118 Atherosclerotic heart disease of native coronary artery with other forms of angina pectoris; J44.9 Chronic obstructive pulmonary disease, unspecified; I12.9 Hypertensive chronic kidney disease with stage 1 through stage 4 chronic kidney disease, or unspecified chronic kidney disease; N18.30 Chronic kidney disease, stage 3 unspecified; E78.5 Hyperlipidemia, unspecified; M19.90 Unspecified osteoarthritis, unspecified site; Z79.01 Long term (current) use of anticoagulants; Z79.02 Long term (current) use of antithrombotics/antiplatelets; Z79.899 Other long term (current) drug therapy; Z86.73 Personal history of transient ischemic attack (TIA), and cerebral infarction without residual deficits; Z85.038 Personal history of other malignant neoplasm of large intestine
CPT/HCPCS: 70450; 71045; 80048; 81001; 84484; 85025; 85379; 93005; 96360; 96361; 99285; J7030; A4216

== ENCOUNTER 2021-01-29 09:48 | Inpatient (IN) | payer MEDICARE, SELFPAY ==
[2020-12-12 08:46] VITALS: BMI 34.7
[2021-01-02 10:25] VITALS: BMI 33.9
--- NOTE | 2021-01-13 12:46 | HP.PCM_ITS ---
History and Physical History and Physical [facility] Patient Name: Ivan Lozano : 1945 From: KEZIA BARAKAT PA-C DATE OF SURGERY: 01/29/2021 SCHEDULED PROCEDURE: revision left total hip arthroplasty HISTORY OF PRESENT ILLNESS: Preoperative history and physical exam was performed on January 13, 2021. This is a 75-year-old male who was sustained 3 previous dislocations on his left hip. He underwent a surgery in 1987 when he rolled his tractor causing an acetabular fracture and dislocation. Patient underwent that surgery but then had posttraumatic arthritis in which she had a revision prior hip surgery to a total hip replacement by Dr. Dean Cuenca on September 02, 2010. Following that surgery he had a dislocation that was reduced by Dr. Arriaga on May 26, 2013 and this closed reduction from a number dislocation on April 19, [address] Dean Cuenca. He had a third dislocation on December 12, 2020 when he was putting on her socks. Patient went to [facility] emergency room in which reduction was performed. He was placed in a knee immobilizer and referred for orthopedic evaluation. Patient states his pain is well controlled at this time but he is very concerned with dislocating. He nearly dislocated again just trying to reach to his right but stopped due to having some pain in the hip. Patient does complain of radicular pain down bilateral legs in which he sees a back specialist Dr. Godinez at [facility]. 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 He is currently on Rivaroxaban. He is also taking Plavix and is followed by stenographic court reporter. Patient has had previous heart catheterization. He also has history of colon cancer 3 years ago. Patient has obtain surgical clearance from his primary care physician Dr. Rodríguez and which states he can stop the Rivaroxaban 3 days prior to surgery. He is also obtain surgical clearance from the stenographic court reporter Dr. Andujar and he will stop his Plavix 5 days before surgery. Patient currently denies any chest pain, shortness of breath, fevers chills, recent infections. After failing conservative measures with physical therapy, the patient does wish to proceed with a revision left total hip arthroplasty. This was discussed at length with the patient by myself and Dr. Ridge Fournier. REVIEW OF SYSTEMS: ROS: Const: Reports hard of hearing, but denies anorexia, anxiety, change in appetite, fever, vision problems and weight change. CV: Denies chest pain, heart murmur, irregular heartbeat and peripheral vascular disease. Resp: Denies asthma, cough, pneumonia, sleep apnea, SOB, tuberculosis and wheezing. GI: Denies constipation, diarrhea, difficulty swallowing, heartburn, nausea, bloody stools and vomiting. : Urinary: denies incontinence. Musculo: Reports limp, but denies leg swelling, trouble walking and weakness. Skin: Reports history of shingles, but denies Raynaud's and tattoo. Neuro: Reports difficulty with balance and dizziness but denies ambulatory dysfunction, numbness/tingling and tremor. Psych: Denies anxiety, depression, insomnia, mental illness and stress. Bladimir/Lymph: Denies anemia, bleeding/bruising tendency and past transfusion. Reviewed and updated. PAST MEDICAL HISTORY: Advance Care Plan: Other Directive, POA Effective Date: 04/20/2017 Other Directive, LIVING WILL Effective Date: 04/20/2017 PMH: Medical Problems: Arthritis, High Blood Pressure, High Cholesterol, Kidney Stones, Dizzy Spells Heart Disease - (12/13/2020) Heart cath x 2 TIA, Sleep Apnea, Spinal Stenosis History Of Blood Clots/ DVT - 2019-lower leg History Of Colon Cancer Accidents: Fracture - (1987) ASITABULAR FX Sports Related Injury - (1974) DISLOCATED FINGER Hand - (1975) SMASHED IN WOOD SPLITTER LT Shoulder Dislocation - (05/21/2020) ROLLED TRACTOR LT Hip Dislocation - (12/12/2020) 2016,2010 Surgical Hx: Tonsillectomy - (1954) [place] Hip Surgery - (1987) LT [facility] Teeth Kidney Stone Surgery - X 5 [facility] LT THR - (09/02/2010) [email or web address] Kidneystone Blasting - (2010) 2019 Kidney Stones - (01/2012) GALLITO @ [facility] Colon Resection Lumbar Decompression - (05/2020) [place] Ablation Of Kidney Anesthesia Complications: None Assistive Devices: Glasses, Hearing Aid, Cane Reviewed and updated. SOCIAL HISTORY: SH: Marital: .Occupation: Retired.Work Status: Retired.Hand Dominance: Right- Handed. Personal Habits: Tobacco Use: Patient has never smoked.Cigarette Use: Never.Alcohol: Denies use.Drug Use: Denies Use.Enjoy Exercising: Daily. Reviewed and updated. VITALS: Ht: 72 Wt: 240lb Wt k.864 BMI: 32.5 BP: 124/80 Pulse: 68 Resp: 14 T: 97.2 T: 36.2C Pain Level: 2 ALLERGIES: Sulfa Codeine MEDICATIONS: Acetaminophen PM Extra Strength 500-25 mg AT bedtime, Isosorbide Mononitrate ER 60 mg every morning, Amlodipine Besylate 2.5 mg daily, Lisinopril- Hydrochlorothiazide 10-12.5 mg daily, Folic Acid 400 mcg 1po qday, Vitamin B-6 100 mg 1po qday, [place]-3 Fish Oil 1360 mg 1po qday, Ultra Man 1po qday, M etoprolol Succinate ER 25 mg 1 po bid, Clopidogrel Bisulfate 75 mg 1po qday, Glucosamine Chondroitin 1500 Complex 1500 Com 1po qday, Tylenol Extra Strength 500 mg as needed, Pravastatin Sodium 40 mg 1 by mouth every day, Amlodipine Besylate 5 mg 1 by mouth every day, Tart Emery Advanced 1 cap PO daily, Xarelto 15 mg 1 PO q day PRE-OP EXAM: General appearance:NORMAL Other: Eyes: Conjunctivae and lids: NORMAL Pupils: ERR Ears, Nose, Mouth, and Throat: NORMAL Other: Inspection of lips, teeth and gums: NORMAL Other: Neck: Examination of neck: no masses noted. Respiratory: Assessment of respiratory effort: NORMAL Other: Auscultation of lungs: clear to auscultation no wheezes, rhonchi or rales. Cardiovascular: Auscultation of heart: regular rate and rhythm, no murmurs, gallops or rubs. Exam of carotid arteries: NORMAL Other: Gastrointestinal: Exam of abdomen: soft, nontender, nondistended bowel sounds present. PHYSICAL EXAMINATION: Patient currently ambulates with a cane. Previous left hip incision is well healed without any erythema. Range of motion was deferred due to history of several dislocations. Sensation intact to light touch. Neurovascularly intact. IMAGING: Previous x-rays of the left hip has revealed 3 separate posterior superior dislocations that were all adequately reduced. He does have previous hardware from acetabular fracture. There is a washer that was left and from his original surgery that is in the soft tissue no longer over the trochanter. Patient did have a previous trochanter osteotomy and screws which had been removed for the total hip replacement. No appreciable fractures. Acetabular component is well positioned with good anteversion in the femoral component appears to have adequate anteversion and is well positioned. IMPRESSION: 1. Previous left total hip arthroplasty with 3 separate dislocations 2. Hypertension 3. Hypercholesterolemia 4. Coronary artery disease with previous heart catheterization 5. Sleep apnea 6. Lumbar stenosis 7. History of blood clot currently on Rivaroxaban 8. History of colon cancer PLAN: Dr. Ridge Fournier did discuss and review with the patient all treatment options including surgical versus nonsurgical options. Patient does wish to proceed with the above-stated procedure. Potential risks, benefits, and complications of the procedure were discussed in detail including but not limited to , infection, nerve and blood vessel damage, persistent pain, numbness, tingling, paresthesias, blood clot, pulmonary embolism, and requirement for possible f urther surgery. The patient expressed full understanding and has no further questions for the doctor. Patient does agree to proceed with the above-stated procedure and has signed the surgery consent form. We discussed the current risks associated with COVID 19. This does include the risk of exposure while in the hospital. Patient was reassured local hospitals have low infection rates and are taking all necessary precautions to avoid exposure to patients. In addition, we discussed strategies that can be used to help limit exposure including those that limit the patient's time in the [facility]ospi [facility]. Also using strategies to limit the patient's need for continued inpatient services after being discharged from the hospital. Patient was notified that we will need to comply with any screening or testing the hospital wishes to perform or that surgery may be delayed for any positive results. This dictation was created using voice recognition software. Phonetic and/or grammatical errors may exist. ___ I have re-examined the patient. There are no clinical changes since date of exam. ___ See progress notes for changes. ___ Dictated on admission Date: Time: Signature:
[2021-01-20 10:57] LABS: Absolute Lymphocyte Count 2.14 X10^3/uL (0.83-4.51); Absolute Neutrophil Count 4.4 X10^3/uL (2.0-7.7); Basophil# 0.04 X10^3/uL; Basophil% 0.5 % (0-1); Eosinophil# 0.25 X10^3/uL; Hematocrit 46.5 % (40-54); Hemoglobin 15.7 g/dL (13.0-16.5); Lymphocyte # 2.14 X10^3/ul (4.0); Lymphocyte % 25.7 % (19-41); Mean Corp Hgb Conc 33.8 g/dL (32-36); Mean Corpuscular Hgb 32.4 pg (27.0-32.0); Mean Corpuscular Volume 96.1 fL (80-94); Mean Platelet Vol. 9.7 fl (6.2-12.0); Monocyte# 1.44 X10^3/uL; Monocyte% 17.3 % (0-10); NRBC Flagged by Analyzer 0 % (0-5); Neutrophil # 4.44 X10^3/uL (2.7-7.7); Neutrophil % 53.3 % (47-70); Platelet Count 277 K/mm3 (150-450); RBC Distribution Width CV 12.2 % (11.6-14.6); RBC Distribution Width SD 43.2 fl (35.1-43.9); Red Blood Count 4.84 M/mm3 (4.6-6.2); White Blood Count 8.3 K/mm3 (4.4-11.0)
[2021-01-20 11:13] LABS: International Normalized Ratio 1.5; Prothrombin Time (Protime)PT. 17.9 SECONDS (11.7-14.9)
[2021-01-20 11:15] LABS: Partial Thromboplast Time 31.1 Seconds (24.1-36.2)
[2021-01-20 11:26] LABS: AST(SGOT) 26 U/L (15-37); Alanine Aminotransfer ALT/SGPT 31 U/L (16-61); Albumin, Serum 3.5 g/dL (3.2-5.0); Alkaline Phosphatase 81 U/L (45-117); Anion Gap 4 (5-15); BUN 27 mg/dL (7-18); BUN/Creat Ratio 19.3 RATIO (10-20); Bilirubin, Direct 0.19 mg/dL (0.00-0.30); Calcium,Total 9.6 mg/dL (8.5-10.1); Chloride 108 mmol/L (98-107); EST Glomerular Filtration Rate 53 mL/min (>60); Est Glom Filt Rate - Afr Amer 64 mL/min (>60); Globulin 3.5 g/dL (2.2-4.2); Glucose 93 mg/dL (74-106); Magnesium 2.1 mg/dL (1.6-2.6); Potassium 4.2 mmol/L (3.5-5.1); Sodium Level 139 mmol/L (136-145)
[2021-01-29] VITALS (13 sets, daily range): BP systolic 114–160; BP diastolic 42–78; PULSE 66–83; RESP 15–18; TEMP 36.2–37.1; O2SAT 94–99; BMI 34.0
[2021-01-29] MEDS: Lactated Ringers 1,000 ML 75 ML IV (10:46)
[2021-01-29] MEDS: Lactated Ringers 1,000 ML 999 ML IV ×2 (10:46→13:00)
[2021-01-29] MEDS: Gabapentin 600 MG Tablet PO (10:51)
[2021-01-29] MEDS: Acetaminophen 500 MG Tablet 1000 MG PO ×2 (10:51→22:31)
[2021-01-29 11:20] LABS: Bedside Glucose 123 mg/dL (70-110)
[2021-01-29] MEDS: Cefazolin 2 GM in 0.9% Normal Saline 100 ML IV (12:20)
[2021-01-29] MEDS: Heparin 10,000 UNITS/10 ML Vial 10000 UNITS ×2 (12:56)
[2021-01-29] MEDS: Lactated Ringers 1,000 ML 125 ML IV ×2 (14:00→18:24)
--- NOTE | 2021-01-29 14:10 | PCM.OPRPT ---
Report of Operation Date of Procedure: 01/29/21 Pre-Operative Diagnosis: Left total hip instability Post-Operative Diagnosis: Left total hip instability Surgery/Procedure Performed:: Left revision total hip replacement acetabular and femoral component Description of Surgical Findings:: Patient had a leg length discrepancy. For this reason we revised the femoral head to a longer neck and the abductors were compromised as suspected preoperatively. We used a constrained liner to address this. gas appliance servicer: Deven Vega Type of Anesthesia:: General Anesthesiologist: Froilan Barreto Special Medications: 2 g Ancef, 2 g TXA lavage at completion of case, 10 mg Decadron, joint cocktail (5 mg Duramorph, 30 mL of 0.5% Ropivicaine, 1000 units of epinephrine, 30 mg of Toradol) Specimen's removed: 3 separate specimens were sent to microbiology Estimated Blood Loss (mL): 250 mL Fluids Replaced: 1500 mL crystalloid Description of Procedure: Findings: Adequate reduction with stability of the hip and equal leg lengths measured intraoperatively. Components used: 1. Ludy trilogy longevity constrained liner 2. Ludy Biolox 36+7 mm, 14 taper femoral head Brief history operative indications: 75-year-old male with previous total replacement in 2012. Patient had multiple dislocations over the last several years. Most recent being couple months ago. After 3 separate dislocations patient demonstrated a gross instability even with certain activities of daily living. Based on this we elected to proceed with revision left total hip arthroplasty. Based on the preoperative implant position as well as patient's previous limp I explained to the patient most likely he had deficient abductors and would need additional stability of the hip related to a constrained liner. Risks and benefits were discussed with the patient which included but were not limited to blood loss, DVTs, PEs, infection, neurovascular damage, and dislocation. In light of all this patient did agree to proceed with a revision total hip arthroplasty. Procedure: On the date of procedure the patient's l hip was marked in the preoperative area. Patient was then taken back to the operating room where anesthesia assumed control of the C-spine and airway and administered anesthetic. Patient was transferred to the operating table and placed in the lateral decubitus position with the affected hip up. The patient was secured in the bed with the lateral positioners and leg lengths were checked. The l lower extremity was then prepped out in a sterile fashion using chlorhexidine while the surgeon scrubbed. Upon reentering the room the l lower extremity was draped in the standard orthopedic fashion and the incision was marked. A timeout was called and everyone agreed upon the side, the site, the procedure be performed, antibiotics given, and patient's identity. At this time incision was made through skin, subcutaneous tissue, and fat down to fascia. The fascia was then incised and a Charley retractor was placed. The soft tissue was then cleared from the posterior hip and at this point we had clear visualization of the hip replacement. A complete synovectomy was performed. Synovium was sent for culture. There was synovial fluid surrounding the joint upon entering it. None of this was suspicious for infection. Once we had completed our synovectomy the hip was dislocated. The femoral head was dislodged from the trunnion using a bone tamp. We were able to retract the femoral component and neck anteriorly and obtain access to the acetabulum. The ring separator was used and the acetabular liner was removed. At this point two more specimens of acetabular membrane was sent for culture. A constrained acetabular liner trial liner was put into place. Hip was taken through range of motion. Based on this there was minimal impingement and the hip remained stable. This was also done with a +7 mm trial. Trials were then removed after dislocating the hip with the assistance of my physician itinerant teacher assistant. Once the trials were removed 6 L of normal saline were irrigated throughout the wound under low-pressure lavage. The trial he was removed in order to do this to take tension off the skin. Once this was done the Charnley was replaced. The femur was again retracted anteriorly and the acetabular liner was impacted into place in the appropriate rotation. We then placed the acetabular liner ring over the femoral neck. Trunnion was cleaned and the femoral head component was impacted into place. Once this was done we reduced the hip and engage the ring to the constrained liner. Once this was done hip and was taken through range of motion without evidence of impingement on the raised areas. Patient had good range of motion stable hip without excess impingement.. There were no posterior structures to repair. At this time 3-minute Betadine lavage was performed followed by 1 minute chlorhexidine lavage followed by TXA lavage. This was all followed by a normal saline lavage prior to closure. Closure was then done using #1 Vicryl to close the fascia. A 2-0 Vicryl interrupted sutures were used to close the subcutaneous skin. Skin ayan were used for final skin closure. A sterile dressing was placed. Patient was awakened by anesthesia and transferred to the [facility]. Patient was then transferred to the PACU for recovery. Postoperative plan: Patient will get 24 hours postop antibiotics. Patient will get in-house physical therapy and will be weight-bear as tolerated. Patient will follow up in office in 2 weeks for a wound check and x-rays. Doxycycline for 1 week as we follow cultures. Resume Xarelto and Plavix tomorrow. During the course of the procedure the physician labor and delivery registered nurse (PE) played a vital role. Their intimate knowledge of my steps in the procedure aided in safe and expedient completion of the procedure. The PE played a vital rolls in positioning particularly in obtaining the appropriate lateral decubitus position. The PE was also vital in the retraction of soft tissues during the exposure and especially the femoral work as this is a vital part of the procedure to prevent complications and fractures. The PE was also vital and protecting soft tissues during times of bony cuts and reaming. He also played a vital role in closure with my direct supervision. The PE was also important during reduction and dislocation of the joint and trials intraoperatively. - Complications No intraoperative complications - Admit VTE Documentation VTE Present on Admission: No VTE Mechan Device Prophylaxis: SCD's, Thigh High KATELYNN Hose VTE Pharm Prophylaxis ordered?: Yes
--- NOTE | 2021-01-29 14:45 | RAD_ITS ---
STUDY: X-RAY - PELVIS AND LEFT HIP REASON FOR EXAM: Male, 75 years old. Post Op -- AP both hips on single james/lateral of op hip PACU TECHNIQUE: 3 views of the pelvis and hip. COMPARISON: Comparison is made with prior examination dated 12/12/2020. FINDINGS: The patient is status post left total hip replacement with evidence of a open reduction and internal fixation of the right acetabulum. This is unchanged. RAD/Hip Min 2 Views (Portable) IMPRESSION: Status post left total hip replacement with ORIF of the left acetabulum. This is unchanged. Electronically Signed: Ozzy Elizabeth MD at 15:02 EDT , Service support ,
--- NOTE | 2021-01-29 18:10 | PCM.CONS.GEN ---
<Saira Johnston - Last Filed: 01/29/21 18:10> Problem List (1) S/P revision of total hip Status: Acute (2) Atherosclerotic heart disease of [place] coronary artery with other forms of angina pectoris Status: Chronic (3) Hyperlipidemia Status: Chronic Qualifiers: Hyperlipidemia type: pure hypercholesterolemia Qualified Code(s): E78.00 - Pure hypercholesterolemia, unspecified; E78.0 - Pure hypercholesterolemia (4) Essential hypertension Status: Chronic (5) WENDY (obstructive sleep apnea) Status: Chronic (6) COPD (chronic obstructive pulmonary disease) Status: Chronic (7) Arthritis Status: Chronic (8) History of CVA (cerebrovascular accident) Status: Chronic (9) Obesity Status: Chronic (10) CKD (chronic kidney disease) stage 3, GFR 30-59 ml/min Status: Chronic Reason for Consult Date of Consultation: 01/29/21 Reason for Consultation: Comanagement following revision left total hip History of Present Illness: The patient is a 75 year old M who underwent a revision of his left total hip replacement today. Patient has reportedly had 3 dislocations of his left hip following a tractor accident in 1987 with the most recent being December 12, 2020. Patient reports that he has radicular pain down bilateral legs and is following with a back specialist at [facility]. Patient failed physical therapy and other conservative measures prior to surgery at which time a revision was decided upon with Dr. Fournier. Patient has a medical history that includes arthritis, chronic kidney disease, COPD, hypertension, hyperlipidemia, history of CVA, obstructive sleep apnea. Patient is currently up walking with PT and denies pain. Patient complains of dizziness, stating he has had this after surgery before and also experiences motion sickness. Patient denies other complaints. at bedside reports that she has brought patient's home BiPAP. Past Medical History Past Medical History (Chronic Problems): Chronic Problems (Last Reviewed 01/29/21 @ 18:21 by Saira Johnston, [employer]-C) Atherosclerotic heart disease of [place] coronary artery with other forms of angina pectoris (Chronic) Hyperlipidemia (Chronic) Essential hypertension (Chronic) Hypertriglyceridemia (Chronic) Asthma (Chronic) WENDY (obstructive sleep apnea) (Chronic) COPD (chronic obstructive pulmonary disease) (Chronic) Abnormal pulmonary function test (Chronic) Arthritis (Chronic) Hemorrhoids (Chronic) History of CVA (cerebrovascular accident) (Chronic) Obesity (Chronic) Transient ischemic attack (Chronic) CKD (chronic kidney disease) stage 3, GFR 30-59 ml/min (Chronic) Medical History: Medical History (Last Reviewed 01/29/21 @ 18:21 by Saira Johnston NP-C) Atherosclerotic heart disease of [place] coronary artery with other forms of angina pectoris (Chronic) I25.118 Hyperlipidemia (Chronic) E78.5 Essential hypertension (Chronic) I10 Hypertriglyceridemia (Chronic) E78.1 Asthma (Chronic) J45.909 WENDY (obstructive sleep apnea) (Chronic) G47.33 COPD (chronic obstructive pulmonary disease) (Chronic) J44.9 Abnormal pulmonary function test (Chronic) R94.2 Arthritis (Chronic) M19.90 Hemorrhoids (Chronic) K64.9 History of CVA (cerebrovascular accident) (Chronic) Z86.73 Obesity (Chronic) E66.9 Transient ischemic attack (Chronic) G45.9 CKD (chronic kidney disease) stage 3, GFR 30-59 ml/min (Chronic) Colon cancer (Resolved) C18.9 History of dislocation of hip Z87.39 History of nephrolithiasis Z87.442 Stomach ulcer K25.9 Earache on left (Resolved) H92.02 Hip dislocation, left Onset Date: 12/12/20 S73.005A History of colon cancer Z85.038 Knee pain (Resolved) M25.569 Shoulder pain M25.519 Allergies Sulfa (Sulfonamide Antibiotics) Allergy (Verified 01/29/21 10:21) Rash codeine Adverse Reaction (Verified 01/29/21 10:21) Nausea ranolazine [From Ranexa] Adverse Reaction (Verified 01/29/21 10:21) I just did not like it. Home Medications: Ambulatory Orders Medication Instructions Recorded Folic Acid 0.4 mg PO DAILY 08/27/13 Multivitamins,Therapeutic 1 tab PO DAILY 08/27/13 [Multivitamin] Glucosamine Sulfate Dipot Chlr 1,875 mg PO BID 10/01/14 [Glucosamine Relief] [place]-3/Dha/Epa/Fish Oil [Fish Oil 1 tab PO DAILY 10/03/14 1,400 mg Softgel] pyridoxine (vitamin B6) 100 mg 100 mg PO QDAY 01/18/18 tablet sour dos santos extract 1,000 mg 1,000 mg PO DAILY 06/20/18 capsule Acetaminophen [Tylenol Extra 500 mg PO Q4H PRN PRN #20 tab 10/12/18 Strength] rivaroxaban 15 mg tablet 15 mg PO DAILY tab 12/06/20 Acetaminophen/Diphenhydramine 1 ea PO QHS 12/12/20 [Tylenol Pm Ex-Strength Caplet] Metoprolol Succinate [Toprol Xl] 25 mg PO DINNER 12/12/20 Zinc 50 mg PO DAILY 12/17/20 elderberry fruit 200 mg capsule 200 mg PO DAILY 01/02/21 Amlodipine Besylate 2.5 mg PO DAILY 01/15/21 Clopidogrel Bisulfate [Clopidogrel] 75 mg PO DAILY 01/15/21 Isosorbide Mononitrate [Isosorbide 60 mg PO QAM 01/15/21 Mononitrate ER] Lisinopril/Hydrochlorothiazide 0.5 tab PO DAILY 01/15/21 [Lisinopril-Hctz 10-12.5 mg Tab] Pravastatin Sodium 40 mg PO QHS 01/15/21 Surgical History: Surgical History (Last Reviewed 01/29/21 @ 18:21 by RENEE Yuen) History of left heart catheterization (Resolved) Onset Date: 01/08/16 Z98.890 History of colectomy Z90.49 History of colonoscopy Onset Date: ~12/20/20 Z98.890 History of left hip replacement Z96.642 History of lithotripsy Z98.890 for kidney stones Surgical History: cataract, total hip arthroplasty, tonsillectomy, - - Kidney stone removal, cardiac catheterization Psychiatric History: No pertinent psych hx Lives: Spouse/ Significant Other Smoking Status: Never smoker Tobacco Use: Non-smoker Alcohol: None Drugs: None - *Family History Maternal Family History: Family History (Last Reviewed 01/29/21 @ 18:21 by RENEE Yuen) Father CAD (coronary artery disease) Mother CAD (coronary artery disease) Sister HLD (hyperlipidemia) TIA (transient ischemic attack) History Items: Hypertension Paternal Family History: Family History (Last Reviewed 01/29/21 @ 18:21 by RENEE Yuen) Father CAD (coronary artery disease) Mother CAD (coronary artery disease) Sister HLD (hyperlipidemia) TIA (transient ischemic attack) History Items: Hypertension Sibling Family History: Family History (Last Reviewed 01/29/21 @ 18:21 by JOCELINE YuenC) Father CAD (coronary artery disease) Mother CAD (coronary artery disease) Sister HLD (hyperlipidemia) TIA (transient ischemic attack) History Items: Stroke Review of Systems Constitutional: Denies: Chills, Fever, Weight Change HEENT: Denies: Head Aches, Sinus Congestion, Sinus Drainage Cardiovascular: Denies: Chest Pain, Palpitations Respiratory: Denies: Cough, Shortness of breath at rest, Sputum production Gastrointestinal: Denies: Abdominal Pain, Nausea, Vomiting Genitourinary: Denies: Dysuria Musculoskeletal: Denies: Joint Pain, Joint Tenderness Skin: Denies: Rash, Wounds Neurological: Reports: - - Dizziness, patient states this is normal for him after surgery.. Denies: Focal weakness, Numbness, Tingling Psychiatric: Denies: Anxiety, Depression, Homicidal Ideations, Suicidal Ideations Hematologic/ Lymphatic: Reports: Hx of blood clot. Denies: Easy Bruising, Easy Bleeding - Physical Exam Vitals/I&O's: Vital Signs Temp Pulse Resp BP Pulse Ox 97.4 F L 73 16 122/49 H 99 01/29/21 15:53 01/29/21 15:53 01/29/21 15:53 01/29/21 15:53 01/29/21 15:53 Oxygen Flow Rate (L/min) 6 Oxygen Delivery Method Simple Mask Weight: 244 lb 4.355 oz Body Mass Index (BMI) 34.0 Finger Stick Blood Glucose 127 Intake and Output for Last 24 Hours 01/27/21 01/28/21 01/29/21 23:59 23:59 23:59 Intake Total 3336.5 / 3336.5 Balance 3336.5 / 3336.5 General: Alert, Oriented x3, Cooperative HEENT: Atraumatic, PERRLA, EOMI, Normocephalic Neck: Supple, No JVD, Negative Carotid Bruits Lungs: Clear to auscultation, Normal air movement Cardiovascular: Regular rate, No murmurs Abdomen: Bowel Sounds Present, Soft, Non Tender Extremities: No edema, Capillary Refill Less than 3 Seconds Skin: No rashes, No breakdown, Incision - Incision to left hip, dressing dry and intact Musculoskeletal: No Tenderness to Palpation of Joints or Extremities Neurological: Cranial nerves II-XII grossly intact Psych/Mental Status: Normal Affect, Appropriate Microbiology Past 72 Hours 01/28/21 09:00 Interface Orders SARS-CoV-2 Antigen (Rapid) - Final Laboratory Results 01/29/21 10:19: POC Glucose 123 H Current Medications Acetaminophen (Acetaminophen 500 Mg Tablet) 1,000 mg PO Q8 [facility] Last Admin: 01/29/21 17:42 Dose: Not Given Documented by: Amlodipine Besylate (Amlodipine 2.5 Mg Tablet) 2.5 mg PO DAILY [facility] Clopidogrel Bisulfate (Clopidogrel Bisulfate 75 Mg Tablet) 75 mg PO DAILY [facility] Doxycycline Monohydrate (Doxycycline 100 Mg Capsule) 100 mg PO BID [facility] Enteral Nutritional Formula (Ensure Surgery 237 Ml Liquid) 237 ml PO TIDCM [facility] Famotidine (Famotidine 20 Mg Tablet) 20 mg PO DAILY [facility] Folic Acid (Folic Acid 1 Mg Tablet) 1 mg PO DAILY@0800 [facility] Hydrochlorothiazide (Hydrochlorothiazide 12.5mg) 12.5 mg PO DAILY [facility] Lactated Ringer's () 1,000 mls @ 125 mls/hr IV .Q8H [facility] Stop: 01/29/21 21:59 Last Admin: 01/29/21 14:00 Dose: 125 mls/hr Documented by: Lactated Ringer's () 1,000 mls @ 75 mls/hr IV .[id number] [facility] Stop: 01/30/21 01:24 Last Infusion: 01/29/21 15:19 Dose: Infused Documented by: Lactated Ringer's () 1,000 mls @ 125 mls/hr IV .Q8H [facility] Cefazolin Sodium () 1 gm in 50 mls @ 150 mls/hr IV Q8H [facility] Stop: 01/30/21 04:49 Sodium Chloride () 250 mls @ 15 mls/hr IV .[id number] PRN PRN Reason: Saline Flush Sodium Chloride () 250 mls @ 15 mls/hr IV .[id number] PRN PRN Reason: Additional IVPB Infusion Insulin Human Lispro (Insulin Lispro 100 Unit/Ml Insuln.Pen) 1 - 6 unit SC Q4H PRN PRN; Protocol PRN Reason: BG>/= 180, SEE PROTOCOL Isosorbide Mononitrate (Isosorbide Mononitrate 60 Mg Tablet) 60 mg PO QAM [facility] Ketorolac Tromethamine (Ketorolac 15 Mg/Ml Vial) 15 mg IV Q6H PRN PRN PRN Reason: Pain Score 1-5 Stop: 01/30/21 19:16 Lisinopril (Lisinopril 10 Mg Tablet) 10 mg PO DAILY [facility] Meloxicam (Meloxicam 7.5 Mg Tablet) 7.5 mg PO BID [facility] Metoprolol Succinate (Metoprolol(Xl)Succ 25 Mg Tablet) 25 mg PO DINNER [facility] Morphine Sulfate (Morphine 2 Mg/Ml Syringe) 2 - 4 mg IV Q2H PRN PRN PRN Reason: Pain Score 4-10 Multivitamins (Multivitamins,Therapeutic Tablet) 1 tablet PO DAILYCM [facility] Ondansetron HCl (Ondansetron 4 Mg/2 Ml Vial) 4 mg IV Q8H PRN PRN PRN Reason: NAUSEA Oxycodone HCl (Oxycodone 5 Mg Tablet) 5 - 10 mg PO Q4H PRN PRN PRN Reason: Pain Score 4-10 Pravastatin Sodium (Pravastatin 40 Mg Tablet) 40 mg PO QHS [facility] Promethazine HCl (Promethazine 25 Mg/Ml Syringe) 12.5 mg IM Q6H PRN PRN; Protocol PRN Reason: NAUSEA/VOMITING Rivaroxaban (Rivaroxaban 15 Mg Tablet) 15 mg PO DAILY [facility] Senna/Docusate Sodium (Senna/Docusate Sodium 1 Tablet) 2 tablet PO BID [facility] Sodium Chloride (0.9% Saline Lock 10 Ml Syringe) 10 - 40 ml IV UD PRN PRN Reason: SALINE FLUSH Assessment/Plan All Active Problems (Last Reviewed 01/29/21 @ 18:21 by Saira Johnston, [employer]-C) S/P revision of total hip (Acute) History of left heart catheterization (Resolved 01/08/16) Colon cancer (Resolved) Acute bronchitis (Resolved) Earache on left (Resolved) Knee pain (Resolved) 1. Status post revision of total hip -postop day #0. -currently ambulating with therapy without difficulty. -Pain is well controlled with ordered pain management. 2. Vertigo -Patient has had prior episodes of vertigo following surgery. -Will order meclizine x1. 3.Hypertension -Blood pressure well controlled, 136/78 -Continue home regimen of hydrochlorothiazide, metoprolol, lisinopril, Norvasc and isosorbide. 4. Hyperlipidemia -Continue pravastatin 5. COPD -Well-controlled, currently not on medication. -As needed O2 ordered. 6. Obstructive sleep apnea -BiPAP ordered, brought in home BiPAP. 7. Osteoarthritis -Continue Mobic, Toradol, and OxyIR per Ortho 8. Atherosclerotic heart disease of [place] coronary artery with other forms of angina pectoris -Plavix and Xarelto ordered to restart morning of 01/30/2021 9. Chronic kidney disease stage III, GFR 30-59 ml/min -BUN and creatinine consistent with patient baseline, 04/12.40, GFR 53. -CMP in morning. 10. GERD -Continue Pepcid 11.Obesity -Lifestyle modification encouraged. DVT prophylaxis-SCDs ordered. This patient was seen by RENEE Yuen under the supervision of Dr. Flores. <Jorge Luis Flores - Last Filed: 01/29/21 19:52> Reason for Consult History of Present Illness: The patient is a 75 year old M with history of left [place] [address] Cuenca was admitted after elective left hip revision by Dr. Fournier. Patient had 3 dislocations of left hip most recently in December 2020. Patient also has history of left hip 2 times DVT and is on Xarelto. Patient has history of TIA, obstructive sleep apnea, lumbar spinal stenosis with radicular pain in both legs, dyslipidemia, CKD and history of colon cancer. Mild coronary artery disease, last heart cath in 2016. Last heart cath in 2016 shows moderate disease in mid segment of LAD, circumflex artery with distal subtotal occlusion with left to left collaterals in the RCA. EF noted was 65% with no wall motion abnormality. Patient did not had urine after 11 AM today. Patient is awake and alert. Denies chest pressure/pain, shortness of breath, diaphoresis, missed or irregular heartbeat. No abdominal pain. Bowel movement regular. Patient has chronic dizziness and currently having dizziness but getting better after meclizine. No vertigo. Patient has BiPAP for history of obstructive sleep apnea. [] Twelve-lead EKG reviewed. Normal sinus rhythm at 73 bpm. Patient had preoperative cardiology risk evaluation by Dr. Andujar in December 2020. Past Medical History Medical History: Medical History (Last Reviewed 01/29/21 @ 18:21 by RENEE Yuen) Atherosclerotic heart disease of [place] coronary artery with other forms of angina pectoris (Chronic) I25.118 Hyperlipidemia (Chronic) E78.5 Essential hypertension (Chronic) I10 Hypertriglyceridemia (Chronic) E78.1 Asthma (Chronic) J45.909 WENDY (obstructive sleep apnea) (Chronic) G47.33 COPD (chronic obstructive pulmonary disease) (Chronic) J44.9 Abnormal pulmonary function test (Chronic) R94.2 Arthritis (Chronic) M19.90 Hemorrhoids (Chronic) K64.9 History of CVA (cerebrovascular accident) (Chronic) Z86.73 Obesity (Chronic) E66.9 Transient ischemic attack (Chronic) G45.9 CKD (chronic kidney disease) stage 3, GFR 30-59 ml/min (Chronic) Colon cancer (Resolved) C18.9 History of dislocation of hip Z87.39 History of nephrolithiasis Z87.442 Stomach ulcer K25.9 Earache on left (Resolved) H92.02 Hip dislocation, left Onset Date: 12/12/20 S73.005A History of colon cancer Z85.038 Knee pain (Resolved) M25.569 Shoulder pain M25.519 Allergies Sulfa (Sulfonamide Antibiotics) Allergy (Verified 01/29/21 10:21) Rash codeine Adverse Reaction (Verified 01/29/21 10:21) Nausea ranolazine [From Ranexa] Adverse Reaction (Verified 01/29/21 10:21) I just did not like it. Surgical History: Surgical History (Last Reviewed 01/29/21 @ 18:21 by RENEE Yuen) History of left heart catheterization (Resolved) Onset Date: 01/07/ Z98.890 History of colectomy Z90.49 History of colonoscopy Onset Date: ~12/20/20 Z98.890 History of left hip replacement Z96.642 History of lithotripsy Z98.890 for kidney stones - *Family History Maternal Family History: Family History (Last Reviewed 01/29/21 @ 18:21 by RENEE Yuen) Father CAD (coronary artery disease) Mother CAD (coronary artery disease) Sister HLD (hyperlipidemia) TIA (transient ischemic attack) Paternal Family History: Family History (Last Reviewed 01/29/21 @ 18:21 by RENEE Yuen) Father CAD (coronary artery disease) Mother CAD (coronary artery disease) Sister HLD (hyperlipidemia) TIA (transient ischemic attack) Sibling Family History: Family History (Last Reviewed 01/29/21 @ 18:21 by RENEE Yuen) Father CAD (coronary artery disease) Mother CAD (coronary artery disease) Sister HLD (hyperlipidemia) TIA (transient ischemic attack) Review of Systems Hematologic/ Lymphatic: Reports: Easy Bruising, Easy Bleeding, Hx of blood clot Objective: General: Alert, Oriented x3, Cooperative HEENT: Atraumatic, PERRLA, EOMI, Normocephalic Oral: No Gingival or Mucosal Lesions/ Ulcerations Neck: Supple, No JVD, Negative Carotid Bruits Lungs: Air entry diminished in bilateral lung bases. No crepitation/rhonchi Cardiovascular: Regular rate, Regular Rhythm, Normal S1, Normal S2, No murmurs Abdomen: Bowel Sounds Present, Soft, Non Tender, Non-Distended : No renal angle tenderness. No suprapubic tenderness. Extremities: Bilateral KATELYNN hose above-knee. No edema, Capillary Refill Less than 3 Seconds Skin: No rashes, No breakdown Musculoskeletal: Left hip operative region is dry with dressing intact. No palpable hematoma. No Tenderness to Palpation of other joints or Extremities Neurological: Cranial nerves II-XII grossly intact, Deep Tendon Reflexes 2+/4 and Symmetrical, Neuro grossly intact Psych/Mental Status: Normal Affect, Appropriate. - Physical Exam Vitals/I&O's: Vital Signs Temp Pulse Resp BP Pulse Ox 98.6 F 68 18 136/78 H 94 01/29/21 18:10 01/29/21 18:22 01/29/21 18:10 01/29/21 18:22 01/29/21 18:10 Oxygen Flow Rate (L/min) 6 Oxygen Delivery Method Room Air Weight: 244 lb 4.355 oz Body Mass Index (BMI) 34.0 Finger Stick Blood Glucose 127 Intake and Output for Last 24 Hours 01/27/21 01/28/21 01/29/21 23:59 23:59 23:59 Intake Total 4126.5 / 4126.5 Balance 4126.5 / 4126.5 Microbiology Past 72 Hours 01/28/21 09:00 Interface Orders SARS-CoV-2 Antigen (Rapid) - Final Laboratory Results 01/29/21 10:19: POC Glucose 123 H Current Medications Acetaminophen (Acetaminophen 500 Mg Tablet) 1,000 mg PO Q8 [facility] Last Admin: 01/29/21 17:42 Dose: Not Given Documented by: Amlodipine Besylate (Amlodipine 2.5 Mg Tablet) 2.5 mg PO DAILY [facility] Clopidogrel Bisulfate (Clopidogrel Bisulfate 75 Mg Tablet) 75 mg PO DAILY [facility] Doxycycline Monohydrate (Doxycycline 100 Mg Capsule) 100 mg PO BID [facility] Enteral Nutritional Formula (Ensure Surgery 237 Ml Liquid) 237 ml PO TIDCM [facility] Last Admin: 01/29/21 18:21 Dose: Not Given Documented by: Famotidine (Famotidine 20 Mg Tablet) 20 mg PO DAILY [facility] Folic Acid (Folic Acid 1 Mg Tablet) 1 mg PO DAILY@0800 [facility] Hydrochlorothiazide (Hydrochlorothiazide 12.5mg) 12.5 mg PO DAILY [facility] Lactated Ringer's () 1,000 mls @ 125 mls/hr IV .Q8H [facility] Stop: 01/29/21 21:59 Last Infusion: 01/29/21 18:24 Dose: Infused Documented by: Lactated Ringer's () 1,000 mls @ 75 mls/hr IV .[id number] [facility] Stop: 01/30/21 01:24 Last Infusion: 01/29/21 15:19 Dose: Infused Documented by: Lactated Ringer's () 1,000 mls @ 125 mls/hr IV .Q8H [facility] Last Admin: 01/29/21 18:24 Dose: 125 mls/hr Documented by: Cefazolin Sodium () 1 gm in 50 mls @ 150 mls/hr IV Q8H [facility] Stop: 01/30/21 04:49 Sodium Chloride () 250 mls @ 15 mls/hr IV .[id number] PRN PRN Reason: Saline Flush Sodium Chloride () 250 mls @ 15 mls/hr IV .[id number] PRN PRN Reason: Additional IVPB Infusion Insulin Human Lispro (Insulin Lispro 100 Unit/Ml Insuln.Pen) 1 - 6 unit SC Q4H PRN PRN; Protocol PRN Reason: BG>/= 180, SEE PROTOCOL Isosorbide Mononitrate (Isosorbide Mononitrate 60 Mg Tablet) 60 mg PO QAM [facility] Ketorolac Tromethamine (Ketorolac 15 Mg/Ml Vial) 15 mg IV Q6H PRN PRN PRN Reason: Pain Score 1-5 Stop: 01/30/21 19:16 Lisinopril (Lisinopril 10 Mg Tablet) 10 mg PO DAILY [facility] Meloxicam (Meloxicam 7.5 Mg Tablet) 7.5 mg PO BID [facility] Metoprolol Succinate (Metoprolol(Xl)Succ 25 Mg Tablet) 25 mg PO DINNER [facility] Last Admin: 01/29/21 18:22 Dose: 25 mg Documented by: Morphine Sulfate (Morphine 2 Mg/Ml Syringe) 2 - 4 mg IV Q2H PRN PRN PRN Reason: Pain Score 4-10 Multivitamins ([facility]ivitamins,Therapeutic Tablet) [facility] Ondansetron HCl (Ondansetron 4 Mg/2 Ml Vial) 4 mg IV Q8H PRN PRN PRN Reason: NAUSEA Oxycodone HCl (Oxycodone 5 Mg Tablet) 5 - 10 mg PO Q4H PRN PRN PRN Reason: Pain Score 4-10 Pravastatin Sodium (Pravastatin 40 Mg Tablet) 40 mg PO QHS [facility] Promethazine HCl (Promethazine 25 Mg/Ml Syringe) 12.5 mg IM Q6H PRN PRN; Protocol PRN Reason: NAUSEA/VOMITING Rivaroxaban (Rivaroxaban 15 Mg Tablet) 15 mg PO DAILY [facility] Senna/Docusate Sodium (Senna/Docusate Sodium 1 Tablet) 2 tablet PO BID [facility] Sodium Chloride (0.9% Saline Lock 10 Ml Syringe) 10 - 40 ml IV UD PRN PRN Reason: SALINE FLUSH Assessment/Plan This patient was seen in conjunction with MICHAEL Chávez. I have independently interviewed and examined the patient and reviewed pertinent history, examination findings, laboratory and plan of management. I have reviewed the note and agree with the documented findings with the few additional points. In brief, patient is admitted for elective left total hip revision after recurrent dislocation with first left hip surgery in 2019. 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 Pain control. PT and OT. Patient has history of chronic dizziness. Meclizine is ordered. Acute urine retention after surgery. Last urine output at 11 AM today. Discussed with the nursing staff and advised straight cath. Bladder scan every 4 hourly. Coronary artery disease: No active cardiovascular symptoms. EKG reviewed as mentioned in HPI. COPD, central sleep apnea on BiPAP: No shortness of breath or wheezing. DuoNeb as needed. CKD stage III: Follow-up BUN, creatinine, electrolytes, intake and output. Other comorbidities with hypertension, dyslipidemia blood pressure is controlled. I have discussed my assessment with MICHAEL Chávez and orders have been reviewed. Inpatient E&M: 23018 Init Hosp L3
[2021-01-29] MEDS: Metoprolol(XL)Succ 25 MG Tablet PO (18:22)
[2021-01-29] MEDS: Meclizine 12.5 MG Tablet PO (19:15)
[2021-01-29] MEDS: Cefazolin 1 GM/50 ML BAG IV (20:02)
[2021-01-29 21:17] LABS: Hematocrit 42.2 % (40-54)
[2021-01-29] MEDS: Pravastatin 40 MG Tablet PO (22:31)
[2021-01-29] MEDS: Senna/Docusate Sodium 1 Tablet 2 TABLET PO (22:31)
[2021-01-29] MEDS: Doxycycline 100 MG CAPSULE PO (22:31)
[2021-01-30 02:23] VITALS: BP 124/67; PULSE 71; RESP 18; TEMP 36.5; O2SAT 95
[2021-01-30] MEDS: Lactated Ringers 1,000 ML 125 ML IV (02:29)
[2021-01-30] MEDS: Acetaminophen 500 MG Tablet 1000 MG PO (05:23)
[2021-01-30] MEDS: Cefazolin 1 GM/50 ML BAG IV (05:24)
--- NOTE | 2021-01-30 07:24 | PCM.PN.ORT ---
Patient Problems: Active and Suspected Problems (Last Reviewed 01/29/21 @ 18:21 by Saira Johnston, HEADER DOCK-C) S/P revision of total hip (Acute) Subjective: The patient was sitting in bed upon examination. Patient denies any chest pain, shortness of breath, dizziness, lightheadedness, nausea or vomiting, or calf pain. Pain is controlled on medications. No adverse overnight events. Patient states he had some dizziness but this has resolved. Overall he is very pleased with outcome of surgery. Pain is minimal. He is only requiring Tylenol for pain control. Objective: Vital signs stable and afebrile. Patient is able to plantarflex and dorsiflex actively. Sensation is intact to light touch to saphenous, sural, superficial and deep peroneal, and tibial distribution. Dressing is clean dry and intact. Negative Homans bilaterally, negative signs and symptoms of DVT. - Physical Exam Vitals/I&O's: Vital Signs Temp Pulse Resp BP Pulse Ox 97.7 F L 71 18 124/67 H 95 01/30/21 02:23 01/30/21 02:23 01/30/21 02:23 01/30/21 02:23 01/30/21 02:23 Oxygen Flow Rate (L/min) 6 Oxygen Delivery Method Room Air Weight: 110.8 kg Body Mass Index (BMI) 34.0 Finger Stick Blood Glucose 127 Intake and Output for Last 24 Hours 01/28/21 01/29/21 01/30/21 23:59 23:59 23:59 Intake Total 4176.5 / 4176.5 2049 / 2049 Output Total 500 / 500 650 / 650 Balance 3676.5 / 3676.5 1400 / 1400 General: Alert, Oriented x3, Cooperative, No apparent distress Microbiology Past 72 Hours 01/28/21 09:00 Interface Orders SARS-CoV-2 Antigen (Rapid) - Final Laboratory Results 01/29/21 10:19: POC Glucose 123 H 01/29/21 21:09: Hgb 14.0, Hct 42.2 Current Medications Acetaminophen (Acetaminophen 500 Mg Tablet) 1,000 mg PO Q8 [facility] Last Admin: 01/30/21 05:23 Dose: 1,000 mg Documented by: Amlodipine Besylate (Amlodipine 2.5 Mg Tablet) 2.5 mg PO DAILY [facility] Clopidogrel Bisulfate (Clopidogrel Bisulfate 75 Mg Tablet) 75 mg PO DAILY [facility] Doxycycline Monohydrate (Doxycycline 100 Mg Capsule) 100 mg PO BID [facility] Last Admin: 01/29/21 22:31 Dose: 100 mg Documented by: Enteral Nutritional Formula (Ensure Surgery 237 Ml Liquid) 237 ml PO TIDCM [facility] Last Admin: 01/29/21 18:21 Dose: Not Given Documented by: Famotidine (Famotidine 20 Mg Tablet) 20 mg PO DAILY [facility] Folic Acid (Folic Acid 1 Mg Tablet) 1 mg PO DAILY@0800 [facility] Hydrochlorothiazide (Hydrochlorothiazide 12.5mg) 12.5 mg PO DAILY [facility] Lactated Ringer's () 1,000 mls @ 125 mls/hr IV .Q8H [facility] Last Admin: 01/30/21 02:29 Dose: 125 mls/hr Documented by: Sodium Chloride () 250 mls @ 15 mls/hr IV .[id number] PRN PRN Reason: Saline Flush Sodium Chloride () 250 mls @ 15 mls/hr IV .[id number] PRN PRN Reason: Additional IVPB Infusion Insulin Human Lispro (Insulin Lispro 100 Unit/Ml Insuln.Pen) 1 - 6 unit SC Q4H PRN PRN; Protocol PRN Reason: BG>/= 180, SEE PROTOCOL Isosorbide Mononitrate (Isosorbide Mononitrate 60 Mg Tablet) 60 mg PO QAM [facility] Ketorolac Tromethamine (Ketorolac 15 Mg/Ml Vial) 15 mg IV Q6H PRN PRN PRN Reason: Pain Score 1-5 Stop: 01/30/21 19:16 Lisinopril (Lisinopril 10 Mg Tablet) 10 mg PO DAILY [facility] Meclizine HCl (Meclizine 12.5 Mg Tablet) 12.5 mg PO 4X/DAY PRN PRN PRN Reason: dizziness/vertigo Metoprolol Succinate (Metoprolol(Xl)Succ 25 Mg Tablet) 25 mg PO DINNER [facility] Last Admin: 01/29/21 18:22 Dose: 25 mg Documented by: Morphine Sulfate (Morphine 2 Mg/Ml Syringe) 2 - 4 mg IV Q2H PRN PRN PRN Reason: Pain Score 4-10 Multivitamins (Multivitamins,Therapeutic Tablet) [facility] Ondansetron HCl (Ondansetron 4 Mg/2 Ml Vial) 4 mg IV Q8H PRN PRN PRN Reason: NAUSEA Oxycodone HCl (Oxycodone 5 Mg Tablet) 5 - 10 mg PO Q4H PRN PRN PRN Reason: Pain Score 4-10 Pravastatin Sodium (Pravastatin 40 Mg Tablet) 40 mg PO QHS [facility] Last Admin: 01/29/21 22:31 Dose: 40 mg Documented by: Promethazine HCl (Promethazine 25 Mg/Ml Syringe) 12.5 mg IM Q6H PRN PRN; Protocol PRN Reason: NAUSEA/VOMITING Rivaroxaban (Rivaroxaban 15 Mg Tablet) 15 mg PO DAILY [facility] Senna/Docusate Sodium (Senna/Docusate Sodium 1 Tablet) 2 tablet PO BID [facility] Last Admin: 01/29/21 22:31 Dose: 2 tablet Documented by: Sodium Chloride (0.9% Saline Lock 10 Ml Syringe) 10 - 40 ml IV UD PRN PRN Reason: SALINE FLUSH Medical Necessity - Tobacco Use Smoking Status: Never smoker Tobacco Use: Non-smoker Assessment/Plan All Active Problems (Last Reviewed 01/29/21 @ 18:21 by Saira Johnston, HEADER DOCK-C) S/P revision of total hip (Acute) History of left heart catheterization (Resolved 01/08/16) Colon cancer (Resolved) Acute bronchitis (Resolved) Earache on left (Resolved) Knee pain (Resolved) 1. 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 Continue Pain Medications: Patient has only been requiring Tylenol. Oxycodone is for breakthrough pain. 3. DVT Prophylaxis: Patient has been placed back on his Xarelto 4. PT/OT: Weightbearing as tolerated 5. H & H: Lab work has yet to be obtained today. Yesterday's H&H was 14.0/42.2, currently asymptomatic. 6. Continue postoperative medical management per medicine 7. Continue antibiotics while following cultures: Currently on doxycycline for 1 week postoperatively. All cultures are pending 8. Encouraged Incentive Spirometry 9. Disposition: Patient is doing very well postoperatively. At this time plan will be for possible discharge home today as long as patient is medically stable, tolerates physical therapy, and pain is well controlled. Prescriptions will be E scribed to [facility] in [facility]. Patient will follow-up per postop instructions. Patient has physical therapy established. Patient wishes to only proceed with Tylenol for primary pain control. I explained to him that I will put a oxycodone prescription on his chart and only get filled if needed. I have reviewed the [place] Automated Rx Reporting System (OARRS) report for this patient for refill pattern and other prescriber involvement as part of the appropriate surveillance for the provision of acute and chronic controlled medications. The report was requested and reviewed on the date of this entry and was considered in the prescribing process.
--- NOTE | 2021-01-30 07:43 | PCM.DC.THR ---
Discharge Diet: No Restrictions Discharge Activity: May Not Drive - while taking narcotic pain medications. May shower in (days): 1 - Dressing must be intact to skin. Turn dressing away from water Ice area for (Minutes): 20 - Every 1-2 hours while awake Weight Bearing Status: Weight bearing as tolerated Elevate: Operative Extremity Additional Activity Instructions:: Wear elastic stockings for 2 weeks. DO NOT use alcohol with narcotic pain medication. DO NOT make important decisions while taking narcotic medication. If you have problems with taking your medication (rash, itching, nausea, etc.) call the office at once. Call your doctor if your incision/area has: Increased Pain/ Swelling, Increased Redness, Foul Smelling Discharge Call your doctor if you observe: Fever of 101 or Higher Remove Dressing in (days):: 4 - Okay to remove dressing on February 03, 2021 Additional Instructions: Follow [facility] Post-op Instructions. Once postoperative dressing has been removed only use gentle soap and water over the incision. Do not use any ointments, Neosporin, salves, alcohol pads over the incision for 6 weeks postoperatively. Do not submerge underwater for 6 weeks postoperatively. Allergies/Adverse Reactions: Allergies Sulfa (Sulfonamide Antibiotics) Allergy (Verified 01/29/21 10:21) Rash codeine Adverse Reaction (Verified 01/29/21 10:21) Nausea ranolazine [From Ranexa] Adverse Reaction (Verified 01/29/21 10:21) I just did not like it. Medications to take at Discharge Folic Acid 0.4 mg PO DAILY 08/27/13 Multivitamins,Therapeutic [Multivitamin] 1 tab PO DAILY 08/27/13 pyridoxine (vitamin B6) 100 mg tablet 100 mg PO QDAY 01/18/18 sour dos santos extract 1,000 mg capsule 1,000 mg PO DAILY 04/27/18 rivaroxaban 15 mg tablet 15 mg PO DAILY tab 12/06/20 Acetaminophen/Diphenhydramine [Tylenol Pm Ex-Strength Caplet] 1 ea PO QHS 12/12/20 Metoprolol Succinate [Toprol Xl] 25 mg PO DINNER 12/12/20 Zinc 50 mg PO DAILY 12/17/20 Amlodipine Besylate 2.5 mg PO DAILY 01/15/21 Clopidogrel Bisulfate [Clopidogrel] 75 mg PO DAILY 01/15/21 Isosorbide Mononitrate [Isosorbide Mononitrate ER] 60 mg PO QAM 01/15/21 Lisinopril/Hydrochlorothiazide [Lisinopril-Hctz 10-12.5 mg Tab] 0.5 tab PO DAILY 01/15/21 Pravastatin Sodium 40 mg PO QHS 01/15/21 Acetaminophen [Tylenol] 1,000 mg PO Q8 14 Days tablet 01/30/21 Doxycycline 100 mg PO BID #12 capsule 01/30/21 Oxycodone [Oxyir] 5 - 10 mg PO Q4H PRN PRN 3 Days #24 tablet 01/30/21 Senna/Docusate Sodium [Senokot-S] 2 tablet PO BID #14 tablet 01/30/21 The following prescriptions were given: Doxycycline 100 mg PO BID #12 capsule Transmission Status: [facility] Oxycodone [Oxyir] 5 - 10 mg PO Q4H PRN PRN 3 Days #24 tablet PRN Reason: Pain Score 4-10 Prescription Printed Senna/Docusate Sodium [Senokot-S] 2 tablet PO BID #14 tablet Transmission Status: Pending to [id number] Primary Care Physician: Elijah Rodríguez MD [Primary Care Provider] - Test Results: Test results from this visit will be discussed in further detail at your follow-up appointment, if applicable. Please Follow Up With: Physical Therapy When: 02/03/21 @ 9:30 am Please Follow Up With: Deven Vega PA-C When: 02/12/21 @ 9:15 am
[2021-01-30 08:13] LABS: Hematocrit 43.7 % (40-54); Hemoglobin 14.6 g/dL (13.0-16.5); Mean Corp Hgb Conc 33.4 g/dL (32-36); Mean Corpuscular Volume 95.8 fL (80-94); Mean Platelet Vol. 9.5 fl (6.2-12.0); Platelet Count 244 K/mm3 (150-450); RBC Distribution Width CV 12.2 % (11.6-14.6); RBC Distribution Width SD 42.9 fl (35.1-43.9); Red Blood Count 4.56 M/mm3 (4.6-6.2); White Blood Count 22.3 K/mm3 (4.4-11.0)
[2021-01-30 08:25] LABS: Anion Gap 9 (5-15); BUN 18 mg/dL (7-18); BUN/Creat Ratio 13.4 RATIO (10-20); Chloride 105 mmol/L (98-107); Creatinine, Serum 1.34 mg/dL (0.70-1.30); EST Glomerular Filtration Rate 55 mL/min (>60); Est Glom Filt Rate - Afr Amer 67 mL/min (>60); Estimated Creatinine Clearance 51.51 ml/min; Glucose 160 mg/dL (74-106); Potassium 3.9 mmol/L (3.5-5.1); Sodium Level 139 mmol/L (136-145)
[2021-01-30 10:25] VITALS: BP 113/66; PULSE 72; RESP 18; TEMP 36.7; O2SAT 97
[2021-01-30] MEDS: Rivaroxaban 15 MG Tablet PO (10:42)
[2021-01-30] MEDS: Isosorbide Mononitrate 60 MG Tablet PO (10:43)
[2021-01-30] MEDS: Doxycycline 100 MG CAPSULE PO (10:43)
[2021-01-30] MEDS: Famotidine 20 MG Tablet PO (10:43)
[2021-01-30] MEDS: amLODIPine 2.5 MG Tablet PO (10:43)
[2021-01-30] MEDS: Folic Acid 1 MG Tablet PO (10:43)
[2021-01-30] MEDS: Multivitamins,Therapeutic Tablet 1 TABLET PO (10:43)
[2021-01-30] MEDS: Senna/Docusate Sodium 1 Tablet 2 TABLET PO (10:43)
[2021-01-30] MEDS: hydroCHLOROthiazide 12.5mg 12.5 MG PO (10:43)
--- NOTE | 2021-01-30 10:45 | CASEMGMT ---
Addendum entered by Evelyn Heranndez 01/30/21 11:03: Pt has 4 steps to enter home. States there is a rail and has no difficulty with steps. Original Note: [facility] Assessment: Face to Face with pt for initial transition planning/care coordination assessment. RN SILVINO introduced self and role at [facility], pt voices understanding and consents to assessment. Pt is A/O x4 and answers all questions appropriately at this time. Pt sitting up in chair, dressed and two nurses in room. Care providers, pharmacy, and demographics verified/updated. Admitting Dx: L Total Hip Revision PCP: Dr. Rodríguez Specialists: Dr. Jerry Fournier, ortho; Dr. Yu and Dr. Grossman, uro; Dr. Smith, onc; Dr. Andujar, cardio; Dr. Garza, eyes Preferred Pharmacy: [facility] Insurance: [facility] Prescription Benefit: yes, [employer] LW/HPOA: Pt reports he does have a LW and it is on file at [facility]. He has a DPOA which is his Chloe but he did not bring in to scan to chart. Pt states he will bring when he comes back to have lab work done. LNOK: Chloe Living Arrangements: Pt lives with in a two story house, only uses the main floor. Pt was I in ADL's prior to surgery. Denies concerns at home. Transportation: Pt previously drove. Pt will drive to appts until he can return to driving. DME/HHC/SNF: Pt has a walker, cane, crutches and high rise toilet at home. Denies any need for further DME. Pt has not had HHC or any SNF stays. Pt is set up with [facility] for outpt therapy. Pt is very pleasant gentleman. Pt states no concerns with going home at time of dc. Pt states no further concerns/needs. CM to follow. Advised pt to ask CM if any further question/concerns/needs arise, voices understanding. Pt Goal: Home Plan: Home with family support, fu plans in place.
[2021-01-30] MEDS: Clopidogrel Bisulfate 75 MG Tablet PO (11:16)
[2021-01-30] MEDS: Lisinopril 10 MG Tablet PO (11:16)
--- NOTE | 2021-01-30 11:51 | PCM.DC ---
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 May shower in (days): 1 - Dressing must be intact to skin. Turn dressing away from water Ice area for (Minutes): 20 - Every 1-2 hours while awake Weight Bearing Status: Weight bearing as tolerated Keep extremity elevated above heart level: Operative Extremity Additional Activity Instructions:: Wear elastic stockings for 2 weeks. DO NOT use alcohol with narcotic pain medication. DO NOT make important decisions while taking narcotic medication. If you have problems with taking your medication (rash, itching, nausea, etc.) call the office at once. Call your doctor if your incision/area has: Increased Pain/ Swelling, Increased Redness, Foul Smelling Discharge Call your doctor if you observe: Fever of 101 or Higher Remove Dressing in (days):: 4 - Okay to remove dressing on February 03, 2021 Allergies/Adverse Reactions: Allergies Sulfa (Sulfonamide Antibiotics) Allergy (Verified 01/29/21 10:21) Rash codeine Adverse Reaction (Verified 01/29/21 10:21) Nausea ranolazine [From Ranexa] Adverse Reaction (Verified 01/29/21 10:21) I just did not like it. Medications to take at Discharge Folic Acid 0.4 mg PO DAILY 08/27/13 Multivitamins,Therapeutic [Multivitamin] 1 tab PO DAILY 08/27/13 pyridoxine (vitamin B6) 100 mg tablet 100 mg PO QDAY 01/18/18 sour dos santos extract 1,000 mg capsule 1,000 mg PO DAILY 04/27/18 rivaroxaban 15 mg tablet 15 mg PO DAILY tab 12/06/20 Acetaminophen/Diphenhydramine [Tylenol Pm Ex-Strength Caplet] 1 ea PO QHS 12/12/20 Metoprolol Succinate [Toprol Xl] 25 mg PO DINNER 12/12/20 Zinc 50 mg PO DAILY 12/17/20 Amlodipine Besylate 2.5 mg PO DAILY 01/15/21 Clopidogrel Bisulfate [Clopidogrel] 75 mg PO DAILY 01/15/21 Isosorbide Mononitrate [Isosorbide Mononitrate ER] 60 mg PO QAM 01/15/21 Lisinopril/Hydrochlorothiazide [Lisinopril-Hctz 10-12.5 mg Tab] 0.5 tab PO DAILY 01/15/21 Pravastatin Sodium 40 mg PO QHS 01/15/21 Acetaminophen [Tylenol] 1,000 mg PO Q8 14 Days tablet 01/30/21 Doxycycline 100 mg PO BID #12 capsule 01/30/21 Oxycodone [Oxyir] 5 - 10 mg PO Q4H PRN PRN 3 Days #24 tablet 01/30/21 Senna/Docusate Sodium [Senokot-S] 2 tablet PO BID #14 tablet 01/30/21 The following prescriptions were given: Doxycycline 100 mg PO BID #12 capsule Transmission Status: Received by [facility] Oxycodone [Oxyir] 5 - 10 mg PO Q4H PRN PRN 3 Days #24 tablet PRN Reason: Pain Score 4-10 Prescription Printed Senna/Docusate Sodium [Senokot-S] 2 tablet PO BID #14 tablet Transmission Status: Received by [facility]OO[facility] Primary Care Physician: Elijah Rodríguez MD [Primary Care Provider] - Please follow up with your Primary Care Physician in: 1-2 weeks Test Results: Test results from this visit will be discussed in further detail at your follow-up appointment, if applicable. Please Follow Up With: Physical Therapy When: 02/03/21 @ 9:30 am Please Follow Up With: Deven Vega PA-C When: 02/12/21 @ 9:15 am Proposed Discharge Date: 01/30/21
--- NOTE | 2021-01-30 11:54 | DS.PCM_ITS ---
Discharge Date and Diagnosis - Problem List Patient Problems: Active and Suspected Problems (Last Reviewed 01/29/21 @ 18:21 by RENEE Yuen) S/P revision of total hip (Acute) Date of Admission: 12/20/20 - Primary Discharge Diagnosis Acute Problems: Active Problems (Last Reviewed 01/29/21 @ 18:21 by RENEE Yuen) S/P revision of total hip (Acute) - Secondary Discharge Diagnosis Chronic Problems: Chronic Problems (Last Reviewed 01/29/21 @ 18:21 by Saira Johnston NP-C) Atherosclerotic heart disease of [place] coronary artery with other forms of angina pectoris (Chronic) Hyperlipidemia (Chronic) Essential hypertension (Chronic) Hypertriglyceridemia (Chronic) Asthma (Chronic) WENDY (obstructive sleep apnea) (Chronic) COPD (chronic obstructive pulmonary disease) (Chronic) Abnormal pulmonary function test (Chronic) Arthritis (Chronic) Hemorrhoids (Chronic) History of CVA (cerebrovascular accident) (Chronic) Obesity (Chronic) Transient ischemic attack (Chronic) CKD (chronic kidney disease) stage 3, GFR 30-59 ml/min (Chronic) Hospital Course and Treatment Operations: None Summary of Care Provided: The patient is a 75 year old M [] Patient Problems: Active and Suspected Problems (Last Reviewed 01/29/21 @ 18:21 by Saira Johnston NP-[place]) S/P revision of total hip (Acute) - Physical Exam Vitals/I&O's: Vital Signs Temp Pulse Resp BP Pulse Ox 98.1 F 72 18 113/66 97 01/30/21 10:25 01/30/21 10:25 01/30/21 10:25 01/30/21 10:25 01/30/21 10:25 Oxygen Flow Rate (L/min) 6 Oxygen Delivery Method Room Air Weight: 244 lb 4.355 oz Body Mass Index (BMI) 34.0 Finger Stick Blood Glucose 127 Intake and Output for Last 24 Hours 01/28/21 01/29/21 01/30/21 23:59 23:59 23:59 Intake Total 4176.5 / 4176.5 2897.92 / 2897.92 Output Total 500 / 500 1150 / 1150 Balance 3676.5 / 3676.5 1747.92 / 1747.92 Microbiology Past 72 Hours 01/28/21 09:00 Interface Orders SARS-CoV-2 Antigen (Rapid) - Final Laboratory Results 01/29/21 21:09: Hgb 14.0, Hct 42.2 01/30/21 08:02: WBC 22.3 H, RBC 4.56 L, Hgb 14.6, Hct 43.7, MCV 95.8 H, MCH 32. 0, MCHC 33.4, RDW Std Deviation 42.9, RDW Coeff of Guzman 12.2, Plt Count 244, MPV 9.5 01/30/21 08:02: Sodium 139, Potassium 3.9, Chloride 105, Carbon Dioxide 25.0, Anion Gap 9, BUN 18, Creatinine 1.34 H, Estim Creat Clear Calc 51.51, Est GFR (MDRD) Af Amer 67, Est GFR (MDRD) Non-Af 55 L, BUN/Creatinine Ratio 13.4, Glucose 160 H, Calcium 9.0 Current Medications Acetaminophen (Acetaminophen 500 Mg Tablet) 1,000 mg PO Q8 [facility] Last Admin: 01/30/21 05:23 Dose: 1,000 mg Documented by: Amlodipine Besylate (Amlodipine 2.5 Mg Tablet) 2.5 mg PO DAILY [facility] Last Admin: 01/30/21 10:43 Dose: 2.5 mg Documented by: Clopidogrel Bisulfate (Clopidogrel Bisulfate 75 Mg Tablet) 75 mg PO DAILY [facility] Last Admin: 01/30/21 11:16 Dose: 75 mg Documented by: Doxycycline Monohydrate (Doxycycline 100 Mg Capsule) 100 mg PO BID [facility] Last Admin: 01/30/21 10:43 Dose: 100 mg Documented by: Enteral Nutritional Formula (Ensure Surgery 237 Ml Liquid) 237 ml PO TIDCM [facility] Last Admin: 01/30/21 10:38 Dose: Not Given Documented by: Famotidine (Famotidine 20 Mg Tablet) 20 mg PO DAILY [facility] Last Admin: 01/30/21 10:43 Dose: 20 mg Documented by: Folic Acid (Folic Acid 1 Mg Tablet) 1 mg PO DAILY@0800 [facility] Last Admin: 01/30/21 10:43 Dose: 1 mg Documented by: Hydrochlorothiazide (Hydrochlorothiazide 12.5mg) 12.5 mg PO DAILY [facility] Last Admin: 01/30/21 10:43 Dose: 12.5 mg Documented by: Lactated Ringer's () 1,000 mls @ 125 mls/hr IV .Q8H [facility] Last Infusion: 01/30/21 09:16 Dose: Infused Documented by: Sodium Chloride () 250 mls @ 15 mls/hr IV .[id number] PRN PRN Reason: Saline Flush Sodium Chloride () 250 mls @ 15 mls/hr IV .[id number] PRN PRN Reason: Additional IVPB Infusion Insulin Human Lispro (Insulin Lispro 100 Unit/Ml Insuln.Pen) 1 - 6 unit SC Q4H PRN PRN; Protocol PRN Reason: BG>/= 180, SEE PROTOCOL Isosorbide Mononitrate (Isosorbide Mononitrate 60 Mg Tablet) 60 mg PO QAM [facility] Last Admin: 01/30/21 10:43 Dose: 60 mg Documented by: Ketorolac Tromethamine (Ketorolac 15 Mg/Ml Vial) 15 mg IV Q6H PRN PRN PRN Reason: Pain Score 1-5 Stop: 01/30/21 19:16 Lisinopril (Lisinopril 10 Mg Tablet) 10 mg PO DAILY [facility] Last Admin: 01/30/21 11:16 Dose: 10 mg Documented by: Meclizine HCl (Meclizine 12.5 Mg Tablet) 12.5 mg PO 4X/DAY PRN PRN PRN Reason: dizziness/vertigo Metoprolol Succinate (Metoprolol(Xl)Succ 25 Mg Tablet) 25 mg PO DINNER [facility] Last Admin: 01/29/21 18:22 Dose: 25 mg Documented by: Morphine Sulfate (Morphine 2 Mg/Ml Syringe) 2 - 4 mg IV Q2H PRN PRN PRN Reason: Pain Score 4-10 Multivitamins ([facility],Therapeutic Tablet) [facility] Admin: 01/30/21 10:43 Dose: 1 tablet Documented by: Ondansetron HCl (Ondansetron 4 Mg/2 Ml Vial) 4 mg IV Q8H PRN PRN PRN Reason: NAUSEA Oxycodone HCl (Oxycodone 5 Mg Tablet) 5 - 10 mg PO Q4H PRN PRN PRN Reason: Pain Score 4-10 Pravastatin Sodium (Pravastatin 40 Mg Tablet) 40 mg PO QHS [facility] Last Admin: 01/29/21 22:31 Dose: 40 mg Documented by: Promethazine HCl (Promethazine 25 Mg/Ml Syringe) 12.5 mg IM Q6H PRN PRN; Protocol PRN Reason: NAUSEA/VOMITING Rivaroxaban (Rivaroxaban 15 Mg Tablet) 15 mg PO DAILY [facility] Last Admin: 01/30/21 10:42 Dose: 15 mg Documented by: Senna/Docusate Sodium (Senna/Docusate Sodium 1 Tablet) 2 tablet PO BID [facility] Last Admin: 01/30/21 10:43 Dose: 2 tablet Documented by: Sodium Chloride (0.9% Saline Lock 10 Ml Syringe) 10 - 40 ml IV UD PRN PRN Reason: SALINE FLUSH Discharge Diet: No Restrictions Discharge Activity: May Not Drive - while taking narcotic pain medications. May shower in (days): 1 - Dressing must be intact to skin. Turn dressing away from water Ice area for (Minutes): 20 - Every 1-2 hours while awake Weight Bearing Status: Weight bearing as tolerated Keep extremity elevated above heart level: Operative Extremity Additional Activity Instructions:: Wear elastic stockings for 2 weeks. DO NOT use alcohol with narcotic pain medication. DO NOT make important decisions while taking narcotic medication. If you have problems with taking your medication (rash, itching, nausea, etc.) call the office at once. Call your doctor if your incision/area has: Increased Pain/ Swelling, Increased Redness, Foul Smelling Discharge Call your doctor if you observe: Fever of 101 or Higher Remove Dressing in (days):: 4 - Okay to remove dressing on February 03, 2021 Home Medications: Medications to take at Discharge Folic Acid 0.4 mg PO DAILY 08/27/13 Multivitamins,Therapeutic [Multivitamin] 1 tab PO DAILY 08/27/13 pyridoxine (vitamin B6) 100 mg tablet 100 mg PO QDAY 01/18/18 sour dos santos extract 1,000 mg capsule 1,000 mg PO DAILY 04/27/18 rivaroxaban 15 mg tablet 15 mg PO DAILY tab 12/06/20 Acetaminophen/Diphenhydramine [Tylenol Pm Ex-Strength Caplet] 1 ea PO QHS 12/12/20 Metoprolol Succinate [Toprol Xl] 25 mg PO DINNER 12/12/20 Zinc 50 mg PO DAILY 12/17/20 Amlodipine Besylate 2.5 mg PO DAILY 01/15/21 Clopidogrel Bisulfate [Clopidogrel] 75 mg PO DAILY 01/15/21 Isosorbide Mononitrate [Isosorbide Mononitrate ER] 60 mg PO QAM 01/15/21 Lisinopril/Hydrochlorothiazide [Lisinopril-Hctz 10-12.5 mg Tab] 0.5 tab PO DAILY 01/15/21 Pravastatin Sodium 40 mg PO QHS 01/15/21 Acetaminophen [Tylenol] 1,000 mg PO Q8 14 Days tablet 01/30/21 Doxycycline 100 mg PO BID #12 capsule 01/30/21 Oxycodone [Oxyir] 5 - 10 mg PO Q4H PRN PRN 3 Days #24 tablet 01/30/21 Senna/Docusate Sodium [Senokot-S] 2 tablet PO BID #14 tablet 01/30/21 Following Prescriptions Were Given to Patient: Doxycycline 100 mg PO BID #12 capsule Transmission Status: Received by [employer] Oxycodone [Oxyir] 5 - 10 mg PO Q4H PRN PRN 3 Days #24 tablet PRN Reason: Pain Score 4-10 Prescription Printed Senna/Docusate Sodium [Senokot-S] 2 tablet PO BID #14 tablet Transmission Status: Received by [employer] Primary Care Physician: Elijah Rodríguez MD [Primary Care Provider] - Please follow up with your Primary Care Physician in: 1-2 weeks Please Follow Up With: Physical Therapy When: 02/03/21 @ 9:30 am Please Follow Up With: Deven Vega PA-C When: 02/12/21 @ 9:15 am Additional Instructions: Follow [facility] Post-op Instructions. Once postoperative dressing has been removed only use gentle soap and water over the incision. Do not use any ointments, Neosporin, salves, alcohol pads over the incision for 6 weeks postoperatively. Do not submerge underwater for 6 weeks postoperatively. Medical Necessity - Tobacco Use Smoking Status: Never smoker Tobacco Use: Non-smoker
[2021-01-30 12:19] VITALS: BP 124/65; PULSE 75; RESP 18; TEMP 36.6; O2SAT 98
[2021-01-30] MEDS: Ketorolac 15 MG/ML Vial IV (13:35)
[2021-01-30] MEDS: 0.9% Saline Lock 10 ML Syringe IV (13:36)
--- NOTE | 2021-01-30 17:45 | PCM.PN.HOSP ---
Patient Problems: Active and Suspected Problems (Last Reviewed 01/29/21 @ 18:21 by Saira Johnston, [employer]-C) S/P revision of total hip (Acute) Subjective: Patient seen and examined. He was sitting in his chair and had no complaints. He felt very well and complained of no pain. Review systems otherwise negative. Labs and vitals reviewed. BC is up to 22.3, but is likely reactive. Vitals/I&O's: Vital Signs Temp Pulse Resp BP Pulse Ox 97.9 F 75 18 124/65 H 98 01/30/21 12:19 01/30/21 12:19 01/30/21 12:19 01/30/21 12:19 01/30/21 12:19 Oxygen Flow Rate (L/min) 6 Oxygen Delivery Method Room Air Weight: 244 lb 4.355 oz Body Mass Index (BMI) 34.0 Finger Stick Blood Glucose 127 Intake and Output for Last 24 Hours 01/28/21 01/29/21 01/30/21 23:59 23:59 23:59 Intake Total 4176.5 / 4176.5 2897.92 / 2897.92 Output Total 500 / 500 1150 / 1150 Balance 3676.5 / 3676.5 1747.92 / 1747.92 General: Alert, Oriented x3, Cooperative HEENT: Atraumatic, PERRLA, EOMI, Normocephalic Neck: Supple, No JVD, Negative Carotid Bruits Lungs: Clear to auscultation, Normal air movement Cardiovascular: Regular rate, No murmurs Abdomen: Bowel Sounds Present, Soft, Non Tender Extremities: No edema, Capillary Refill Less than 3 Seconds Skin: No rashes, No breakdown, - - intact dressing over posterior left hip Musculoskeletal: No Tenderness to Palpation of Joints or Extremities Neurological: Cranial nerves II-XII grossly intact Psych/Mental Status: Normal Affect, Appropriate, Alert and oriented to time, place, person, mood and affect Microbiology Past 72 Hours 01/29/21 12:30 Wound - Hip Gram Stain - Final 01/29/21 12:30 Wound - Hip Gram Stain - Final 01/29/21 12:30 Wound - Hip Wound Culture - Preliminary No growth-Final to follow 01/29/21 12:30 Wound - Hip Gram Stain - Final 01/28/21 09:00 Interface Orders SARS-CoV-2 Antigen (Rapid) - Final Laboratory Results 01/29/21 21:09: Hgb 14.0, Hct 42.2 01/30/21 08:02: WBC 22.3 H, RBC 4.56 L, Hgb 14.6, Hct 43.7, MCV 95.8 H, MCH 32.0, MCHC 33.4, RDW Std Deviation 42.9, RDW Coeff of Guzman 12.2, Plt Count 244, MPV 9.5 01/30/21 08:02: Sodium 139, Potassium 3.9, Chloride 105, Carbon Dioxide 25.0, Anion Gap 9, BUN 18, Creatinine 1.34 H, Estim Creat Clear Calc 51.51, Est GFR (MDRD) Af Amer 67, Est GFR (MDRD) Non-Af 55 L, BUN/Creatinine Ratio 13.4, Glucose 160 H, Calcium 9.0 Medical Necessity - Tobacco Use Smoking Status: Never smoker Tobacco Use: Non-smoker Assessment/Plan All Active Problems (Last Reviewed 01/29/21 @ 18:21 by Saira Johnston, [employer]-C) S/P revision of total hip (Acute) History of left heart catheterization (Resolved 01/08/16) Colon cancer (Resolved) Acute bronchitis (Resolved) Earache on left (Resolved) Knee pain (Resolved) #Osteoarthritis s/p revision of left hip Today's postop day 1. Ambulating without difficulty and has no complaints. Pain controlled well with current pain meds. #Hypertension: On hydrochlorothiazide, metoprolol, lisinopril, Norvasc and Imdur. #Hyperlipidemia: On pravastatin #COPD: Not in exacerbation. Breathing treatments of bronchodilators. #WENDY: On BiPAP. #CAD: Was on Plavix and Xarelto. This will be resumed today. #CKD stage IIIb: Stable. #GERD: On Pepcid Disposition: Patient for discharge today per primary service orthopedics. Inpatient E&M: [id number] Subs Hosp L2
== END 2021-01-30 14:00 | disposition home or self-care (01) | DRG 468 ==
LOC: ACINP 09:52 → MS3 14:13
PROVIDERS: Anesthesiology; Internal Medicine; Admitting Provider Specialist; PCP Family Medicine; Referring Provider Specialist; Visit Provider Student in an Organized Health Care Education/Training Program
PROC: 0SRS0JZ Replacement of Left Hip Joint, Femoral Surface with Synthetic Substitute, Open Approach (ICD-10-PCS; CPT 27134; principal; 2021-01-29 12:05)
DX: M25.352 Other instability, left hip (principal); M24.452 Recurrent dislocation, left hip; M21.70 Unequal limb length (acquired), unspecified site; Z20.822 Contact with and (suspected) exposure to COVID-19; I12.9 Hypertensive chronic kidney disease with stage 1 through stage 4 chronic kidney disease, or unspecified chronic kidney disease; N18.32 Chronic kidney disease, stage 3b; R33.9 Retention of urine, unspecified; I25.118 Atherosclerotic heart disease of native coronary artery with other forms of angina pectoris; J44.9 Chronic obstructive pulmonary disease, unspecified; R42 Dizziness and giddiness; M48.061 Spinal stenosis, lumbar region without neurogenic claudication; M54.10 Radiculopathy, site unspecified; E78.5 Hyperlipidemia, unspecified; E78.1 Pure hyperglyceridemia; M19.90 Unspecified osteoarthritis, unspecified site; K21.9 Gastro-esophageal reflux disease without esophagitis; G47.31 Primary central sleep apnea; G47.33 Obstructive sleep apnea (adult) (pediatric); E66.9 Obesity, unspecified; Z68.34 Body mass index [BMI] 34.0-34.9, adult; Z79.01 Long term (current) use of anticoagulants; Z96.642 Presence of left artificial hip joint; Z79.02 Long term (current) use of antithrombotics/antiplatelets; Z79.899 Other long term (current) drug therapy; Z86.73 Personal history of transient ischemic attack (TIA), and cerebral infarction without residual deficits; Z86.718 Personal history of other venous thrombosis and embolism; Z85.038 Personal history of other malignant neoplasm of large intestine
CPT/HCPCS: 36415; 73502; 80048; 80076; 82962; 83735; 85014; 85018; 85025; 85027; 85610; 85730; 87015; 87070; 87075; 87081; 87102; 87116; 87176; 87205; 87206; 87426; 97110; 97162; 97166; 97530; 97535; 99251; C1776; C9803; J7120; A4216; G0463; J2405

== ENCOUNTER → 2021-03-31 08:48 | Outpatient (CLI) | payer MEDICARE, SELFPAY ==
[2021-01-29 15:53] VITALS: BMI 34.0
[2021-03-31 09:45] LABS: AST(SGOT) 31 U/L (15-37); Alanine Aminotransfer ALT/SGPT 36 U/L (16-61); Albumin, Serum 3.6 g/dL (3.2-5.0); Alkaline Phosphatase 95 U/L (45-117); Anion Gap 6 (5-15); BUN 25 mg/dL (7-18); Bilirubin, Direct 0.19 mg/dL (0.00-0.30); Calcium,Total 9.1 mg/dL (8.5-10.1); Chloride 106 mmol/L (98-107); Cholesterol 137 mg/dL (200); Creatinine, Serum 1.19 mg/dL (0.70-1.30); EST Glomerular Filtration Rate 63 mL/min (>60); Est Glom Filt Rate - Afr Amer 77 mL/min (>60); Globulin 3.7 g/dL (2.2-4.2); Glucose 102 mg/dL (74-106); High Density Lipoprotein 32 mg/dL; Potassium 3.9 mmol/L (3.5-5.1); Protein, Total 7.3 g/dL (6.4-8.2); Sodium Level 138 mmol/L (136-145); Triglycerides 272 mg/dL; Very Low Density Lipoprotein 54 mg/dL (5-40)
== END ==
PROVIDERS: PCP Family Medicine; Referring Provider Internal Medicine Cardiovascular Disease; Visit Provider Internal Medicine Cardiovascular Disease
DX: I25.118 Atherosclerotic heart disease of native coronary artery with other forms of angina pectoris (principal)
CPT/HCPCS: 36415; 80048; 80061; 80076

== ENCOUNTER 2022-01-20 10:08 | Outpatient (CLI) | payer MEDICARE, SELFPAY ==
[2022-01-20 11:56] LABS: PSA,Total - Annual Screen 0.93 ng/mL (0.00-4.00)
== END 2022-01-20 23:59 | disposition home or self-care (01) ==
LOC: LAB 10:09
PROVIDERS: PCP Family Medicine; Referring Provider Urology; Visit Provider Urology
DX: Z12.5 Encounter for screening for malignant neoplasm of prostate (principal)
CPT/HCPCS: 36415; 84153; G0103

== ENCOUNTER 2022-02-04 09:40 | Emergency (ER) | payer MEDICARE, SELFPAY ==
[2022-02-04 09:44] VITALS: BP 150/77; PULSE 71; RESP 17; TEMP 36.7; O2SAT 100; BMI 32.8
--- NOTE | 2022-02-04 10:37 | US_ITS ---
STUDY: SCROTUM ULTRASOUND REASON FOR EXAM: Male, 76 years old. Groin pain. TECHNIQUE: Ultrasound evaluation of the scrotum was performed with color Doppler and static boland-scale imaging. COMPARISON: None. FINDINGS: RIGHT TESTICLE INTRATESTICULAR: There is a normal size of the right testicle. The right testicle measures 3.8 cm x 2.5 cm x 1.7 cm. There is a homogenous echotexture. There is normal arterial and normal venous vascularity. There is no demonstrated right testicular mass or cyst. EXTRATESTICULAR: The epididymis is enlarged. The epididymis head measures 1.5 cm x 2 cm x 1.1 cm. There is normal vascularity of the epididymis. There is a well-defined cystic structure within the epididymis, without internal echoes, consistent with an epididymal cyst. This measures 1.1 cm x 1.1 cm x 1 cm. There is no demonstrated hydrocele. There are prominent extratesticular veins consistent with a varicocele. There is no demonstrated extratesticular mass or cyst. LEFT TESTICLE INTRATESTICULAR: There is a normal size of the left testicle. The left testicle measures 4 cm x 3.1 cm x 1.7 cm. There is a homogenous echotexture. There is normal arterial and normal venous vascularity. There is no demonstrated left testicular mass or cyst. EXTRATESTICULAR: The epididymis is normal in size. The epididymis head measures 0.9 cm x 1 cm x 0.8 cm. There is normal vascularity of the epididymis. There is no demonstrated epididymal cystic structure. There is a small hydrocele. There is no demonstrated varicocele. There is no demonstrated extratesticular mass or cyst. US/Testicular with Arterial Flow IMPRESSION: Small right epididymal cyst with varicocele. Small left hydrocele. Electronically Signed: Ozzy Elizabeth MD at 12:09 EDT ,
--- NOTE | 2022-02-04 10:39 | CT_ITS ---
STUDY: CT ABDOMEN AND PELVIS WITHOUT CONTRAST REASON FOR EXAM: Male, 76 years old. Groin pain. History of colon cancer and colectomy. RADIATION DOSAGE (If Supplied By Facility): CTDIvol = ( 17.35 ) mGy, DLP = ( 991.53 ) mGycm TECHNIQUE: Transaxial images were obtained from the dome of the diaphragm to the symphysis pubis without oral contrast, and without intravenous contrast. Sagittal and coronal images were reconstructed. Individualized dose optimization techniques were used for this CT. COMPARISON: Comparison is made with prior examination of 07/24/2013. FINDINGS: The visualized lung bases are unremarkable. Coronary artery calcification. Normal liver. There are small gallstones. Normal spleen. Normal pancreas. There is a small, circumscribed, smooth, low attenuation left adrenal mass, consistent with an adrenal adenoma. This is unchanged. Normal right adrenal gland. There is a 3 mm nonobstructive calculus in the posterior upper pole calyx of the right kidney with over Cortical scar. 3 mm nonobstructive calculus in the midpole calyx of the left kidney. Mild degree of the left renal pelvic dilatation. Normal visualized stomach. Normal small intestine. The patient is status post right hemicolectomy. The appendix is visualized and appears normal. There is scattered atherosclerotic calcification of the abdominal aorta, without a demonstrated aneurysm. Normal inferior vena cava. Normal retroperitoneum. Normal urinary bladder. There is enlargement of the prostate gland. Prostatic calcification. There is a small umbilical hernia containing fat. There are degenerative changes of the visualized lumbar spine. Loss of the normal lumbar lordosis. Status post left total hip replacement. CT/Abdomen/Pelvis without Cont IMPRESSION: Nonobstructive bilateral intrarenal calculi. Stable mild dilatation of the left renal pelvis. Electronically Signed: Ozzy Elizabeth MD at 11:22 EDT ,
[2022-02-04 10:59] LABS: Bacteria 0 SEEN /hpf (None Seen); Mucous, Urine 0 SEEN /hpf (<or=2+); Red Blood Cells-Urine 0 SEEN /hpf (0-5); Squamous Epithelial Cells - UA 0 SEEN /hpf (0-5); White Blood Cells 0 SEEN /hpf (0-5)
[2022-02-04 11:00] LABS: Color, Urine Yellow (Yellow); Glucose, Dipstick Normal (Normal); Ketone-Dipstick Negative (Negative); Leukocyte Esterase-Dipstick Negative /ul (Negative); Nitrite-Dipstick Negative (Negative); Occult Blood-Urine Negative /ul (Negative); Protein-Dipstick Negative (Negative); Urine Bilirubin Dipstick Negative (Negative); Urine Clarity Clear (Clear); Urine Urobilinogen Normal (Normal); Urine pH 6.5 (5.0 - 8.0)
[2022-02-04 12:05] VITALS: BP 111/72; PULSE 68; RESP 18; O2SAT 97
--- NOTE | 2022-02-04 12:29 | EDS_ITS ---
HPI History of Present Illness Chief Complaint: Complaint Informant: patient Narrative Narrative: 76-year-old male presenting with suprapubic pain. He states this started on Wednesday. Pain has been intermittent. He states that he was able to urinate without difficulty but then had burning sensation after urinating. He states currently pain is 1 out of 10. Denies testicular pain. Denies abdominal pain. Denies nausea or vomiting. Denies back pain. Denies fever. Prior similar symptoms: No Recent Illness/Hospitalization: No PFSH PFSH Medical History (Reviewed 01/08/22 @ 17:20 by Corry Tellez ENHANCED ENVIRONMENTAL OPERATOR, ENHANCED ENVIRONMENTAL OPERATOR-C) Abnormal pulmonary function test Arthritis Asthma Atherosclerotic heart disease of [place] coronary artery with other forms of angina pectoris CKD (chronic kidney disease) stage 3, GFR 30-59 ml/min Colon cancer COPD (chronic obstructive pulmonary disease) Earache on left Essential hypertension Hemorrhoids Hip dislocation, left (12/12/20) History of colon cancer History of CVA (cerebrovascular accident) History of dislocation of hip History of nephrolithiasis Hyperlipidemia Hypertriglyceridemia Knee pain Obesity WENDY (obstructive sleep apnea) Shoulder pain Stomach ulcer Transient ischemic attack Home Medications folic acid 0.4 mg PO DAILY 08/27/13 [History Last Taken 11/01/14] multivitamin with folic acid 1 tab PO DAILY 08/27/13 [History Last Taken 11/01/14] pyridoxine (vitamin B6) 100 mg tablet 100 mg PO QDAY 01/18/18 [History Last Taken Unknown] sour emery extract 1,000 mg capsule 1,000 mg PO DAILY 04/27/18 [History Last Taken Unknown] rivaroxaban 15 mg tablet 15 mg PO DAILY tab 12/06/20 [History Last Taken 01/25/21] diphenhydramine-acetaminophen 1 ea PO QHS 12/12/20 [History Last Taken Unknown] zinc 50 mg PO DAILY 12/17/20 [History Last Taken Unknown] amlodipine 2.5 mg tablet 2.5 mg PO DAILY #90 tab 09/01/21 [Rx Last Taken Unknown] clopidogrel 75 mg tablet 75 mg PO DAILY #90 tab 09/01/21 [Rx Last Taken Unknown] isosorbide mononitrate 60 mg tablet,extended release 24 hr 60 mg PO QAM #90 tab 09/01/21 [Rx Last Taken Unknown] lisinopril 10 mg-hydrochlorothiazide 12.5 mg tablet 0.5 tab PO DAILY #45 tab 09/01/21 [Rx Last Taken Unknown] metoprolol succinate 25 mg tablet,extended release 24 hr 25 mg PO DINNER #90 tab 09/01/21 [Rx Last Taken Unknown] pravastatin 40 mg tablet 40 mg PO QHS #90 tab 09/01/21 [Rx Last Taken Unknown] glucosamine 500 mq-fqncawdzd-fwfxhjkw comp 400 mg-D3 667 unit-C-Mn cap cap PO 01/08/22 [History Last Taken Unknown] omega-3 fatty acids 1,000 mg capsule 1,000 mg PO DAILY 01/08/22 [History Last Taken Unknown] suvorexant 10 mg tablet 10 mg PO QHS 01/08/22 [History Last Taken Unknown] ciprofloxacin HCl 500 mg PO BID #28 tablet 02/04/22 [Rx Last Taken Unknown] tamsulosin mg PO 02/04/22 [History Last Taken Unknown] temazepam mg 02/04/22 [History Last Taken Unknown] Allergy/AdvReac Type Severity Reaction Status Date / Time Sulfa (Sulfonamide Allergy Rash Verified 02/04/22 09:41 Antibiotics) codeine AdvReac Nausea Verified 02/04/22 09:41 ranolazine [From Ranexa] AdvReac I just Verified 02/04/22 09:41 did not like it. Family History Father CAD (coronary artery disease) Mother CAD (coronary artery disease) Sister HLD (hyperlipidemia) TIA (transient ischemic attack) Surgical History History of colectomy History of colonoscopy (~12/20/20) History of left heart catheterization (01/08/16) History of left hip replacement History of lithotripsy History of revision of total hip arthroplasty Social History Smoking Status: Never smoker alcohol intake: never substance use type: does not use caffeine: No what type of physical activity do you participate in: bicycling frequency: daily duration: 30-45 minutes/day seatbelt use: always do you feel safe at home: Yes ROS ROS ED Constitutional Constitutional ED: Denies fever(s) Eyes Eyes: Denies change in vision ENT ENT ED: Denies rhinorrhea or sore throat Cardiovascular Cardiovascular: Denies chest pain or palpitations Respiratory/Chest Respiratory/Chest: Denies cough or dyspnea Gastrointestinal Gastrointestinal: Denies abdominal pain, diarrhea, nausea or vomiting Genitourinary Genitourinary ED: Reports dysuria Musculoskeletal Musculoskeletal: Denies myalgias Integumentary Denies rash Neurologic Neurologic: Denies headache(s) Psychiatric Psychiatric: Denies suicidal thoughts EXAM Physical Exam Const Vital Signs: 02/04/22 09:44 02/04/22 12:05 Temperature 98.0 F Temperature Source Temporal Pulse Rate 71 68 Respiratory Rate 17 18 Blood Pressure 150/77 H 111/72 Blood Pressure Mean 101 85 Pulse Ox 100 97 Oxygen Delivery Method Room Air Room Air Positive well nourished and well developed General Appearance ED: well developed HEENT Reports normocephalic and head/scalp atraumatic Eyes PERRL and EOMs intact bilaterally Neck supple General: Negative for tenderness Chest Wall inspection of chest normal Resp normal respiratory effort and clear to auscultation bilaterally Cardio regular rate and regular rhythm GI non-tender and non-distended Palpation: soft; Negative for guarding or rebound tenderness present Rectal Exam: prostate normal no CVA tenderness Narrative: Normal exam. No testicular tenderness. No discharge. No rash. No hernia palpated. Extremity normal to inspection Neuro oriented x3 Sensorium / Orientation: alert Psych mental status grossly normal Skin no rashes or lesions noted MDM MDM MDM Narrative Medical decision making narrative: Urinalysis is unremarkable. Urine culture was sent. Testicular ultrasound shows small right epididymal cyst with varicocele, small left hydrocele. CT abdomen pelvis shows nonobstructive bilateral intrarenal calculi. stable mild dilatation of the left renal pelvis. Discussed with Dr. Yu. Patient has scheduled appointment with him tomorrow. He will be started on antibiotics for prostatitis. Advised return to ED for worsening complaints. Lab Data Attestation: I reviewed the patient's lab results. Labs: Laboratory Results - last 24 hr 02/04/22 10:53 Urine Color Yellow Urine Clarity Clear Urine pH 6.5 Ur Specific [place] 1.010 Urine Protein Negative Urine Glucose (UA) Normal Urine Ketones Negative Urine Occult Blood Negative Urine Nitrite Negative Urine Bilirubin Negative Urine Urobilinogen Normal Ur Leukocyte Esterase Negative Urine RBC 0 SEEN Urine WBC 0 SEEN Ur Squamous Epith Cells 0 SEEN Urine Bacteria 0 SEEN Urine Mucus 0 SEEN Radiography Diagnostic Testing: Clinical Impression(s) from Imaging Studies Testicular Ultrasound 02/04/22 10:37 IMPRESSION: Small right epididymal cyst with varicocele. Small left hydrocele. Electronically Signed: Ozzy Elizabeth MD at 12:09 EDT , Abdomen/Pelvis CT 02/04/22 10:39 IMPRESSION: Nonobstructive bilateral intrarenal calculi. Stable mild dilatation of the left renal pelvis. Electronically Signed: Ozzy Elizabeth MD at 11:22 EDT , Discharge Plan Triage Chief Complaint: Complaint ED Provider: Liss Reyes Dx/Rx/DC Orders Clinical Impression: Acute prostatitis Instructions: ED Prostatitis Prescriptions: New ciprofloxacin HCl 500 mg tablet 500 mg PO BID Qty: 28 RF: 0 No Action pyridoxine (vitamin B6) 100 mg tablet 100 mg PO QDAY RF: 0 sour emery extract [Tart Emery Extract] 1,000 mg capsule 1,000 mg PO DAILY RF: 0 rivaroxaban 15 mg tablet 15 mg PO DAILY RF: 0 Belsomra 10 mg tablet 10 mg PO QHS RF: 0 omega-3 fatty acids 1,000 mg capsule 1,000 mg PO DAILY RF: 0 whwo-mqiqax-qmbunryc-D3-C-Mn 500-400-667 mg-mg-unit capsule PO RF: 0 folic acid 0.4 MG tablet 0.4 mg PO DAILY RF: 0 multivitamin with folic acid 1 TABLET tablet 1 tab PO DAILY RF: 0 zinc 50 MG tablet 50 mg PO DAILY RF: 0 diphenhydramine-acetaminophen 1 EACH tablet 1 ea PO QHS RF: 0 tamsulosin 0.4 mg capsule PO RF: 0 temazepam 30 mg capsule RF: 0 isosorbide mononitrate 60 mg tablet extended release 24 hr 60 mg PO QAM Qty: 90 RF: 3 clopidogrel 75 mg tablet 75 mg PO DAILY Qty: 90 RF: 3 metoprolol succinate 25 mg tablet extended release 24 hr 25 mg PO DINNER Qty: 90 RF: 3 pravastatin 40 mg tablet 40 mg PO QHS Qty: 90 RF: 3 lisinopril-hydrochlorothiazide 10-12.5 mg tablet 0.5 tab PO DAILY Qty: 45 RF: 3 amlodipine 2.5 mg tablet 2.5 mg PO DAILY Qty: 90 RF: 3 Primary Care Provider: Elijah Rodríguez Referrals: Daljit Yu MD [STAFF PHYSICIAN] - Elijah Rodríguez MD [Primary Care Provider] - Disposition Disposition: Home, Self Care
[2022-02-04] MEDS: Ciprofloxacin 500 MG Tablet PO (13:29)
== END 2022-02-04 13:39 | disposition home or self-care (01) ==
PROVIDERS: Emergency Provider Emergency Medicine; PCP Family Medicine; Visit Provider Emergency Medicine
DX: N41.0 Acute prostatitis (principal); N50.3 Cyst of epididymis; N43.3 Hydrocele, unspecified; I12.9 Hypertensive chronic kidney disease with stage 1 through stage 4 chronic kidney disease, or unspecified chronic kidney disease; N18.30 Chronic kidney disease, stage 3 unspecified; N28.89 Other specified disorders of kidney and ureter; I25.119 Atherosclerotic heart disease of native coronary artery with unspecified angina pectoris; J44.9 Chronic obstructive pulmonary disease, unspecified; E78.5 Hyperlipidemia, unspecified; M19.90 Unspecified osteoarthritis, unspecified site; E66.9 Obesity, unspecified; Z79.01 Long term (current) use of anticoagulants; Z79.02 Long term (current) use of antithrombotics/antiplatelets; Z79.899 Other long term (current) drug therapy; Z86.73 Personal history of transient ischemic attack (TIA), and cerebral infarction without residual deficits; Z96.642 Presence of left artificial hip joint
CPT/HCPCS: 74176; 76870; 81001; 87086; 93976; 99283

== ENCOUNTER → 2023-03-12 | Outpatient (CLI) | payer MEDICARE, SELFPAY ==
[2023-03-12 12:00] LABS: PSA,Total - Annual Screen 0.33 ng/mL (0.00-4.00)
== END | disposition home or self-care (01) ==
PROVIDERS: PCP Family Medicine; Referring Provider Registered Nurse; Visit Provider Registered Nurse
DX: Z12.5 Encounter for screening for malignant neoplasm of prostate (principal)
CPT/HCPCS: 36415; 84153; G0103

== ENCOUNTER → 2023-08-16 | Outpatient (CLI) | payer MEDICARE, SELFPAY ==
--- NOTE | 2023-08-16 13:55 | RAD_ITS ---
INDICATION: HX KIDNEY STONES EXAMINATION/TECHNIQUE: X-RAY - XR Abdomen 1 View COMPARISON: CT abdomen/pelvis dated 02/04/2022 FINDINGS: BOWEL GAS PATTERN: Non-obstructive. No bowel or stomach distention. FREE AIR: Not assessed on a single supine view. ORGANOMEGALY: Not seen. CALCIFICATIONS: Unchanged 6 mm calculus versus 2 adjacent 3 mm calculi in the lower pole of the left kidney. A punctate calculus in the lower pole of the right kidney seen on the prior CT is inconspicuous radiographically. LOWER CHEST: No acute pathology. BONES AND SOFT TISSUES: Previous left total hip with a plasty with acetabular reconstruction. RAD/Abdomen Single View IMPRESSION: Unchanged nonobstructive calculus, lower pole left kidney. Electronically Signed: Catracho Barber MD at 19:44 EDT ,
== END | disposition home or self-care (01) ==
LOC: RAD 13:47
PROVIDERS: PCP Family Medicine; Referring Provider Urology; Visit Provider Urology
DX: Z87.442 Personal history of urinary calculi (principal)
CPT/HCPCS: 74018

== ENCOUNTER → 2024-01-26 | Outpatient (CLI) | payer MEDICARE, SELFPAY ==
[2024-01-26 12:19] LABS: PSA,Total- Diagnostic 0.47 ng/mL (0.0-4.0)
== END | disposition home or self-care (01) ==
LOC: LAB 11:13
PROVIDERS: PCP Family Medicine; Referring Provider Urology; Visit Provider Urology
DX: N40.1 Benign prostatic hyperplasia with lower urinary tract symptoms (principal)
CPT/HCPCS: 36415; 84153

== ENCOUNTER → 2024-05-26 | Outpatient (CLI) | payer MEDICARE, SELFPAY ==
[2024-05-26 11:13] LABS: Absolute Lymphocyte Count 2.63 X10^3/uL (0.83-4.51); Absolute Neutrophil Count 4.5 X10^3/uL (2.0-7.7); Basophil# 0.04 X10^3/uL; Basophil% 0.5 % (0-1); Eosinophil# 0.17 X10^3/uL; Hematocrit 45.7 % (40-54); Hemoglobin 14.8 g/dL (13.0-16.5); Lymphocyte # 2.63 X10^3/ul (0.83-4.51); Mean Corp Hgb Conc 32.4 g/dL (32-36); Mean Corpuscular Hgb 30.8 pg (27.0-32.0); Mean Corpuscular Volume 95.2 fL (80-94); Monocyte# 1.14 X10^3/uL; Monocyte% 13.4 % (0-10); NRBC Flagged by Analyzer 0 % (0-5); Neutrophil # 4.48 X10^3/uL (2.7-7.7); Neutrophil % 52.9 % (47-70); Platelet Count 254 K/mm3 (150-450); RBC Distribution Width CV 12.8 % (11.6-14.6); RBC Distribution Width SD 45.1 fl (35.1-43.9); White Blood Count 8.5 K/mm3 (4.4-11.0)
[2024-05-26 12:01] LABS: AST(SGOT) 28 U/L (15-37); Alanine Aminotransfer ALT/SGPT 32 U/L (16-61); Albumin, Serum 3.5 g/dL (3.2-5.0); Alkaline Phosphatase 77 U/L (45-117); Anion Gap 3 (5-15); BUN 29 mg/dL (7-18); BUN/Creat Ratio 21.6 RATIO (10-20); Bilirubin, Direct 0.18 mg/dL (0.00-0.30); Chloride 108 mmol/L (98-107); Cholesterol 144 mg/dL (200); Creatinine, Serum 1.34 mg/dL (0.70-1.30); EST Glomerular Filtration Rate 55 mL/min (>60); Est Glom Filt Rate - Afr Amer 66 mL/min (>60); Globulin 3.9 g/dL (2.2-4.2); Glucose 102 mg/dL (74-106); High Density Lipoprotein 35 mg/dL; Potassium 4.1 mmol/L (3.5-5.1); Protein, Total 7.4 g/dL (6.4-8.2); Sodium Level 141 mmol/L (136-145); Thyroid Stim Hormone (TSH) 1.39 uIU/mL (0.358-3.74); Triglycerides 233 mg/dL; Very Low Density Lipoprotein 47 mg/dL (5-40)
== END | disposition home or self-care (01) ==
LOC: LAB 10:46
PROVIDERS: PCP Family Medicine; Referring Provider Internal Medicine Cardiovascular Disease; Visit Provider Internal Medicine Cardiovascular Disease
DX: I25.118 Atherosclerotic heart disease of native coronary artery with other forms of angina pectoris (principal); E78.00 Pure hypercholesterolemia, unspecified; I10 Essential (primary) hypertension
CPT/HCPCS: 36415; 80048; 80061; 80076; 84443; 85025

== ENCOUNTER → 2024-07-11 | Outpatient (CLI) | payer MEDICARE, SELFPAY ==
--- NOTE | 2024-07-11 13:48 | ECHOCS_ITS ---
Reason For Study: ASHD Procedure This was a 2D Doppler, Color Flow transthoracic echocardiogram. The study was technically difficult. Due to body habitus. Contrast injection was performed. Exam performed in department. Left Ventricle Normal LV size. Moderate concentric left ventricular hypertrophy. The estimated ejection fraction is 50 %. Stage 1 diastolic dysfunction. No regional wall motion abnormalities noted. Right Ventricle Normal RV size. Normal systolic function. Tricuspid Valve Normal tricuspid valve. Aortic Valve Trisinus/trileaflet aortic valve. Pulmonic Valve Normal pulmonic valve. Great Vessels Normal aortic root. The pulmonary artery is normal size. Normal inferior vena cava. Pericardium/Pleural No pericardial effusion. Medication 22 gauge I.V. with prn adaptor inserted into right arm. Diluted definity 5.0ml given slow IV push to enhance endocardial definition. MMode/2D Measurements & Calculations LVIDd: 4.4 cm IVSd: 1.5 cm Ao root diam: 3.7 cm LVIDs: 3.1 cm LVPWd: 1.3 cm LA dimension: 4.4 cm RVDd: 2.9 cm FS: 28.1 % LAV(MOD-bp): 67.7 ml LVAd ap4: 23.6 cm2 SV(MOD-sp4): 29.7 ml LAV(MOD-bp) Indexed: 29.7 ml/m2 LVLd ap4: 7.2 cm LAV(MOD-sp2): 61.6 ml EDV(MOD-sp4): 63.4 ml LAV(MOD-sp4): 64.2 ml EDV(sp4-el): 65.7 ml LVAs ap4: 16.1 cm2 LVLs ap4: 6.4 cm ESV(MOD-sp4): 33.8 ml ESV(sp4-el): 34.5 ml EF(MOD-sp4): 46.8 % EF(sp4-el): 47.5 % SV(sp4-el): 31.2 ml LA dimension(2D): 4.4 cm LA A4 area: 19.2 cm2 TAPSE: 2.1 cm Time Measurements MV dec time: 0.27 sec Doppler Measurements & Calculations MV E max binh: 43.2 cm/sec Lat Peak E' Binh: 5.9 cm/sec Med Peak E' Binh: 6.7 cm/sec MV A max binh: 75.0 cm/sec E/E' lat: 7.4 E/E' med: 6.4 MV E/A: 0.58 MV V2 max: 82.1 cm/sec MV P1/2t max binh: 46.4 cm/sec Ao V2 max: 101.4 cm/sec MV max P.7 mmHg MV P1/2t: 92.5 msec Ao max P.1 mmHg MV V2 mean: 28.6 cm/sec MV dec slope: 146.9 cm/sec2 Ao V2 mean: 76.1 cm/sec MV mean P.47 mmHg Ao mean P.5 mmHg MV V2 VTI: 17.5 cm MVA(P1/2t): 2.4 cm2 Ao V2 VTI: 20.9 cm AV (velocity ratio): 0.88 LV V1 max: 91.3 cm/sec PA V2 max: 76.9 cm/sec LV V1 max P.3 mmHg PA V2 mean: 51.6 cm/sec LV V1 mean P.9 mmHg LV V1 mean: 65.4 cm/sec LV V1 VTI: 18.4 cm ECHO/Echo Complete W/ Contrast Interpretation Summary Normal LV size. Moderate concentric left ventricular hypertrophy. The estimated ejection fraction is 50 %. Stage 1 diastolic dysfunction. Ordering Physician: Austen Andujra Referring Physician: Elijah Rodríguez Performed By: Shruthi Lobo, DRE, RVT
== END | disposition home or self-care (01) ==
PROVIDERS: PCP Family Medicine; Referring Provider Internal Medicine Cardiovascular Disease; Visit Provider Internal Medicine Cardiovascular Disease
DX: I25.118 Atherosclerotic heart disease of native coronary artery with other forms of angina pectoris (principal)
CPT/HCPCS: 93306; Q9957; A4216; C8929

== ENCOUNTER → 2025-01-30 | Outpatient (CLI) | payer MEDICARE, SELFPAY ==
[2025-01-30 12:19] LABS: PSA,Total - Annual Screen 0.82 ng/mL (0.02-4.00)
== END | disposition home or self-care (01) ==
LOC: LAB.FUTURE 10:52 → LAB 10:52
PROVIDERS: PCP Family Medicine; Visit Provider Nurse Practitioner
DX: Z12.5 Encounter for screening for malignant neoplasm of prostate (principal)
CPT/HCPCS: 36415; 84153; G0103

== ENCOUNTER 2025-05-14 10:30 | Outpatient (RCR) | payer MEDICARE, SELFPAY ==
--- NOTE | 2025-05-03 13:57 | HP.PTEVAL ---
Patient's Visit Information Visit Information Visit Information: BEATRICE SHORE is a 79 year old M referred to Physical Therapy by Shay Vega PA-C with a diagnosis of presence of L hip joint.L hip pain.. Date of Evaluation: 05/03/25 Physical Therapist: Stefan Lemons, KENYETTAT, OCS, CSCS Visit Plan Frequency: 3x /Week Duration: 4-6 Weeks Plan: 3x/week for 3-6 weeks for IE HEEP quad streetch edge of table 30" 5x 2x/day , avoid aggravating activities treat with STM to L quad and ITB, stretech quad and HS, strenghen hip L mat to funcitonal and work to HEP. Include mat baseed LB ROM and core strength to HEP. Hip exteension ROM. Subjective Subjective: Chloe present. L A month ago I got up and L leg started hurting. Saw doctor the next day during check up and thought maybe tendonitis. massages did not help. prednisone did not help. pain has worsened from L quad to hip and knee. Went back to doctor adn took x rays and bloodwork. Suggested PT. Saw [facility] due to VARUN 20 yrs ago. He said knees or hip may be going bad or back and suggested PT. Activities are effected as it is hard to walk without pain . Uses cane since con in 2 yrs ago. Activities : less plasant life now, Walking to tractor is miserable. [place] Mows yard on riding mower. Exercises: some in am for hip ROM hip and knee, rides ebike 6 miles per day. Basic ADLs : all I. Painful. steps at home to basement normal but painful. sleep is hard to get asleep. Pain L leg: Pain Intensity (Out of 10): 2 Pain Intensity Range: 0 and 7 Comment: sleep is oK Objective Objective: L Walks with cane in R UE and hunched FW and l antalgia. Pain is in lateral hip and times into quad. L hip higher than R in standing and pt says this is normal and he tried a lift in the past and did not help walk better. Tenderness is max at GT and ITB and mod into quad L. Lumbar AROM ext max limited and some lateral hip apin at end range, flexion adn SB ar min limited. hip ROM L 105 flexion 16 abd, 28 ER. -4 extension. reflexes 1/3 patella adn achilles B sensation WNL to gross light touch B LE. strength, hip abd L 3, R 3+, extension 3 B, flexion 4- B with hip core instability. knee 4/5 strength flex adn ext. ankles 4/5 Balance/Special Test Scores Lower Extremity Functional Score: 28 Goals Goal 1:: I appropriate strength adn stretch for L LE to reduce symptoms. Goal Time Frame: 4-6 Weeks Goal 2:: Pain in L leg 1/10 at worst and 80% better Goal Time Frame: 4-6 Weeks Goal 3:: walk without antalgia L Goal Time Frame: 4-6 Weeks Goal 4:: LEFS score 40 Goal Time Frame: 4-6 Weeks Rehabilitation Potential Physical Therapy Diagnosis: limping and pain L leg limiting comfortable funciton Rehabilitation Potential: Fair Anticipated Interventions Patient/Client Instruction: Educate patient on: Condition and Plan of Care For the Purpose of:: To decrease pain, To increase ROM, To improve nutrient delivery to tissue, To improve muscle performance and motor function and To increase tolerance to activity/condition/position Therapeutic Exercise to Include: Postural training, Flexibilty training, Passive ROM and Active ROM For the Purpose of:: To decrease pain, To increase ROM, To improve nutrient delivery to tissue and To improve muscle performance and motor function Manual Therapy Techniques to Include: Passive ROM and Soft tissue mobilization For the Purpose of:: To decrease pain, To increase ROM and To improve nutrient delivery to tissue Text: Thank you for the opportunity to evaluate your patient. For Medicare and Medicare HMO plans, please review the plan of care and approve it. It will need to be FAXED BACK to us at [phone] for Medicare purposes. For Medicare only, by signing this I certify the plan of care. Please let me know if there are questions or concerns regarding this plan of care. Physician Signature: Date:
--- NOTE | 2025-07-20 08:36 | HP.PT.NRP ---
Patient Information Patient Information: BEATRICE SHORE was seen in my office for initial evaluation on 05/03/25. The following Plan of Care was established for this patient: POC Established Initial Frequency: 3x /Week Initial Duration: 4-6 Weeks Anticipated Interventions Patient/Client Instruction: Educate patient on: Condition and Plan of Care For the Purpose of:: To decrease pain, To increase ROM, To improve nutrient delivery to tissue, To improve muscle performance and motor function and To increase tolerance to activity/condition/position Therapeutic Exercise to Include: Postural training, Flexibilty training, Passive ROM and Active ROM For the Purpose of:: To decrease pain, To increase ROM, To improve nutrient delivery to tissue and To improve muscle performance and motor function Manual Therapy Techniques to Include: Passive ROM and Soft tissue mobilization For the Purpose of:: To decrease pain, To increase ROM and To improve nutrient delivery to tissue Last Seen Last Seen: This patient was last seen in our office 05/14/25. Pertinent comments regarding their Physical therapy will appear below: Pt seen 4 visits of POC but did not schedule or attend any further visits. At this point, it has been over two months and I will discontinue from my care. At this point I will be discontinuing this patient from physical therapy. I would be happy to see this patient again in the future if found appropriate by the physician. Thank you! Stefan Lemons, DPT, OCS, CSCS Balance/Gait/Functional tests Balance/Special Test Scores Lower Extremity Functional Score: 28
== END 2025-05-14 19:00 | disposition home or self-care (01) ==
LOC: PT 10:30
PROVIDERS: PCP Family Medicine; Referring Provider Physician Assistant Surgical; Visit Provider Physician Assistant Surgical
DX: Z96.642 Presence of left artificial hip joint (principal); M79.652 Pain in left thigh
CPT/HCPCS: 97110; 97161; 97530

== ENCOUNTER 2025-05-14 11:52 | Emergency (ER) | payer MEDICARE, SELFPAY ==
[2025-05-14 11:54] VITALS: BP 126/79; PULSE 71; RESP 16; TEMP 37; O2SAT 97
[2025-05-14 16:10] VITALS: BP 155/79; PULSE 68; RESP 16; TEMP 36.6; O2SAT 100
== END 2025-05-14 16:11 | disposition home or self-care (01) ==
PROVIDERS: Emergency Provider Surgery; Visit Provider Surgery
DX: M79.652 Pain in left thigh (principal); J44.9 Chronic obstructive pulmonary disease, unspecified; N18.30 Chronic kidney disease, stage 3 unspecified; I25.10 Atherosclerotic heart disease of native coronary artery without angina pectoris; I12.9 Hypertensive chronic kidney disease with stage 1 through stage 4 chronic kidney disease, or unspecified chronic kidney disease; E78.5 Hyperlipidemia, unspecified; Z96.642 Presence of left artificial hip joint; Z79.899 Other long term (current) drug therapy
CPT/HCPCS: 72170; 73552; 93971; 99283